=== PATIENT | male | born 1950 | race African-American/Black ===

== ENCOUNTER 2016-11-04 08:01 | Inpatient (IN) | payer MEDICARE, OTHER ==
[2016-11-04] MEDS ORDERED: LORAZEPAM INJ 2 MG/1 ML VIAL IM ONE (08:08)
[2016-11-04] MEDS ORDERED: LORAZEPAM INJ 2 MG/1 ML VIAL ONE ×2 (08:09→10:47)
--- NOTE | 2016-11-04 08:29 | ER Document Report ---
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 It is noted that the patient has been vomiting for past 2 days has not been holding his medications down. denies any other complaints denies any fevers or chills denies any abdominal pain. Patient did have a 2 minute seizure at home, on arrival here patient did have a another focal seizure eyes were to the left, unresponsive TRAVEL OUTSIDE OF THE [place] IN LAST 30 DAYS: No - HPI Onset: Just prior to arrival Onset/Duration: Sudden Quality of pain: No pain Severity: Mild Pain Level: Denies Associated symptoms: Nausea, Vomiting, Other Exacerbated by: Denies Relieved by: Denies Similar symptoms previously: Yes Recently seen / treated by doctor: Yes - Related Data Allergies/Adverse Reactions: No Known Allergies Allergy (Verified 05/14/14 09:35) Past Medical History - Social History Smoking Status: Never Smoker Cigarette use (# per day): No Chew tobacco use (# tins/day): No Smoking Education Provided: No Family History: Reviewed & Not Pertinent - Past Medical History Cardiac Medical History: Reports: Hx Hypercholesterolemia, Hx Hypertension Neurological Medical History: Reports: Hx Seizures Psychiatric Medical History: Denies: Hx Depression Past Surgical History: Reports: Hx Neurologic Surgery - Brain tumor removal - Immunizations Hx Diphtheria, Pertussis, Tetanus Vaccination: Yes Hx Pneumococcal Vaccination: 05/16/14 Review of Systems - Review of Systems Notes: REVIEW OF SYSTEMS: CONSTITUTIONAL : Denies fever, chills, or sweats. Denies recent illness. EENT: Denies eye, ear, throat, or mouth pain or symptoms. Denies nasal or sinus congestion or discharge. Denies throat, tongue, or mouth swelling or difficulty swallowing. CARDIOVASCULAR: Denies chest pain. Denies palpitations or racing or irregular heart beat. Denies ankle edema. RESPIRATORY: Denies cough, cold, or chest congestion. Denies shortness of breath, difficulty breathing, or wheezing. GASTROINTESTINAL: Nausea vomiting GENITOURINARY: Denies difficulty urinating, painful urination, burning, frequency, blood in urine, or discharge. MUSCULOSKELETAL: Denies back or neck pain or stiffness. Denies joint pain or swelling. SKIN: Denies rash, lesions or sores. HEMATOLOGIC : Denies easy bruising or bleeding. LYMPHATIC: Denies swollen, enlarged glands. NEUROLOGICAL: Denies confusion or altered mental status. Denies passing out or loss of consciousness. Denies dizziness or lightheadedness. Denies headache. Denies weakness or paralysis or loss of use of either side. Denies problems with gait or speech. Denies sensory loss, numbness, or tingling. Denies seizures. PSYCHIATRIC: Denies anxiety or stress. Denies depression, suicidal ideation, or homicidal ideation. ALL OTHER SYSTEMS REVIEWED AND NEGATIVE. Dictation was performed using [employer] recognition software PHYSICAL EXAMINATION: GENERAL: Well-appearing, well-nourished and in no acute distress. HEAD: Atraumatic, normocephalic. EYES: Pupils equal round and reactive to light, extraocular movements intact, sclera anicteric, conjunctiva are normal. ENT: Nares patent, oropharynx clear without exudates. Moist mucous membranes. NECK: Normal range of motion, supple without lymphadenopathy LUNGS: Breath sounds clear to auscultation bilaterally and equal. No wheezes rales or rhonchi. HEART: Regular rate and rhythm without murmurs ABDOMEN: Soft, nontender, nondistended abdomen. No guarding, no rebound. No masses appreciated. Musculoskeletal: Normal range of motion, no pitting or edema. No cyanosis. NEUROLOGICAL: Patient seizing, resolved with Ativan. Patient postictal PSYCH: Normal mood, normal affect. SKIN: Warm, Dry, normal turgor, no rashes or lesions noted. Course - Re-evaluation Re-evalutation: 11/04/16 08:48 I believe the patient's seizure disorder has been worsened with his vomiting and inability to keep down his medications at this time. He has labs ordered at this time 11/04/16 10:28 it appears patient is quite hyponatremic, in acute renal fialure. IV fluids ordered, will admit ot his pcp 11/04/16 10:[address] Duncan who will accept to the [facility], defers on 3% at this time - Laboratory Result Diagrams: 11/04/16 09:37 11/04/16 09:37 Laboratory results interpreted by me: 11/04/16 11/04/16 11/04/16 09:37 09:37 09:37 WBC 14.9 H Hgb 12.8 L Seg Neutrophils % 84.0 H Lymphocytes % 9.9 L Absolute Neutrophils 12.5 H Sodium 117.7 L* Potassium 3.1 L Chloride 75 L BUN 38 H Creatinine 2.63 H Est GFR ( Amer) 30 L Est GFR (Non-Af Amer) 24 L Alkaline Phosphatase 146 H Phenytoin 5.5 L Critical Care Note - Critical Care Note Total time excluding time spent on procedures (mins): 38 Comments: 38 minutes of critical care time spent in direct contact evaluating and reevaluating the patient, treating symptoms, reviewing labs and studies and speaking with family and consultants excluding any procedures Discharge - Discharge Clinical Impression: Dehydration with hyponatremia, Renal insufficiency, Seizure Intractable nausea and vomiting Qualifiers: Vomiting type: unspecified Qualified Code(s): R11.2 - Nausea with vomiting, unspecified Admitting Provider: Todd Unit Admitted: [facility] Referrals: BRAULIO DUNCAN MD [Primary Care Provider] - Follow up as needed
[2016-11-04] MEDS ORDERED: ONDANSETRON HCL INJ/PF 4 MG/2 ML SDV IV ONE (08:38)
[2016-11-04] MEDS ORDERED: PHENYTOIN SODIUM EXTENDED 100 MG CAPSULE PO ONE (08:48)
[2016-11-04] MEDS ORDERED: PHENOBARBITAL 32.4 MG TABLET PO ONE (08:48)
[2016-11-04] MEDS ORDERED: NORMAL SALINE 500 ML IV ONE (08:49)
[2016-11-04 09:58] LABS: ABSOLUTE LYMPHOCYTES (AUTO) 1.5 10^3/uL (0.5-4.7); ABSOLUTE MONOCYTES (AUTO) 0.9 10^3/uL (0.1-1.4); ABSOLUTE NEUT (AUTO) 12.5 10^3/uL (1.7-8.2); BASOPHILS % (AUTO) 0.2 % (0-2); HEMATOCRIT 38.6 % (37.9-51.0); HEMOGLOBIN 12.8 g/dL (13.5-17.0); HGB HCT DIFFERENCE -0.2; LYMPHOCYTES % (AUTO) 9.9 % (13-45); MEAN CORPUSCULAR HEMOGLOBIN 27.6 pg (27.0-33.4); MEAN CORPUSCULAR HGB CONC 33.1 g/dL (32.0-36.0); MEAN CORPUSCULAR VOLUME 83 fl (80-97); MONOCYTES % (AUTO) 5.9 % (3-13); RED BLOOD COUNT 4.63 10^6/uL (4.35-5.55); RED CELL DISTRIBUTION WIDTH 13.6 % (11.5-14.0); WHITE BLOOD COUNT 14.9 10^3/uL (4.0-10.5)
[2016-11-04 10:14] LABS: ALANINE AMINOTRANSFERASE 28 U/L (21-72); ALBUMIN 4.3 g/dL (3.5-5.0); ALKALINE PHOSPHATASE 146 U/L (38-126); ASPARTATE AMINO TRANSFERASE 51 U/L (17-59); BILIRUBIN,DIRECT 0.2 mg/dL (0.0-0.4); BILIRUBIN,TOTAL 0.8 mg/dL (0.2-1.3); BLOOD UREA NITROGEN 38 mg/dL (7-20); CALCIUM 8.5 mg/dL (8.4-10.2); CARBON DIOXIDE 22 mmol/L (22-30); CHLORIDE 75 mmol/L (98-107); CREATININE RESULT 2.63 mg/dL (0.52-1.25); GLUCOSE 97 mg/dL (75-110); POTASSIUM 3.1 mmol/L (3.6-5.0)
[2016-11-04] MEDS ORDERED: NORMAL SALINE 1000 ML 1,000 ML IV ONE (10:21)
[2016-11-04 10:24] LABS: SODIUM 117.7 mmol/L (137-145)
[2016-11-04 10:25] LABS: ANION GAP 19 (5-19)
[2016-11-04] MEDS ORDERED: PROMETHAZINE HCL INJ 25 MG/1 ML VIAL IV PRN (17:54)
--- NOTE | 2016-11-04 18:22 | PDOC H&P ---
History of Present Illness Admission Date/PCP: 11/04/16 10:44 BRAULIO MEHDIVICTORIANOBRENNEN Patient complains of: Seizure, vomiting History of Present Illness: SEAN BECERRA is a 66 year old male known to my practice who was brought to the ED by medic due spousal reported episode of seizure activity at home. It was reported as tonic-clonic type that lasted about 2 minutes and recurrent at home before his alerted EMS. He had another episode while been evaluated in the ED. Spouse reported episodes of nausea and vomiting for the past 3 days. She denied any recent alcohol usage or ingestion by the patient. Due to his nausea and vomiting maintenance on his anti seizure medication have been difficult. Spouse reported complain about abdominal pain and persistent hiccups. She denied associated diarrhea, fever, or chills. No reported chest pain, or difficulty with breathing. There rattling cough without significant sputum production. At the time of my evaluation patient has had IV Lorazepam, oral Dilantin and Phenobarbital administration, following command but not full at his preadmission state. Past Medical History Cardiac Medical History: Reports: Hyperlipidema, Hypertension Neurological Medical History: Reports: Seizures Psychiatric Medical History: Denies: Depression Social History Smoking Status: Former Smoker Number of Years Smokin Last Time Smoked: 4 yrs ago Frequency of Alcohol Use: None Hx Recreational Drug Use: No Drugs: None Hx Prescription Drug Abuse: No - Advance Directive Resuscitation Status: Full Code Family History Family History: Reviewed & Not Pertinent Parental Family History Reviewed: Yes Children Family History Reviewed: Yes Sibling(s) Family History Reviewed.: Yes Medication/Allergy Home Medications: Aspirin [Ecotrin 81 mg EC Tablet] 81 mg PO DAILY 11/04/16 Gabapentin [Neurontin 300 mg Capsule] 300 mg PO Q8 11/04/16 Lisinopril [Prinivil 10 mg Tablet] 10 mg PO DAILY 11/04/16 Phenobarbital [Phenobarbital 32.4 Mg Tablet] 32.4 mg PO BID 11/04/16 Phenytoin Sodium Extended [Dilantin 100 mg Capsule.er] 100 mg PO QAM 11/04/16 Phenytoin Sodium Extended [Dilantin 100 mg Capsule.er] 100 mg PO QHS 11/04/16 Phenytoin Sodium Extended [Dilantin 100 mg Capsule.er] 200 mg PO DAILY@1400 01/15 Simvastatin [Zocor 10 mg Tablet] 10 mg PO QHS 11/04/16 Simvastatin [Zocor 20 mg Tablet] 20 mg PO DAILY 11/04/16 Allergies/Adverse Reactions: No Known Allergies Allergy (Verified 05/14/14 09:35) Review of Systems Constitutional: ABSENT: chills, fever(s), headache(s), weight gain, weight loss Eyes: ABSENT: visual disturbances Ears: ABSENT: hearing changes Nose, Mouth, and Throat: ABSENT: as per HPI, headache(s), mouth pain, sore throat, vertigo, other Cardiovascular: ABSENT: chest pain, dyspnea on exertion, edema, orthropnea, palpitations Respiratory: ABSENT: cough, hemoptysis Gastrointestinal: PRESENT: abdominal pain, nausea, vomiting. ABSENT: as per HPI , bloating, coffee ground emesis, constipation, diarrhea, dysphagia, heartburn, hematemesis, hematochezia, melena, other Genitourinary: ABSENT: dysuria, hematuria Musculoskeletal: ABSENT: joint swelling Integumentary: ABSENT: rash, wounds Neurological: PRESENT: confusion - post ictal, convulsions Psychiatric: ABSENT: anxiety, depression, homidical ideation, suicidal ideation Endocrine: ABSENT: cold intolerance, heat intolerance, polydipsia, polyuria Hematologic/Lymphatic: ABSENT: easy bleeding, easy bruising, lymphadenopathy Allergic/Immunologic: PRESENT: seasonal rhinorrhea Physical Exam Vital Signs: Temp Pulse Resp BP Pulse Ox 98.5 F 85 19 170/99 H 98 11/04/16 16:52 11/04/16 16:52 11/04/16 16:52 11/04/16 16:52 11/04/16 17:51 Intake & Output 11/03/16 11/04/16 11/05/16 06:59 06:59 06:59 Weight 77.8 kg General appearance: PRESENT: no acute distress, cooperative Head exam: PRESENT: atraumatic, normocephalic Eye exam: PRESENT: conjunctiva pink, EOMI, PERRLA. ABSENT: scleral icterus Ear exam: PRESENT: normal external ear exam Mouth exam: PRESENT: moist, tongue midline Teeth exam: ABSENT: dental caries, dental tenderness, edentulous, poor dentation , other Throat exam: ABSENT: post pharyngeal erythema, tonsillar erythema, tonsillar exudate, tonsillogmegaly, other Neck exam: PRESENT: full ROM. ABSENT: carotid bruit, JVD, lymphadenopathy, thyromegaly Respiratory exam: PRESENT: clear to auscultation tripp, crackles - scattered bilaterally, decreased breath sounds Cardiovascular exam: PRESENT: RRR. ABSENT: diastolic murmur, rubs, systolic murmur Pulses: PRESENT: normal dorsalis pedis pul, +2 pedal pulses bilateral Vascular exam: PRESENT: normal capillary refill GI/Abdominal exam: PRESENT: normal bowel sounds, soft. ABSENT: distended, guarding, mass, organolmegaly, rebound, tenderness Rectal exam: PRESENT: deferred Extremities exam: PRESENT: full ROM Musculoskeletal exam: PRESENT: deformity - related to joint involvement with arthritis Neurological exam: PRESENT: alert, awake, oriented to person, reflexes normal, CN II-XII grossly intact. ABSENT: altered, oriented to place, oriented to time , oriented to situation, abnormal gait, ataxia, motor sensory deficit, normal gait, aphasic, other Psychiatric exam: PRESENT: appropriate affect, normal mood. ABSENT: homicidal ideation, suicidal ideation Skin exam: PRESENT: dry, intact, warm. ABSENT: cyanosis, rash Results Laboratory Results: See Weekdone for laboratory information. These were reviewed and form significant part of my medial decision making. Assessment & Plan - Diagnosis (1) Dehydration with hyponatremia Is this a current diagnosis for this admission?: YesPlan: See admitting physician orders. (2) Intractable nausea and vomiting Qualifiers: Vomiting type: unspecified Qualified Code(s): R11.2 - Nausea with vomiting, unspecified Is this a current diagnosis for this admission?: YesPlan: See admitting physician orders. (4) Intractable hiccups Is this a current diagnosis for this admission?: YesPlan: See admitting physician orders. (5) HLD (hyperlipidemia) Qualifiers: Hyperlipidemia type: pure hypercholesterolemia Qualified Code(s): E78.00 - Pure hypercholesterolemia, unspecified; E78.0 - Pure hypercholesterolemia Is this a current diagnosis for this admission?: YesPlan: See admitting physician orders. (6) HTN (hypertension) Qualifiers: Hypertension type: essential hypertension Qualified Code(s): I10 - Essential (primary) hypertension Is this a current diagnosis for this admission?: YesPlan: See admitting physician orders. (7) Hypopotassemia Is this a current diagnosis for this admission?: YesPlan: See admitting physician orders. 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
[2016-11-04] MEDS ORDERED: CHLORPROMAZINE HCL INJ 25 MG/1 ML AMPULE IV ONE (19:00)
[2016-11-04] MEDS: PHENOBARBITAL 32.4 MG TABLET PO SCH (19:49)
[2016-11-04] MEDS: NORMAL SALINE 1000 ML 1,000 ML IV PRN (19:50)
[2016-11-04] MEDS: SIMVASTATIN 10 MG TABLET PO SCH (22:40)
[2016-11-04] MEDS: GABAPENTIN 300 MG CAPSULE PO SCH (22:40)
[2016-11-04] MEDS: PHENYTOIN SODIUM EXTENDED 100 MG CAPSULE PO SCH (22:40)
[2016-11-04 23:39] LABS: APPEARANCE,URINE CLEAR; BILIRUBIN,URINE NEGATIVE (NEGATIVE); GLUCOSE, URINE NEGATIVE (NEGATIVE); KETONES,URINE TRACE mg/dL (NEGATIVE); LEUKOCYTE ESTERASE,URINE NEGATIVE (NEGATIVE); NITRITE,URINE NEGATIVE (NEGATIVE); PROTEIN,URINE NEGATIVE (NEGATIVE); URINE SPECIFIC GRAVITY 1.003; UROBILINOGEN,URINE NEGATIVE mg/dL (<2.0)
[2016-11-05 05:13] LABS: ABSOLUTE LYMPHOCYTES (AUTO) 1.6 10^3/uL (0.5-4.7); ABSOLUTE MONOCYTES (AUTO) 0.8 10^3/uL (0.1-1.4); BASOPHILS % (AUTO) 0.1 % (0-2); HEMOGLOBIN 14.2 g/dL (13.5-17.0); HGB HCT DIFFERENCE -1.4; MEAN CORPUSCULAR HEMOGLOBIN 27.3 pg (27.0-33.4); MEAN CORPUSCULAR HGB CONC 32.2 g/dL (32.0-36.0); MEAN CORPUSCULAR VOLUME 85 fl (80-97); MONOCYTES % (AUTO) 10.1 % (3-13); RED BLOOD COUNT 5.18 10^6/uL (4.35-5.55); RED CELL DISTRIBUTION WIDTH 13.8 % (11.5-14.0); SEGMENTED NEUTROPHILS % (AUTO) 67.8 % (42-78); WHITE BLOOD COUNT 7.5 10^3/uL (4.0-10.5)
[2016-11-05] MEDS: GABAPENTIN 300 MG CAPSULE PO SCH ×3 (05:21→21:38)
[2016-11-05] MEDS: NORMAL SALINE 1000 ML 1,000 ML IV PRN ×2 (05:21→15:24)
[2016-11-05] MEDS: LANSOPRAZOLE 30 MG TAB.RAP.DR PO SCH (05:21)
[2016-11-05 05:28] LABS: ALANINE AMINOTRANSFERASE 31 U/L (21-72); ALBUMIN 4.5 g/dL (3.5-5.0); ALKALINE PHOSPHATASE 153 U/L (38-126); ANION GAP 14 (5-19); ASPARTATE AMINO TRANSFERASE 52 U/L (17-59); BILIRUBIN,DIRECT 0.4 mg/dL (0.0-0.4); BILIRUBIN,TOTAL 1.2 mg/dL (0.2-1.3); BLOOD UREA NITROGEN 27 mg/dL (7-20); CALCIUM 9.1 mg/dL (8.4-10.2); CARBON DIOXIDE 29 mmol/L (22-30); CHLORIDE 91 mmol/L (98-107); CREATININE RESULT 1.45 mg/dL (0.52-1.25); GLUCOSE 102 mg/dL (75-110); POTASSIUM 3.1 mmol/L (3.6-5.0); SODIUM 133.8 mmol/L (137-145); TOTAL PROTEIN 8.8 g/dL (6.3-8.2)
[2016-11-05] MEDS: ENOXAPARIN SODIUM INJ 40 MG/0.4 ML DISP.SYRIN SUBCUT SCH (09:16)
[2016-11-05] MEDS: PHENOBARBITAL 32.4 MG TABLET PO SCH ×2 (09:16→19:01)
[2016-11-05] MEDS: LISINOPRIL 10 MG TABLET PO SCH (09:16)
[2016-11-05] MEDS: PHENYTOIN SODIUM EXTENDED 100 MG CAPSULE PO SCH ×3 (09:17→21:38)
[2016-11-05] MEDS: POTASSIUM CHLORIDE 10 MEQ TABLET.SA PO SCH ×2 (11:09→13:05)
--- NOTE | 2016-11-05 14:57 | PDOC PROGRESS REPORT ---
Subjective Progress Note for:: 11/05/16 Subjective:: Patient is more lucid and able to contribute to his medical history at the time of my assessment this afternoon but assumed admission due to his persistent hiccups. Denied any nausea or vomiting. No abdominal pain. His hiccups do persist. No chest pain or difficulty with breathing. Physical Exam Vital Signs: Temp Pulse Resp BP Pulse Ox 99.8 F 83 27 H 151/73 H 98 11/05/16 11:46 11/05/16 14:00 11/05/16 11:46 11/05/16 11:46 11/05/16 11:46 Intake & Output 11/04/16 11/05/16 11/06/16 06:59 06:59 06:59 Intake Total 1288 710 Output Total 800 1000 Balance 488 -290 General appearance: PRESENT: no acute distress, cooperative Head exam: PRESENT: atraumatic, normocephalic Eye exam: PRESENT: conjunctiva pink, EOMI, PERRLA. ABSENT: scleral icterus Mouth exam: PRESENT: moist Respiratory exam: PRESENT: clear to auscultation tripp Cardiovascular exam: PRESENT: RRR. ABSENT: diastolic murmur, rubs, systolic murmur GI/Abdominal exam: PRESENT: normal bowel sounds, soft. ABSENT: distended, guarding, mass, organolmegaly, rebound, tenderness Extremities exam: PRESENT: full ROM Musculoskeletal exam: PRESENT: deformity - related to joint involvement with arthritis Neurological exam: PRESENT: alert, awake, oriented to person, oriented to place , oriented to time, oriented to situation, CN II-XII grossly intact, other - there is persistent hiccups throughout the duration of my visit.. ABSENT: motor sensory deficit Psychiatric exam: PRESENT: appropriate affect, normal mood. ABSENT: homicidal ideation, suicidal ideation Skin exam: PRESENT: dry, intact, warm. ABSENT: cyanosis, rash Results Laboratory Results: 11/05/16 04:51 11/05/16 04:51 11/04/16 11/05/16 11/05/16 23:15 04:51 04:51 WBC 7.5 RBC 5.18 Hgb 14.2 Hct 44.0 MCV 85 MCH 27.3 MCHC 32.2 RDW 13.8 Plt Count 216 Seg Neutrophils % 67.8 Lymphocytes % 22.0 Monocytes % 10.1 Eosinophils % 0.0 Basophils % 0.1 Absolute Neutrophils 5.0 Absolute Lymphocytes 1.6 Absolute Monocytes 0.8 Absolute Eosinophils 0.0 Absolute Basophils 0.0 Sodium 133.8 L Potassium 3.1 L Chloride 91 L Carbon Dioxide 29 Anion Gap 14 BUN 27 H Creatinine 1.45 H Est GFR ( Amer) 59 L Est GFR (Non-Af Amer) 49 L Glucose 102 Calcium 9.1 Magnesium Total Bilirubin 1.2 AST 52 ALT 31 Alkaline Phosphatase 153 H Total Protein 8.8 H Albumin 4.5 Urine Color STRAW Urine Appearance CLEAR Urine pH 6.0 Ur Specific [place] 1.003 Urine Protein NEGATIVE Urine Glucose (UA) NEGATIVE Urine Ketones TRACE H Urine Blood MODERATE H Urine Nitrite NEGATIVE Ur Leukocyte Esterase NEGATIVE Urine WBC (Auto) 1 Urine RBC (Auto) 0 11/05/16 04:51 WBC RBC Hgb Hct MCV MCH MCHC RDW Plt Count Seg Neutrophils % Lymphocytes % Monocytes % Eosinophils % Basophils % Absolute Neutrophils Absolute Lymphocytes Absolute Monocytes Absolute Eosinophils Absolute Basophils Sodium Potassium Chloride Carbon Dioxide Anion Gap BUN Creatinine Est GFR ( Amer) Est GFR (Non-Af Amer) Glucose Calcium Magnesium 2.3 Total Bilirubin AST ALT Alkaline Phosphatase Total Protein Albumin Urine Color Urine Appearance Urine pH Ur Specific [place] Urine Protein Urine Glucose (UA) Urine Ketones Urine Blood Urine Nitrite Ur Leukocyte Esterase Urine WBC (Auto) Urine RBC (Auto) Impressions: Chest X-Ray 11/04/16 00:00 IMPRESSION: NO SIGNIFICANT RADIOGRAPHIC FINDING IN THE CHEST. Assessment & Plan - Diagnosis (1) Dehydration with hyponatremia Is this a current diagnosis for this admission?: YesPlan: Continue IV Normal saline infusion. Repeat his BMP as needed. (2) Intractable nausea and vomiting Qualifiers: Vomiting type: unspecified Qualified Code(s): R11.2 - Nausea with vomiting, unspecified Is this a current diagnosis for this admission?: YesPlan: See attending physician orders. (3) Seizure Is this a current diagnosis for this admission?: YesPlan: See attending physician orders. (4) Intractable hiccups Is this a current diagnosis for this admission?: YesPlan: See attending physician orders. (5) HLD (hyperlipidemia) Qualifiers: Hyperlipidemia type: pure hypercholesterolemia Qualified Code(s): E78.00 - Pure hypercholesterolemia, unspecified; E78.0 - Pure hypercholesterolemia Is this a current diagnosis for this admission?: YesPlan: See attending physician orders. (6) HTN (hypertension) Qualifiers: Hypertension type: essential hypertension Qualified Code(s): I10 - Essential (primary) hypertension Is this a current diagnosis for this admission?: YesPlan: See attending physician orders. (7) Hypopotassemia Is this a current diagnosis for this admission?: YesPlan: See attending physician orders. Patient received oral supplementation of potassium chloride for his persistent hypokalemia. - Time Time Spent with patient: 25-34 minutes Medications reviewed and adjusted accordingly: Yes Anticipated discharge: Home with Homehealth Within: Other - Inpatient Certification Medical Necessity: Need Close Monitoring Due to Risk of Patient Decompensation, Need For IV Fluids, Risk of Complication if Not Cared For in Hospital Post Hospital Care: D/C Stain Applicator Documentation - Plan Summary Plan Summary: See attending physician orders.
[2016-11-05] MEDS ORDERED: CHLORPROMAZINE HCL INJ 25 MG/1 ML AMPULE IV ONE (16:30)
[2016-11-05] MEDS: SIMVASTATIN 10 MG TABLET PO SCH (21:38)
[2016-11-06] MEDS: NORMAL SALINE 1000 ML 1,000 ML IV PRN ×2 (03:09→14:12)
[2016-11-06] MEDS: GABAPENTIN 300 MG CAPSULE PO SCH ×2 (05:51→21:05)
[2016-11-06] MEDS: LANSOPRAZOLE 30 MG TAB.RAP.DR PO SCH (05:51)
[2016-11-06] MEDS: PHENYTOIN SODIUM EXTENDED 100 MG CAPSULE PO SCH ×3 (08:35→21:06)
[2016-11-06] MEDS: ENOXAPARIN SODIUM INJ 40 MG/0.4 ML DISP.SYRIN SUBCUT SCH (08:35)
[2016-11-06] MEDS: PHENOBARBITAL 32.4 MG TABLET PO SCH ×2 (10:09→17:22)
[2016-11-06] MEDS: LISINOPRIL 10 MG TABLET PO SCH (10:09)
[2016-11-06 12:41] LABS: ANION GAP 18 (5-19); BLOOD UREA NITROGEN 20 mg/dL (7-20); CALCIUM 9.1 mg/dL (8.4-10.2); CARBON DIOXIDE 22 mmol/L (22-30); CHLORIDE 100 mmol/L (98-107); CREATININE RESULT 1.01 mg/dL (0.52-1.25); GLUCOSE 72 mg/dL (75-110); POTASSIUM 3.9 mmol/L (3.6-5.0); SODIUM 139.7 mmol/L (137-145)
--- NOTE | 2016-11-06 13:29 | PDOC PROGRESS REPORT ---
Subjective Progress Note for:: 11/06/16 Subjective:: Patient's hiccups spells do continue but less intense. No chest pain or difficulty with breathing. No nausea, vomiting, or abdominal pain. No fever or chills. Less coughing and chest congestion. Physical Exam Vital Signs: Temp Pulse Resp BP Pulse Ox 98.7 F 76 18 177/91 H 97 11/06/16 08:00 11/06/16 08:00 11/06/16 08:00 11/06/16 08:00 11/06/16 08:00 Intake & Output 11/05/16 11/06/16 11/07/16 06:59 06:59 06:59 Intake Total 1288 4016 355 Output Total 800 1700 300 Balance 488 2316 55 Weight 77.6 kg Physical Exam: General appearance: PRESENT: no acute distress, cooperative Head exam: PRESENT: atraumatic, normocephalic Eye exam: PRESENT: conjunctiva pink, EOMI, PERRLA. ABSENT: scleral icterus Mouth exam: PRESENT: moist Respiratory exam: PRESENT: clear to auscultation tripp Cardiovascular exam: PRESENT: RRR. ABSENT: diastolic murmur, rubs, systolic murmur GI/Abdominal exam: PRESENT: normal bowel sounds, soft. ABSENT: distended, guarding, mass, organomegaly, rebound, tenderness Extremities exam: PRESENT: full ROM Musculoskeletal exam: PRESENT: deformity - related to joint involvement with arthritis Neurological exam: PRESENT: alert, awake, oriented to person, oriented to place , oriented to time, oriented to situation, CN II-XII grossly intact, other - there are episodes of hiccups duration of my visit.. ABSENT: motor sensory deficit Psychiatric exam: PRESENT: appropriate affect, normal mood. ABSENT: homicidal ideation, suicidal ideation Skin exam: PRESENT: dry, intact, warm. ABSENT: cyanosis, rash Results Laboratory Results: 11/05/16 04:51 11/06/16 12:07 11/06/16 12:07 Sodium 139.7 Potassium 3.9 Chloride 100 Carbon Dioxide 22 Anion Gap 18 BUN 20 Creatinine 1.01 Est GFR ( Amer) > 60 Est GFR (Non-Af Amer) > 60 Glucose 72 L Calcium 9.1 Impressions: Chest X-Ray 11/04/16 00:00 IMPRESSION: NO SIGNIFICANT RADIOGRAPHIC FINDING IN THE CHEST. Assessment & Plan - Diagnosis (1) Dehydration with hyponatremia Is this a current diagnosis for this admission?: YesPlan: Continue IV Normal saline infusion. See attending physician orders. (2) Intractable nausea and vomiting Qualifiers: Vomiting type: unspecified Qualified Code(s): R11.2 - Nausea with vomiting, unspecified Is this a current diagnosis for this admission?: YesPlan: See attending physician orders. (3) Seizure Is this a current diagnosis for this admission?: YesPlan: See attending physician orders. (4) Intractable hiccups Is this a current diagnosis for this admission?: YesPlan: See attending physician orders. I will increase Gabapentin to 600 mg p.o q8hrs. (5) HLD (hyperlipidemia) Qualifiers: Hyperlipidemia type: pure hypercholesterolemia Qualified Code(s): E78.00 - Pure hypercholesterolemia, unspecified; E78.0 - Pure hypercholesterolemia Is this a current diagnosis for this admission?: YesPlan: See attending physician orders. (6) HTN (hypertension) Qualifiers: Hypertension type: essential hypertension Qualified Code(s): I10 - Essential (primary) hypertension Is this a current diagnosis for this admission?: YesPlan: See attending physician orders. (7) Hypopotassemia Is this a current diagnosis for this admission?: YesPlan: See attending physician orders. Resolved. - Time Time Spent with patient: 25-34 minutes Medications reviewed and adjusted accordingly: Yes Anticipated discharge: Home Within: Other - Inpatient Certification Medical Necessity: Need Close Monitoring Due to Risk of Patient Decompensation, Need For IV Fluids, Need For Continuous Telemetry Monitoring, Risk of Complication if Not Cared For in Hospital Post Hospital Care: D/C Sheet Ironworker Documentation - Plan Summary Plan Summary: See attending physician orders.
[2016-11-06] MEDS ORDERED: GABAPENTIN 300 MG CAPSULE PO ONE (15:00)
[2016-11-06] MEDS: SIMVASTATIN 10 MG TABLET PO SCH (21:05)
[2016-11-07] MEDS: GABAPENTIN 300 MG CAPSULE PO SCH ×3 (06:28→21:14)
[2016-11-07] MEDS: LANSOPRAZOLE 30 MG TAB.RAP.DR PO SCH (06:29)
[2016-11-07] MEDS: PHENYTOIN SODIUM EXTENDED 100 MG CAPSULE PO SCH ×3 (08:43→21:14)
[2016-11-07] MEDS: ENOXAPARIN SODIUM INJ 40 MG/0.4 ML DISP.SYRIN SUBCUT SCH (08:43)
[2016-11-07] MEDS: LISINOPRIL 10 MG TABLET PO SCH (09:31)
[2016-11-07] MEDS: PHENOBARBITAL 32.4 MG TABLET PO SCH ×2 (09:31→17:45)
--- NOTE | 2016-11-07 11:48 | PDOC PROGRESS REPORT ---
Subjective Progress Note for:: 11/07/16 Subjective:: Patient's hiccups spells is improving with adjustment of his Gabapentin dosage. No seizure activity since last clinical evaluation. No chest pain or difficulty with breathing. No nausea, vomiting, or abdominal pain. No fever or chills. Less coughing and chest congestion. Physical Exam Vital Signs: Temp Pulse Resp BP Pulse Ox 98.7 F 71 18 143/73 H 98 11/07/16 07:14 11/07/16 07:14 11/07/16 07:14 11/07/16 07:14 11/07/16 07:14 Intake & Output 11/06/16 11/07/16 11/08/16 06:59 06:59 06:59 Intake Total 4016 4882 Output Total 1700 2350 Balance 2316 2532 Weight 77.6 kg 73.6 kg Physical Exam: General appearance: PRESENT: no acute distress, cooperative Head exam: PRESENT: atraumatic, normocephalic Eye exam: PRESENT: conjunctiva pink, EOMI, PERRLA. ABSENT: scleral icterus Mouth exam: PRESENT: moist Respiratory exam: PRESENT: clear to auscultation tripp Cardiovascular exam: PRESENT: RRR. ABSENT: diastolic murmur, rubs, systolic murmur GI/Abdominal exam: PRESENT: normal bowel sounds, soft. ABSENT: distended, guarding, mass, organomegaly, rebound, tenderness Extremities exam: PRESENT: full ROM Musculoskeletal exam: PRESENT: deformity - related to joint involvement with arthritis Neurological exam: PRESENT: alert, awake, oriented to person, oriented to place , oriented to time, oriented to situation, CN II-XII grossly intact, other - there are episodes of hiccups duration of my visit.. ABSENT: motor sensory deficit Psychiatric exam: PRESENT: appropriate affect, normal mood. ABSENT: homicidal ideation, suicidal ideation Skin exam: PRESENT: dry, intact, warm. ABSENT: cyanosis, rash Results Laboratory Results: 11/05/16 04:51 11/06/16 12:07 11/06/16 12:07 Sodium 139.7 Potassium 3.9 Chloride 100 Carbon Dioxide 22 Anion Gap 18 BUN 20 Creatinine 1.01 Est GFR ( Amer) > 60 Est GFR (Non-Af Amer) > 60 Glucose 72 L Calcium 9.1 Impressions: Chest X-Ray 11/04/16 00:00 IMPRESSION: NO SIGNIFICANT RADIOGRAPHIC FINDING IN THE CHEST. Assessment & Plan - Diagnosis (1) Dehydration with hyponatremia Is this a current diagnosis for this admission?: YesPlan: Resolved hyponatremia and improved renal indices. D/C IV Normal saline infusion. See attending physician orders. (2) Intractable nausea and vomiting Qualifiers: Vomiting type: unspecified Qualified Code(s): R11.2 - Nausea with vomiting, unspecified Is this a current diagnosis for this admission?: YesPlan: Resolved. See attending physician orders. (3) Seizure Is this a current diagnosis for this admission?: YesPlan: Resolved acute seizure activity. See attending physician orders. (4) Intractable hiccups Is this a current diagnosis for this admission?: YesPlan: Resolved with increased Gabapentin dosage adjustment. See attending physician orders. (5) HLD (hyperlipidemia) Qualifiers: Hyperlipidemia type: pure hypercholesterolemia Qualified Code(s): E78.00 - Pure hypercholesterolemia, unspecified; E78.0 - Pure hypercholesterolemia Is this a current diagnosis for this admission?: YesPlan: See attending physician orders. (6) HTN (hypertension) Qualifiers: Hypertension type: essential hypertension Qualified Code(s): I10 - Essential (primary) hypertension Is this a current diagnosis for this admission?: YesPlan: See attending physician orders. (7) Hypopotassemia Is this a current diagnosis for this admission?: YesPlan: Resolved. See attending physician orders. 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
[2016-11-07] MEDS: NORMAL SALINE 1000 ML 1,000 ML IV PRN (11:55)
[2016-11-07] MEDS ORDERED: PROCHLORPERAZINE EDISYLATE INJ 10 MG/2 ML VIAL IV ONE (16:00)
[2016-11-07] MEDS ORDERED: NORMAL SALINE 500 ML with CHLORPROMAZINE HCL 25 MG IV ONE ×2 (16:30)
[2016-11-07] MEDS ORDERED: NORMAL SALINE IV ONE (17:00)
[2016-11-07] MEDS ORDERED: CHLORPROMAZINE HCL IV ONE (17:00)
[2016-11-07] MEDS: SIMVASTATIN 10 MG TABLET PO SCH (21:14)
[2016-11-08] MEDS: GABAPENTIN 300 MG CAPSULE PO SCH ×3 (05:36→21:14)
[2016-11-08] MEDS: LANSOPRAZOLE 30 MG TAB.RAP.DR PO SCH (05:36)
[2016-11-08] MEDS: PHENYTOIN SODIUM EXTENDED 100 MG CAPSULE PO SCH ×3 (08:38→21:15)
[2016-11-08] MEDS: ENOXAPARIN SODIUM INJ 40 MG/0.4 ML DISP.SYRIN SUBCUT SCH (08:38)
[2016-11-08] MEDS: LISINOPRIL 10 MG TABLET PO SCH (10:32)
[2016-11-08] MEDS: PHENOBARBITAL 32.4 MG TABLET PO SCH ×2 (10:32→17:56)
[2016-11-08] MEDS ORDERED: TRIMETHOBENZAMIDE HCL 300 MG CAPSULE PO PRN (11:59)
--- NOTE | 2016-11-08 12:07 | PDOC PROGRESS REPORT ---
Subjective Progress Note for:: 11/08/16 Subjective:: Patient had episode of nausea with vomiting since last clinical evaluation with need for IV Thorazine administration. No seizure activity, chest pain or difficulty with breathing. No nausea, vomiting, or abdominal pain. No fever or chills. Physical Exam Vital Signs: Temp Pulse Resp BP Pulse Ox 98.4 F 68 18 147/73 H 96 11/08/16 07:20 11/08/16 07:20 11/08/16 07:20 11/08/16 07:20 11/08/16 07:20 Intake & Output 11/07/16 11/08/16 11/09/16 06:59 06:59 06:59 Intake Total 4882 4604 Output Total 2350 3550 Balance 2532 1054 Weight 73.6 kg 71.9 kg Physical Exam: General appearance: PRESENT: no acute distress, cooperative Head exam: PRESENT: atraumatic, normocephalic Eye exam: PRESENT: conjunctiva pink, EOMI, PERRLA. ABSENT: scleral icterus Mouth exam: PRESENT: moist Respiratory exam: PRESENT: clear to auscultation tripp Cardiovascular exam: PRESENT: RRR. ABSENT: diastolic murmur, rubs, systolic murmur GI/Abdominal exam: PRESENT: normal bowel sounds, soft. ABSENT: distended, guarding, mass, organomegaly, rebound, tenderness Extremities exam: PRESENT: full ROM Musculoskeletal exam: PRESENT: deformity - related to joint involvement with arthritis Neurological exam: PRESENT: alert, awake, oriented to person, oriented to place , oriented to time, oriented to situation, CN II-XII grossly intact, ABSENT: motor sensory deficit Psychiatric exam: PRESENT: appropriate affect, normal mood. ABSENT: homicidal ideation, suicidal ideation Skin exam: PRESENT: dry, intact, warm. ABSENT: cyanosis, rash Results Laboratory Results: 11/05/16 04:51 11/06/16 12:07 Impressions: Chest X-Ray 11/04/16 00:00 IMPRESSION: NO SIGNIFICANT RADIOGRAPHIC FINDING IN THE CHEST. Assessment & Plan - Diagnosis (1) Dehydration with hyponatremia Is this a current diagnosis for this admission?: YesPlan: D/C IV Normal saline infusion. See attending physician orders. (2) Intractable nausea and vomiting Qualifiers: Vomiting type: unspecified Qualified Code(s): R11.2 - Nausea with vomiting, unspecified Is this a current diagnosis for this admission?: YesPlan: Resolved. See attending physician orders. (3) Seizure Is this a current diagnosis for this admission?: YesPlan: Resolved acute seizure activity. Emphasized compliance with anti seizure medication upon discharge. See attending physician orders. (4) Intractable hiccups Is this a current diagnosis for this admission?: YesPlan: Improved. See attending physician orders. (5) HLD (hyperlipidemia) Qualifiers: Hyperlipidemia type: pure hypercholesterolemia Qualified Code(s): E78.00 - Pure hypercholesterolemia, unspecified; E78.0 - Pure hypercholesterolemia Is this a current diagnosis for this admission?: YesPlan: See attending physician orders. (6) HTN (hypertension) Qualifiers: Hypertension type: essential hypertension Qualified Code(s): I10 - Essential (primary) hypertension Is this a current diagnosis for this admission?: YesPlan: See attending physician orders. (7) Hypopotassemia Is this a current diagnosis for this admission?: YesPlan: Resolved. See attending physician orders. 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
[2016-11-08] MEDS: SIMVASTATIN 10 MG TABLET PO SCH (21:14)
[2016-11-09] MEDS: GABAPENTIN 300 MG CAPSULE PO SCH (05:51)
[2016-11-09] MEDS: LANSOPRAZOLE 30 MG TAB.RAP.DR PO SCH (05:51)
--- NOTE | 2016-11-09 07:33 | PDOC DISCHARGE SUMMARY ---
General - Admit/Disc Date/PCP Admission Date/Primary Care Provider: 11/04/16 17:46 BRAULIO DAKOTA Discharge Date: 11/09/16 - Discharge Diagnosis (1) Dehydration with hyponatremia Is this a current diagnosis for this admission?: Yes (2) Intractable nausea and vomiting Is this a current diagnosis for this admission?: Yes (3) Seizure Is this a current diagnosis for this admission?: Yes (4) Intractable hiccups Is this a current diagnosis for this admission?: Yes (5) HLD (hyperlipidemia) Is this a current diagnosis for this admission?: Yes (6) HTN (hypertension) Is this a current diagnosis for this admission?: Yes (7) Hypopotassemia Is this a current diagnosis for this admission?: Yes - Additional Information Resuscitation Status: Full Code Discharge Diet: Other (Comments) - Low salt diet Discharge Activity: Activity As Tolerated, No Driving Home Medications: Aspirin [Ecotrin 81 mg EC Tablet] 81 mg PO DAILY 11/04/16 Lisinopril [Prinivil 10 mg Tablet] 10 mg PO DAILY 11/04/16 Phenobarbital [Phenobarbital 32.4 mg Tablet] 32.4 mg PO BID 11/04/16 Phenytoin Sodium Extended [Dilantin 100 mg Capsule.er] 100 mg PO QAM 11/04/16 Phenytoin Sodium Extended [Dilantin 100 mg Capsule.er] 100 mg PO QHS 11/04/16 Phenytoin Sodium Extended [Dilantin 100 mg Capsule.er] 200 mg PO DAILY@1400 01/15 Simvastatin [Zocor 10 mg Tablet] 10 mg PO QHS 11/04/16 Simvastatin [Zocor 20 mg Tablet] 20 mg PO DAILY 11/04/16 Gabapentin [Neurontin] 600 mg PO TID #90 tablet 11/09/16 Trimethobenzamide HCl [Tigan 300 mg Capsule] 300 mg PO QIDP PRN #60 capsule 06/17 History of Present Illness History of Present Illness: SEAN BECERRA is a 66 year old male known to my practice who was brought to the ED by medic due spousal reported episode of seizure activity at home. It was reported as tonic-clonic type that lasted about 2 minutes and recurrent at home before his alerted EMS. He had another episode while been evaluated in the ED. Spouse reported episodes of nausea and vomiting for the past 3 days. She denied any recent alcohol usage or ingestion by the patient. Due to his nausea and vomiting maintenance on his anti seizure medication have been difficult. Spouse reported complain about abdominal pain and persistent hiccups. She denied associated diarrhea, fever, or chills. No reported chest pain, or difficulty with breathing. There rattling cough without significant sputum production. At the time of my evaluation patient has had IV Lorazepam, oral Dilantin and Phenobarbital administration, following command but not full at his preadmission state. Hospital Course Hospital Course: Patient presented with recurrent seizure activities following couple of days with persistent hiccups, nausea, and vomiting. His presenting anti seizure medications including phenytoin and phenobarbital were reported subtherapeutic. He was found to be dehydrated with hyponatremia probably due to persistent vomiting. He was managed with IV Lorazepam for active seizure with satisfactory response. Patient had IV Thorazine for his intractable hiccups with good response and resolution of symptoms. He was able to tolerate his oral medications. His Gabapentin was increased to 600 mg p.o tid for his hiccups management and beneficial effect on his seizure. He has remain seizure free since admission and agreeable to discharge home today. He will follow up with me in the office as instructed upon discharge. Physical Exam Vital Signs: Temp Pulse Resp BP Pulse Ox 98.6 F 60 20 124/62 92 11/09/16 04:02 11/09/16 04:02 11/09/16 04:02 11/09/16 04:02 11/09/16 04:02 Intake & Output 11/08/16 11/09/16 11/10/16 06:59 06:59 06:59 Intake Total 4604 2425 Output Total 3550 600 Balance 1054 1825 Weight 71.9 kg 75.8 kg Physical Exam: General appearance: PRESENT: no acute distress, cooperative Head exam: PRESENT: atraumatic, normocephalic Eye exam: PRESENT: conjunctiva pink, EOMI, PERRLA. ABSENT: scleral icterus Mouth exam: PRESENT: moist Respiratory exam: PRESENT: clear to auscultation tripp Cardiovascular exam: PRESENT: RRR. ABSENT: diastolic murmur, rubs, systolic murmur GI/Abdominal exam: PRESENT: normal bowel sounds, soft. ABSENT: distended, guarding, mass, organomegaly, rebound, tenderness Extremities exam: PRESENT: full ROM Musculoskeletal exam: PRESENT: deformity - related to joint involvement with arthritis Neurological exam: PRESENT: alert, awake, oriented to person, oriented to place , oriented to time, oriented to situation, CN II-XII grossly intact, ABSENT: motor sensory deficit Psychiatric exam: PRESENT: appropriate affect, normal mood. ABSENT: homicidal ideation, suicidal ideation Skin exam: PRESENT: dry, intact, warm. ABSENT: cyanosis, rash Results Laboratory Results: 11/05/16 04:51 11/06/16 12:07 Impressions: Chest X-Ray 11/04/16 00:00 IMPRESSION: NO SIGNIFICANT RADIOGRAPHIC FINDING IN THE CHEST. Qualifiers PATEINT BEING DISCHARGED WITH ANY OF THE FOLLOWING DIAGNOSIS?: No Plan Discharge Plan: D/C home today with follow up in the office as instructed upon discharge. Time Spent: Less than 30 Minutes
[2016-11-09 08:43] VITALS: BP 108/66
[2016-11-09] MEDS: PHENYTOIN SODIUM EXTENDED 100 MG CAPSULE PO SCH (09:12)
[2016-11-09] MEDS: PHENOBARBITAL 32.4 MG TABLET PO SCH (09:12)
[2016-11-09] MEDS: LISINOPRIL 10 MG TABLET PO SCH (09:12)
[2016-11-09] MEDS: ENOXAPARIN SODIUM INJ 40 MG/0.4 ML DISP.SYRIN SUBCUT SCH (09:18)
== END 2016-11-09 10:39 | disposition home or self-care (01) | DRG 101 ==
LOC: ER 08:01 → UNDOADMIN 10:44 → EH 10:44 → 3W 16:28
PROVIDERS: ADMIT Internal Medicine Geriatric Medicine; ATTEND Internal Medicine Geriatric Medicine
DX: G40.409 Other generalized epilepsy and epileptic syndromes, not intractable, without status epilepticus (principal); N17.9 Acute kidney failure, unspecified; E87.1 Hypo-osmolality and hyponatremia; R06.6 Hiccough; E86.0 Dehydration; R11.2 Nausea with vomiting, unspecified; E78.00 Pure hypercholesterolemia, unspecified; I10 Essential (primary) hypertension; E87.6 Hypokalemia; F17.210 Nicotine dependence, cigarettes, uncomplicated; Z79.82 Long term (current) use of aspirin; Z79.899 Other long term (current) drug therapy
CPT/HCPCS: 36415; 71020; 80048; 80053; 80184; 80185; 81001; 83735; 85025; 96372; 96374; 99291; J1650; J2060; J2405; J2550; J3230; J3490; J7030; J7040; J7050

== ENCOUNTER → 2017-12-21 | Outpatient (CLI) | payer MEDICARE, OTHER | LOC: OD 12:30 | PROVIDERS: ATTEND Internal Medicine Geriatric Medicine | DX: G40.909 Epilepsy, unspecified, not intractable, without status epilepticus (principal) | CPT/HCPCS: 36415; 80185 ==

== ENCOUNTER 2018-04-23 05:53 | Inpatient (IN) | payer MEDICARE, OTHER ==
[2018-04-23 06:53] LABS: ABSOLUTE LYMPHOCYTES (AUTO) 0.4 10^3/uL (0.5-4.7); ABSOLUTE MONOCYTES (AUTO) 0.2 10^3/uL (0.1-1.4); ABSOLUTE NEUT (AUTO) 5.8 10^3/uL (1.7-8.2); BASOPHILS % (AUTO) 0.1 % (0-2); EOSINOPHILS % (AUTO) 0.2 % (0-6); HEMOGLOBIN 12.2 g/dL (13.5-17.0); LYMPHOCYTES % (AUTO) 5.7 % (13-45); MEAN CORPUSCULAR HEMOGLOBIN 28.6 pg (27.0-33.4); MEAN CORPUSCULAR VOLUME 86 fl (80-97); MONOCYTES % (AUTO) 3.7 % (3-13); PLATELET COUNT 207 10^3/uL (150-450); RED BLOOD COUNT 4.29 10^6/uL (4.35-5.55); RED CELL DISTRIBUTION WIDTH 13.9 % (11.5-14.0); SEGMENTED NEUTROPHILS % (AUTO) 90.3 % (42-78); TOTAL CELLS COUNTED % (AUTO) 100 %; WHITE BLOOD COUNT 6.4 10^3/uL (4.0-10.5)
--- NOTE | 2018-04-23 06:53 | ER Document Report ---
ED Seizure - General Information source: Patient <JAGRUTI KOHLI - Last Filed: 04/23/18 07:03> <KIMOJESSICAWILLIAN - Last Filed: 04/23/18 10:03> - General Chief Complaint: Seizure Stated Complaint: POSSIBLE SEIZURE Time Seen by Provider: 04/23/18 06:28 Notes: 67-year-old male with a history of brain tumor fibrous dysplasia resection in 2008 that presents to the emergency department today with complaints of a seizure. Patient developed seizures after having this tumor removed. Patient' s last seizure was May 25 and at that time his seizure medications were found to be subtherapeutic. Family at bedside states that at 2200 the patient was "spitting up" but was able to communicate and did not seem disoriented however at 0400 this morning when family checked on him he was disoriented as if he had just had a seizure. Family states there they never visualized any shaking. Patient is on phenobarbital and Dilantin for seizures. Family states after the patient has a seizure he is sometimes postictal for an extended period of time and his symptoms today are consistent with his postictal symptoms in the past. (JAGRUTI KOHLI) - Related Data Allergies/Adverse Reactions: No Known Allergies Allergy (Verified 05/24/17 10:17) Past Medical History - General Information source: Patient - Social History Smoking Status: Unknown if Ever Smoked Cigarette use (# per day): No Frequency of alcohol use: None Drug Abuse: None Lives with: Family Family History: Reviewed & Not Pertinent Patient has suicidal ideation: No Patient has homicidal ideation: No - Past Medical History Cardiac Medical History: Reports: Hx Hypercholesterolemia, Hx Hypertension Neurological Medical History: Reports: Hx Seizures Past Surgical History: Reports: Hx Neurologic Surgery - Brain tumor removal, Other - Brain tumor Fibrous Dysplasia resection - Immunizations Hx Diphtheria, Pertussis, Tetanus Vaccination: Yes Hx Pneumococcal Vaccination: 05/16/14 <JAGRUTI KOHLI - Last Filed: 04/23/18 07:03> Review of Systems - Review of Systems -: Yes ROS unobtainable due to patient's medical condition - Postictal Constitutional: No symptoms reported EENT: No symptoms reported Cardiovascular: No symptoms reported Respiratory: No symptoms reported Gastrointestinal: No symptoms reported Genitourinary: No symptoms reported Male Genitourinary: No symptoms reported Musculoskeletal: No symptoms reported Skin: No symptoms reported Hematologic/Lymphatic: No symptoms reported Neurological/Psychological: See HPI, Seizure -: Yes All other systems reviewed and negative <JAGRUTI KOHLI - Last Filed: 04/23/18 07:03> - Vital signs Vitals: Temp 101.9 F H 04/23/18 05:58 Course - Laboratory Result Diagrams: 04/23/18 06:27 04/23/18 06:27 <JAGRUTI KOHLI - Last Filed: 04/23/18 07:03> - Laboratory Result Diagrams: 04/23/18 06:27 04/23/18 06:27 - Diagnostic Test Radiology reviewed: Image reviewed - Lower lobe pneumonia - EKG Interpretation by Nh EKG shows normal: Sinus rhythm, [place], Intervals, QRS Complexes. abnormal: ST-T Waves - Borderline anterior lateral T abnormalities Rate: Normal - 75 Rhythm: NSR [place]/QRS: Left axis deviation When compared to previous EKG there are: Changes noted - Anterolateral T abnormalities are new - Consults Dr. Luciano Time consulted: 10:00 Consulted provider: will see as inpatient <WILLIAN MALIN - Last Filed: 04/23/18 10:03> - Vital Signs Vital signs: Temp Pulse Resp BP Pulse Ox 101.9 F H 21 H 160/72 H 94 04/23/18 05:58 04/23/18 06:16 04/23/18 06:16 04/23/18 06:16 - Laboratory Laboratory results interpreted by me: 04/23/18 04/23/18 04/23/18 06:27 06:27 06:54 RBC 4.29 L Hgb 12.2 L Hct 37.0 L Seg Neutrophils % 90.3 H Lymphocytes % 5.7 L Absolute Lymphocytes 0.4 L Glucose 132 H Direct Bilirubin 0.6 H ALT 11 L Urine Blood Urine Urobilinogen Phenytoin 29.1 H* 04/23/18 08:16 RBC Hgb Hct Seg Neutrophils % Lymphocytes % Absolute Lymphocytes Glucose Direct Bilirubin ALT Urine Blood SMALL H Urine Urobilinogen 4.0 H Phenytoin Critical Care Note - Critical Care Note Total time excluding time spent on procedures (mins): 35 <WILLIAN MALIN - Last Filed: 04/23/18 10:03> Discharge <JAGRUTI KOHLI - Last Filed: 04/23/18 07:03> - Discharge Admitting Provider: Todd - Dr. Luciano covering Unit Admitted: Telemetry <WILLIAN MALIN - Last Filed: 04/23/18 10:03> - Discharge Clinical Impression: Confusion, Seizure Dilantin toxicity Qualifiers: Encounter type: initial encounter Injury intent: accidental or unintentional Qualified Code(s): T42.0X1A - Poisoning by hydantoin derivatives, accidental ( unintentional), initial encounter Altered mental status Qualifiers: Altered mental status type: unspecified Qualified Code(s): R41.82 - Altered mental status, unspecified Fever Qualifiers: Fever type: unspecified Qualified Code(s): R50.9 - Fever, unspecified Right lower lobe pneumonia Qualifiers: Pneumonia type: due to unspecified organism Qualified Code(s): J18.1 - Lobar pneumonia, unspecified organism HTN (hypertension) Qualifiers: Hypertension type: essential hypertension Qualified Code(s): I10 - Essential ( primary) hypertension Condition: Good Disposition: ADMITTED INPATIENT Referrals: BRAULIO DUNCAN MD [Primary Care Provider] - Follow up as needed Scribe Attestation: 04/23/18 08:02 I personally performed the services described in the documentation, reviewed and edited the documentation which was dictated to the scribe in my presence, and it accurately records my words and actions. (WILLIAN MALIN) Scribe Documentation - Scribe Written by Scribe:: Dorie Cast, 04/23/2018 0745 acting as scribe for :: Kimo <JAGRUTI KOHLI - Last Filed: 04/23/18 07:03>
[2018-04-23 07:25] LABS: ALANINE AMINOTRANSFERASE 11 U/L (21-72); ALBUMIN 3.9 g/dL (3.5-5.0); ANION GAP 9 (5-19); ASPARTATE AMINO TRANSFERASE 21 U/L (17-59); BILIRUBIN,DIRECT 0.6 mg/dL (0.0-0.4); BILIRUBIN,TOTAL 0.6 mg/dL (0.2-1.3); BLOOD UREA NITROGEN 15 mg/dL (7-20); CARBON DIOXIDE 27 mmol/L (22-30); CHLORIDE 102 mmol/L (98-107); CREATINE KINASE 106 U/L (55-170); GLUCOSE 132 mg/dL (75-110); POTASSIUM 4.3 mmol/L (3.6-5.0); SODIUM 138.1 mmol/L (137-145); TOTAL PROTEIN 7.8 g/dL (6.3-8.2)
[2018-04-23 07:35] LABS: CREATINE KINASE MB 0.56 ng/mL (<4.55)
[2018-04-23 07:38] LABS: TROPONIN I < 0.012 ng/mL
[2018-04-23 07:44] LABS: ALKALINE PHOSPHATASE 122 U/L (38-126)
[2018-04-23] MEDS ORDERED: NORMAL SALINE 1000 ML 1,000 ML IV ONE (08:02)
[2018-04-23] MEDS ORDERED: ACETAMINOPHEN 325 MG TABLET PO ONE (08:11)
--- NOTE | 2018-04-23 08:21 | RADIOLOGY REPORT (SQ) ---
EXAM DESCRIPTION: CHEST SINGLE VIEW COMPLETED DATE/TIME: 04/23/2018 7:26 am REASON FOR STUDY: Seizures COMPARISON: 05/24/2017. EXAM PARAMETERS: NUMBER OF VIEWS: One view. TECHNIQUE: Single frontal radiographic view of the chest acquired. RADIATION DOSE: NA LIMITATIONS: None. FINDINGS: LUNGS AND PLEURA: Airspace disease in the right lower lobe. No large pleural effusion. N o pneumothorax. MEDIASTINUM AND HILAR STRUCTURES: No masses. Contour normal. HEART AND VASCULAR STRUCTURES: Heart normal in size. Normal vasculature. BONES: No acute findings. HARDWARE: None in the chest. OTHER: No other significant finding. IMPRESSION: RIGHT LOWER LOBE AIRSPACE DISEASE CONCERNING FOR PNEUMONIA. TECHNICAL DOCUMENTATION: JOB ID: [id number] [employer]- All Rights Reserved Reading location - IP/workstation name: [email or web address]
[2018-04-23 08:39] LABS: APPEARANCE,URINE CLEAR; BILIRUBIN,URINE NEGATIVE (NEGATIVE); COLOR,URINE STRAW; GLUCOSE, URINE NEGATIVE (NEGATIVE); KETONES,URINE NEGATIVE (NEGATIVE); LEUKOCYTE ESTERASE,URINE NEGATIVE (NEGATIVE); NITRITE,URINE NEGATIVE (NEGATIVE); PROTEIN,URINE NEGATIVE (NEGATIVE)
[2018-04-23] MEDS ORDERED: LEVOFLOXACIN 750 MG/D5W RTU 750 MG/150 ML RTUPB IV ONE (10:35)
--- NOTE | 2018-04-23 14:04 | RADIOLOGY REPORT (SQ) ---
EXAM DESCRIPTION: CT CHEST WITHOUT COMPLETED DATE/TIME: 04/23/2018 1:46 pm REASON FOR STUDY: pneumonia COMPARISON: CT chest 03/18/2015, 05/16/2014 TECHNIQUE: CT scan performed of the chest without intravenous contrast. Images reviewed with lung, soft tissue and bone windows. Reconstructed coronal and sagittal MPR images reviewed. All images st ored on PACS. All CT scanners at this facility use dose modulation, iterative reconstruction, and/or weight based d osing when appropriate to reduce radiation dose to as low as reasonably achievable (ALARA). [facility]: Dose Right [facility]: CareDose [facility]: Dose Right [facility]: Teradose 4D [facility]: [employer] RADIATION DOSE: CT Rad equipment meets quality standard of care and radiation dose reduction techniq ues were employed. CTDIvol: 8.6 mGy. DLP: 336 mGy-cm. mGy. LIMITATIONS: No technical limitations. FINDINGS: LUNGS AND PLEURA: There is debris or mucus in the right mainstem bronchus on axial images 23-26 Patchy diffuse airspace disease is now present in the right upper lobe, and right lower lobe worrisom e for pneumonia Minimal left patchy airspace disease superior segment lower lobe worrisome for pneumonia. No pleural effusions. No pneumothorax. HILAR AND MEDIASTINAL STRUCTURES: Mild mediastinal adenopathy likely reactive HEART AND VASCULAR STRUCTURES: No aneurysm. No pericardial effusion. Moderate coronary artery calci fications UPPER ABDOMEN: Hiatal hernia. Tiny stones in the gallbladder. THYROID AND OTHER SOFT TISSUES: No masses. No adenopathy. BONES: No significant finding. HARDWARE: None in the chest. OTHER: No other significant findings. IMPRESSION: Patchy bilateral airspace disease worrisome pneumonia. TECHNICAL DOCUMENTATION: JOB ID: [id number] Quality ID # [id number]: Final reports with documentation of one or more dose reduction techniques (e.g., Au tomated exposure control, adjustment of the mA and/or kV according to patient size, use of iterative reconstruction technique) 2010 [employer]- All Rights Reserved Reading location - IP/workstation name: [email or web address]
--- NOTE | 2018-04-23 14:33 | EKG REPORT ---
SEVERITY:- ABNORMAL ECG - SINUS RHYTHM LEFT AXIS DEVIATION CONSIDER POSTERIOR INFARCT BORDERLINE T ABNORMALITIES, ANT-LAT LEADS : Confirmed by: Alysa Garcia MD 23-Apr-2018 14:32:43
--- NOTE | 2018-04-23 16:08 | PDOC H&P ---
History of Present Illness Admission Date/PCP: 04/23/18 11:36 BRAULIO DUNCAN History of Present Illness: SEAN BECERRA is a 67 year old male, he has a history of seizure, on Dilantin, patient was brought to the emergency room by his spouse with EMS for evaluation of difficulty breathing, possible seizure poor response to verbal command. Patient spouse was worried, she thought the patient was having a seizure, he has a history of seizure disorder, in the emergency room he was evaluated, he was found to have elevated Dilantin level, the chest x-ray suggests pneumonia. I requested for CT scan of his lung without contrast, it demonstrated, debris or mucus in the right mainstem bronchus, also found was patchy diffuse airspace disease in the right upper lobe, right lower lobe, left patchy disease in the superior segment lower lobe worrisome for pneumonia, this suggests aspiration pneumonia based on the CT scan findings. I saw him in the emergency room, he is awake and responsive to my questions, he denies any cough but he admitted to shortness of breath the oxygen saturation on 2 L nasal cannula is more than 90% Past Medical History Cardiac Medical History: Reports: Hyperlipidema, Hypertension Neurological Medical History: Reports: Seizures Past Surgical History Past Surgical History: Reports: Other - Brain tumor Fibrous Dysplasia resection Social History Lives with: Family Smoking Status: Former Smoker Frequency of Alcohol Use: None Hx Recreational Drug Use: No Drugs: None Hx Prescription Drug Abuse: No Family History Family History: Reviewed & Not Pertinent Parental Family History Reviewed: Yes Children Family History Reviewed: Yes Sibling(s) Family History Reviewed.: Yes Medication/Allergy Home Medications: Aspirin [Ecotrin 81 mg EC Tablet] 81 mg PO DAILY 04/23/18 Gabapentin [Neurontin] 600 mg PO Q8 04/23/18 Lisinopril [Prinivil] 20 mg PO DAILY 04/23/18 Phenobarbital [Phenobarbital 32.4 mg Tablet] 32.4 mg PO Q12 04/23/18 Phenytoin Sodium Extended [Dilantin 100 mg Capsule.er] 200 mg PO Q12 04/23/18 Simvastatin [Zocor 20 mg Tablet] 20 mg PO QHS 04/23/18 Allergies/Adverse Reactions: No Known Allergies Allergy (Verified 05/24/17 10:17) Review of Systems Constitutional: PRESENT: chills, fever(s) Eyes: ABSENT: visual disturbances Ears: ABSENT: hearing changes Cardiovascular: ABSENT: chest pain, dyspnea on exertion, edema, orthropnea, palpitations Respiratory: PRESENT: dyspnea Gastrointestinal: ABSENT: abdominal pain, constipation, diarrhea, hematemesis, hematochezia, nausea, vomiting Genitourinary: ABSENT: dysuria, hematuria Musculoskeletal: ABSENT: joint swelling Integumentary: ABSENT: rash, wounds Neurological: ABSENT: abnormal gait, abnormal speech, confusion, dizziness, focal weakness, syncope Psychiatric: ABSENT: anxiety, depression, homidical ideation, suicidal ideation Endocrine: ABSENT: cold intolerance, heat intolerance, menstrual abnormalities, polydipsia, polyuria Hematologic/Lymphatic: ABSENT: easy bleeding, easy bruising, lymphadenopathy Physical Exam Vital Signs: Temp Pulse Resp BP Pulse Ox 101.9 F H 14 107/60 100 04/23/18 05:58 04/23/18 13:01 04/23/18 13:00 04/23/18 13:01 Intake & Output 04/22/18 04/23/18 04/24/18 06:59 06:59 06:59 Intake Total 150 Balance 150 General appearance: PRESENT: mild distress Head exam: PRESENT: atraumatic, normocephalic Eye exam: PRESENT: PERRLA Ear exam: PRESENT: normal external ear exam Mouth exam: PRESENT: moist, tongue midline Neck exam: PRESENT: full ROM Respiratory exam: PRESENT: crackles, other - He has crackles in both lung vazquez , worse on the right upper and lower lungs, minimal on the left lower lung Cardiovascular exam: PRESENT: RRR, +S1, +S2 Pulses: PRESENT: normal dorsalis pedis pul, +2 pedal pulses bilateral Vascular exam: PRESENT: normal capillary refill GI/Abdominal exam: PRESENT: normal bowel sounds, soft Rectal exam: PRESENT: deferred Neurological exam: PRESENT: alert, awake, oriented to person, oriented to place , oriented to time, oriented to situation, CN II-XII grossly intact Psychiatric exam: PRESENT: appropriate affect, normal mood Skin exam: PRESENT: dry, intact, warm Results Impressions: Chest CT 04/23/18 00:00 IMPRESSION: Patchy bilateral airspace disease worrisome pneumonia. Chest X-Ray 04/23/18 06:53 IMPRESSION: RIGHT LOWER LOBE AIRSPACE DISEASE CONCERNING FOR PNEUMONIA. Assessment & Plan - Diagnosis (1) Acute hypoxemic respiratory failure Is this a current diagnosis for this admission?: Yes Plan: Continue oxygen through nasal cannula (2) Aspiration pneumonia Qualifiers: Aspiration pneumonia type: unspecified Laterality: bilateral Lung location: unspecified part of lung Qualified Code(s): J69.0 - Pneumonitis due to inhalation of food and vomit Is this a current diagnosis for this admission?: Yes Plan: Start patient on antibiotic to cover anaerobes, gram-negative and gram-positive pathogens, CT scan findings is consistent with aspiration pneumonia, he has debris in the right mainstem bronchus, he has patchy diffuse airspace disease in both right and lower lobe of the right lung and lower lobe of the left lung, he will be started on Zosyn and Levaquin, Levaquin to cover atypical pathogens (3) Dilantin toxicity Qualifiers: Encounter type: initial encounter Injury intent: undetermined intent Qualified Code(s): T42.0X4A - Poisoning by hydantoin derivatives, undetermined, initial encounter Is this a current diagnosis for this admission?: Yes Plan: Dilantin on hold (4) Metabolic encephalopathy Is this a current diagnosis for this admission?: Yes Plan: Most likely due to combination of Dilantin toxicity and pneumonia (5) Epilepsy Qualifiers: Epilepsy type: unspecified Intractability: not intractable Status epilepticus: without status epilepticus Qualified Code(s): G40.909 - Epilepsy , unspecified, not intractable, without status epilepticus Is this a current diagnosis for this admission?: Yes
[2018-04-23] MEDS: IPRATROPIUM/ALBUTEROL 0.5-2.5 MG/3 ML AMPUL NEB SCH ×2 (16:18→19:40)
[2018-04-23 16:20] LABS: ARTERIAL BLOOD BASE EXCESS 0.5 mmol/L; ARTERIAL BLOOD FIO2 2L; ARTERIAL BLOOD H2CO3 1.04 mmol/L (1.05-1.35); ARTERIAL BLOOD O2 SATURATION 94.9 % (94-98); ARTERIAL BLOOD PCO2 34.7 mmHg (35-45); ARTERIAL BLOOD PH 7.46 (7.35-7.45); ARTERIAL BLOOD PO2 69.4 mmHg (80-100)
[2018-04-23] MEDS ORDERED: PIPERACILLIN/TAZOBACTAM 3.375 GM VIAL IV PRN (17:05)
[2018-04-23 17:22] LABS: CREATINE KINASE MB 0.62 ng/mL (<4.55)
[2018-04-23 17:26] LABS: TROPONIN I 0.066 ng/mL
[2018-04-23] MEDS: NORMAL SALINE 1000 ML 1,000 ML IV PRN (18:24)
[2018-04-23] MEDS: PIPERACILLIN SODIUM/TAZOBACTAM 3.375 GM in NORMAL SALINE 100 ML IV SCH (18:24)
[2018-04-23] MEDS: PHENOBARBITAL 32.4 MG TABLET PO SCH (21:34)
[2018-04-23] MEDS: GABAPENTIN 300 MG CAPSULE PO SCH (21:34)
[2018-04-23] MEDS: SIMVASTATIN 10 MG TABLET PO SCH (21:35)
[2018-04-23] MEDS ORDERED: CEFEPIME 2 GM/D5W RTU 50 ML IV SCH (22:00)
[2018-04-23] MEDS ORDERED: PIPERACILLIN/TAZOBACTAM 3.375 GM VIAL IV ONE (22:57)
[2018-04-23] MEDS ORDERED: ACETAMINOPHEN 325 MG TABLET PO PRN (23:13)
[2018-04-24] MEDS: IPRATROPIUM/ALBUTEROL 0.5-2.5 MG/3 ML AMPUL NEB SCH ×7 (00:24→23:55)
[2018-04-24] MEDS: PIPERACILLIN SODIUM/TAZOBACTAM 3.375 GM in NORMAL SALINE 100 ML IV SCH ×4 (05:30→18:36)
[2018-04-24] MEDS: NORMAL SALINE 1000 ML 1,000 ML IV PRN ×2 (05:47→21:31)
[2018-04-24] MEDS: GABAPENTIN 300 MG CAPSULE PO SCH ×3 (06:13→21:31)
[2018-04-24 06:38] LABS: ABSOLUTE LYMPHOCYTES (AUTO) 1.2 10^3/uL (0.5-4.7); ABSOLUTE MONOCYTES (AUTO) 0.6 10^3/uL (0.1-1.4); ABSOLUTE NEUT (AUTO) 10.1 10^3/uL (1.7-8.2); BASOPHILS % (AUTO) 0.2 % (0-2); EOSINOPHILS % (AUTO) 0.1 % (0-6); HEMATOCRIT 37.2 % (37.9-51.0); LYMPHOCYTES % (AUTO) 10.1 % (13-45); MEAN CORPUSCULAR HEMOGLOBIN 28.3 pg (27.0-33.4); MEAN CORPUSCULAR HGB CONC 32.2 g/dL (32.0-36.0); MEAN CORPUSCULAR VOLUME 88 fl (80-97); MONOCYTES % (AUTO) 5.3 % (3-13); PLATELET COUNT 204 10^3/uL (150-450); RED BLOOD COUNT 4.23 10^6/uL (4.35-5.55); RED CELL DISTRIBUTION WIDTH 14.3 % (11.5-14.0); SEGMENTED NEUTROPHILS % (AUTO) 84.3 % (42-78); TOTAL CELLS COUNTED % (AUTO) 100 %
[2018-04-24 06:55] LABS: ALANINE AMINOTRANSFERASE 7 U/L (21-72); ALBUMIN 3.8 g/dL (3.5-5.0); ALKALINE PHOSPHATASE 118 U/L (38-126); ANION GAP 12 (5-19); ASPARTATE AMINO TRANSFERASE 16 U/L (17-59); BILIRUBIN,DIRECT 0.4 mg/dL (0.0-0.4); BILIRUBIN,TOTAL 0.8 mg/dL (0.2-1.3); BLOOD UREA NITROGEN 12 mg/dL (7-20); CARBON DIOXIDE 25 mmol/L (22-30); CHLORIDE 103 mmol/L (98-107); GLUCOSE 119 mg/dL (75-110); POTASSIUM 4.3 mmol/L (3.6-5.0); SODIUM 140.1 mmol/L (137-145); TOTAL PROTEIN 7.5 g/dL (6.3-8.2)
[2018-04-24] MEDS: ASPIRIN 81 MG TABLET, ENT COATED PO SCH (09:46)
[2018-04-24] MEDS: LISINOPRIL 10 MG TABLET PO SCH (09:46)
[2018-04-24] MEDS: PHENOBARBITAL 32.4 MG TABLET PO SCH ×2 (09:46→21:31)
[2018-04-24] MEDS: LEVOFLOXACIN 750 MG/D5W RTU 750 MG/150 ML RTUPB IV SCH (09:46)
[2018-04-24] MEDS: ENOXAPARIN SODIUM INJ 40 MG/0.4 ML DISP.SYRIN SUBCUT SCH (09:46)
--- NOTE | 2018-04-24 13:33 | PDOC PROGRESS REPORT ---
Subjective Progress Note for:: 04/24/18 Subjective:: Coughing with minimal sputum production. Breathing is getting better. No chest pain. No abdominal pain, nausea, or vomiting. No fever or chills. No seizure activity since admission. Reason For Visit: SEVERE BILATERAL PNEUMONIA,H/O SEIZURE,DILANTIN Physical Exam Vital Signs: Temp Pulse Resp BP Pulse Ox 98.1 F 66 16 128/59 H 96 04/24/18 03:11 04/24/18 11:28 04/24/18 11:28 04/24/18 03:11 04/24/18 11:28 Intake & Output 04/23/18 04/24/18 04/25/18 06:59 06:59 06:59 Intake Total 1350 Balance 1350 Weight 86.2 kg General appearance: PRESENT: no acute distress - Remain on supplememntal oxygen at 2L/min, well-developed, well-nourished Head exam: PRESENT: atraumatic, normocephalic Eye exam: PRESENT: conjunctiva pink, EOMI, PERRLA. ABSENT: scleral icterus Ear exam: PRESENT: normal external ear exam Mouth exam: PRESENT: moist, tongue midline Respiratory exam: PRESENT: crackles - right lung field improved with manual percussion manuver., decreased breath sounds Cardiovascular exam: PRESENT: RRR. ABSENT: diastolic murmur, rubs, systolic murmur Vascular exam: PRESENT: normal capillary refill. ABSENT: pallor GI/Abdominal exam: PRESENT: normal bowel sounds, soft. ABSENT: distended, guarding, mass, organolmegaly, rebound, tenderness Extremities exam: ABSENT: pedal edema Musculoskeletal exam: PRESENT: normal inspection Neurological exam: PRESENT: alert, awake, oriented to person, oriented to place , oriented to time, oriented to situation, CN II-XII grossly intact. ABSENT: motor sensory deficit Skin exam: PRESENT: dry, intact, warm. ABSENT: cyanosis, rash Results Laboratory Results: 04/24/18 06:00 04/24/18 06:00 04/23/18 04/24/18 04/24/18 16:04 06:00 06:00 WBC 12.0 H RBC 4.23 L Hgb 12.0 L Hct 37.2 L MCV 88 MCH 28.3 MCHC 32.2 RDW 14.3 H Plt Count 204 Seg Neutrophils % 84.3 H Lymphocytes % 10.1 L Monocytes % 5.3 Eosinophils % 0.1 Basophils % 0.2 Absolute Neutrophils 10.1 H Absolute Lymphocytes 1.2 Absolute Monocytes 0.6 Absolute Eosinophils 0.0 Absolute Basophils 0.0 Carbonic Acid 1.04 L HCO3/H2CO3 Ratio 23:1 ABG pH 7.46 H ABG pCO2 34.7 L ABG pO2 69.4 L ABG HCO3 24.0 ABG O2 Saturation 94.9 ABG Base Excess 0.5 FiO2 2L Sodium 140.1 Potassium 4.3 Chloride 103 Carbon Dioxide 25 Anion Gap 12 BUN 12 Creatinine 1.12 Est GFR ( Amer) > 60 Est GFR (Non-Af Amer) > 60 Glucose 119 H Calcium 9.0 Total Bilirubin 0.8 AST 16 L ALT 7 L Alkaline Phosphatase 118 Total Protein 7.5 Albumin 3.8 04/23/18 04/23/18 16:20 16:20 Creatine Kinase 93 CK-MB (CK-2) 0.62 Troponin I 0.066 NT-Pro-B Natriuret Pep 1040 H Impressions: Chest CT 04/23/18 00:00 IMPRESSION: Patchy bilateral airspace disease worrisome pneumonia. Chest X-Ray 04/23/18 06:53 IMPRESSION: RIGHT LOWER LOBE AIRSPACE DISEASE CONCERNING FOR PNEUMONIA. Assessment & Plan - Diagnosis (1) Altered mental status Qualifiers: Altered mental status type: unspecified Qualified Code(s): R41.82 - Altered mental status, unspecified Is this a current diagnosis for this admission?: Yes Plan: See attending physician orders. Improved mental status presently. (2) Acute hypoxemic respiratory failure Is this a current diagnosis for this admission?: Yes Plan: Improved on current supplemental oxygen. (3) Aspiration pneumonia Qualifiers: Aspiration pneumonia type: unspecified Laterality: bilateral Lung location: unspecified part of lung Qualified Code(s): J69.0 - Pneumonitis due to inhalation of food and vomit Is this a current diagnosis for this admission?: Yes Plan: Continue current antibiotic therapy. Follow up on CBC indices. Instructed on use of bedside Flutter and incentive spirometer for pulmonary rehabilitation and toileting. (4) Dilantin toxicity Qualifiers: Encounter type: initial encounter Injury intent: undetermined intent Qualified Code(s): T42.0X4A - Poisoning by hydantoin derivatives, undetermined, initial encounter Is this a current diagnosis for this admission?: Yes Plan: See attending physician orders. (5) Epilepsy Qualifiers: Epilepsy type: unspecified Intractability: not intractable Status epilepticus: without status epilepticus Qualified Code(s): G40.909 - Epilepsy , unspecified, not intractable, without status epilepticus Is this a current diagnosis for this admission?: Yes Plan: Continue current medication management. - Time Time Spent with patient: 25-34 minutes Medications reviewed and adjusted accordingly: Yes Anticipated discharge: Home Within: Other - Inpatient Certification Based on my medical assessment, after consideration of the patient's comorbidities, presenting symptoms, or acuity I expect that the services needed warrant INPATIENT care.: Yes I certify that my determination is in accordance with my understanding of Medicare's requirements for reasonable and necessary INPATIENT services [42 CFR 412.3e].: Yes Medical Necessity: Need Close Monitoring Due to Risk of Patient Decompensation, Need For IV Fluids, Need For Continuous Telemetry Monitoring, Need for IV Antibiotics, Risk of Complication if Not Cared For in Hospital Post Hospital Care: D/C Blow Down Operator Documentation - Plan Summary Plan Summary: See attending physician orders. Follow up on culture results.
[2018-04-24] MEDS: SIMVASTATIN 10 MG TABLET PO SCH (21:31)
[2018-04-25] MEDS: PIPERACILLIN SODIUM/TAZOBACTAM 3.375 GM in NORMAL SALINE 100 ML IV SCH ×4 (00:49→18:07)
[2018-04-25] MEDS: IPRATROPIUM/ALBUTEROL 0.5-2.5 MG/3 ML AMPUL NEB SCH ×5 (03:25→20:37)
[2018-04-25] MEDS: GABAPENTIN 300 MG CAPSULE PO SCH ×3 (05:09→21:38)
[2018-04-25] MEDS: NORMAL SALINE 1000 ML 1,000 ML IV PRN ×2 (06:18→18:08)
[2018-04-25 06:37] LABS: ABSOLUTE EOSINOPHILS # (AUTO) 0.1 10^3/uL (0.0-0.6); ABSOLUTE LYMPHOCYTES (AUTO) 1.3 10^3/uL (0.5-4.7); ABSOLUTE MONOCYTES (AUTO) 0.5 10^3/uL (0.1-1.4); ABSOLUTE NEUT (AUTO) 4.7 10^3/uL (1.7-8.2); BASOPHILS % (AUTO) 0.4 % (0-2); EOSINOPHILS % (AUTO) 1.2 % (0-6); HEMATOCRIT 32.9 % (37.9-51.0); HEMOGLOBIN 10.7 g/dL (13.5-17.0); LYMPHOCYTES % (AUTO) 19.8 % (13-45); MEAN CORPUSCULAR HEMOGLOBIN 28.3 pg (27.0-33.4); MEAN CORPUSCULAR HGB CONC 32.6 g/dL (32.0-36.0); MEAN CORPUSCULAR VOLUME 87 fl (80-97); MONOCYTES % (AUTO) 8.2 % (3-13); PLATELET COUNT 196 10^3/uL (150-450); RED BLOOD COUNT 3.79 10^6/uL (4.35-5.55); RED CELL DISTRIBUTION WIDTH 14.1 % (11.5-14.0); SEGMENTED NEUTROPHILS % (AUTO) 70.4 % (42-78); TOTAL CELLS COUNTED % (AUTO) 100 %; WHITE BLOOD COUNT 6.7 10^3/uL (4.0-10.5)
[2018-04-25 06:56] LABS: ALANINE AMINOTRANSFERASE 16 U/L (21-72); ALBUMIN 3.2 g/dL (3.5-5.0); ALKALINE PHOSPHATASE 97 U/L (38-126); ANION GAP 8 (5-19); ASPARTATE AMINO TRANSFERASE 15 U/L (17-59); BILIRUBIN,DIRECT 0.6 mg/dL (0.0-0.4); BILIRUBIN,TOTAL 0.6 mg/dL (0.2-1.3); BLOOD UREA NITROGEN 14 mg/dL (7-20); CALCIUM 8.5 mg/dL (8.4-10.2); CARBON DIOXIDE 24 mmol/L (22-30); CHLORIDE 108 mmol/L (98-107); GLUCOSE 107 mg/dL (75-110); POTASSIUM 4.3 mmol/L (3.6-5.0); SODIUM 140.2 mmol/L (137-145); TOTAL PROTEIN 6.6 g/dL (6.3-8.2)
[2018-04-25] MEDS: PHENYTOIN SODIUM EXTENDED 100 MG CAPSULE PO SCH ×3 (10:34→21:39)
[2018-04-25] MEDS: LEVOFLOXACIN 750 MG/D5W RTU 750 MG/150 ML RTUPB IV SCH (10:35)
[2018-04-25] MEDS: LISINOPRIL 10 MG TABLET PO SCH (10:35)
[2018-04-25] MEDS: ENOXAPARIN SODIUM INJ 40 MG/0.4 ML DISP.SYRIN SUBCUT SCH (10:35)
[2018-04-25] MEDS: PHENOBARBITAL 32.4 MG TABLET PO SCH ×2 (10:35→21:38)
[2018-04-25] MEDS: ASPIRIN 81 MG TABLET, ENT COATED PO SCH (10:35)
--- NOTE | 2018-04-25 19:23 | PDOC PROGRESS REPORT ---
Subjective Progress Note for:: 04/25/18 Subjective:: Patient reported improvement in his breathing and using bedside incentive spirometer and flutter devices. No chest pain. No abdominal pain, diarrhea, nausea, or vomiting. No fever or chills. Reason For Visit: SEVERE BILATERAL PNEUMONIA,H/O SEIZURE,DILANTIN Physical Exam Vital Signs: Temp Pulse Resp BP Pulse Ox 98.0 F 60 14 133/63 H 100 04/25/18 15:44 04/25/18 15:59 04/25/18 15:59 04/25/18 15:44 04/25/18 15:59 Intake & Output 04/24/18 04/25/18 04/26/18 06:59 06:59 06:59 Intake Total 1350 3737 1864 Output Total 1325 375 Balance 1350 2412 1489 Weight 86.2 kg 83.2 kg Physical Exam: General appearance: PRESENT: no acute distress Head exam: PRESENT: atraumatic, normocephalic Eye exam: PRESENT: conjunctiva pink, EOMI, PERRLA. ABSENT: scleral icterus Ear exam: PRESENT: normal external ear exam Mouth exam: PRESENT: moist, tongue midline Respiratory exam: PRESENT: crackles - right lung field improved with manual percussion manuver., decreased breath sounds Cardiovascular exam: PRESENT: RRR. ABSENT: diastolic murmur, rubs, systolic murmur Vascular exam: ABSENT: pallor GI/Abdominal exam: PRESENT: normal bowel sounds, soft. ABSENT: distended, guarding, mass, organomegaly, rebound, tenderness Extremities exam: ABSENT: pedal edema Musculoskeletal exam: PRESENT: normal inspection Neurological exam: PRESENT: alert, awake, oriented to person, oriented to place , oriented to time, oriented to situation, CN II-XII grossly intact. ABSENT: motor sensory deficit Skin exam: PRESENT: dry, intact, warm. ABSENT: cyanosis, rash Results Laboratory Results: 04/25/18 06:00 04/25/18 06:00 04/25/18 04/25/18 06:00 06:00 WBC 6.7 RBC 3.79 L Hgb 10.7 L Hct 32.9 L MCV 87 MCH 28.3 MCHC 32.6 RDW 14.1 H Plt Count 196 Seg Neutrophils % 70.4 Lymphocytes % 19.8 Monocytes % 8.2 Eosinophils % 1.2 Basophils % 0.4 Absolute Neutrophils 4.7 Absolute Lymphocytes 1.3 Absolute Monocytes 0.5 Absolute Eosinophils 0.1 Absolute Basophils 0.0 Sodium 140.2 Potassium 4.3 Chloride 108 H Carbon Dioxide 24 Anion Gap 8 BUN 14 Creatinine 1.00 Est GFR ( Amer) > 60 Est GFR (Non-Af Amer) > 60 Glucose 107 Calcium 8.5 Total Bilirubin 0.6 AST 15 L ALT 16 L Alkaline Phosphatase 97 Total Protein 6.6 Albumin 3.2 L 04/23/18 04/23/18 16:20 16:20 Creatine Kinase 93 CK-MB (CK-2) 0.62 Troponin I 0.066 NT-Pro-B Natriuret Pep 1040 H Impressions: Chest CT 04/23/18 00:00 IMPRESSION: Patchy bilateral airspace disease worrisome pneumonia. Chest X-Ray 04/23/18 06:53 IMPRESSION: RIGHT LOWER LOBE AIRSPACE DISEASE CONCERNING FOR PNEUMONIA. Assessment & Plan - Diagnosis (1) Altered mental status Qualifiers: Altered mental status type: unspecified Qualified Code(s): R41.82 - Altered mental status, unspecified Is this a current diagnosis for this admission?: Yes Plan: Improved. (2) Acute hypoxemic respiratory failure Is this a current diagnosis for this admission?: Yes (3) Aspiration pneumonia Qualifiers: Aspiration pneumonia type: unspecified Laterality: bilateral Lung location: unspecified part of lung Qualified Code(s): J69.0 - Pneumonitis due to inhalation of food and vomit Is this a current diagnosis for this admission?: Yes Plan: Continue IV antibiotic coverage. Decrease IV fluid rate to 75 mL/hr. Encouraged use of bedside devices. (4) Dilantin toxicity Qualifiers: Encounter type: initial encounter Injury intent: undetermined intent Qualified Code(s): T42.0X4A - Poisoning by hydantoin derivatives, undetermined, initial encounter Is this a current diagnosis for this admission?: Yes Plan: Resume therapy with lower daily total dosge to 300 mg at 100 mg q8 hours. (5) Epilepsy Qualifiers: Epilepsy type: unspecified Intractability: not intractable Status epilepticus: without status epilepticus Qualified Code(s): G40.909 - Epilepsy , unspecified, not intractable, without status epilepticus Is this a current diagnosis for this admission?: Yes Plan: See attending physician orders. - Time Time Spent with patient: 25-34 minutes Medications reviewed and adjusted accordingly: Yes Anticipated discharge: Home Within: Other - Inpatient Certification Based on my medical assessment, after consideration of the patient's comorbidities, presenting symptoms, or acuity I expect that the services needed warrant INPATIENT care.: Yes I certify that my determination is in accordance with my understanding of Medicare's requirements for reasonable and necessary INPATIENT services [42 CFR 412.3e].: Yes Medical Necessity: Need Close Monitoring Due to Risk of Patient Decompensation, Need For IV Fluids, Need For Continuous Telemetry Monitoring, Need for IV Antibiotics Post Hospital Care: D/C Bacteriologist Pharmaceutical Documentation - Plan Summary Plan Summary: See attending physician orders.
[2018-04-25] MEDS: SIMVASTATIN 10 MG TABLET PO SCH (21:38)
[2018-04-26] MEDS: IPRATROPIUM/ALBUTEROL 0.5-2.5 MG/3 ML AMPUL NEB SCH ×6 (00:15→20:10)
[2018-04-26] MEDS: PIPERACILLIN SODIUM/TAZOBACTAM 3.375 GM in NORMAL SALINE 100 ML IV SCH ×4 (01:06→17:37)
[2018-04-26] MEDS: GABAPENTIN 300 MG CAPSULE PO SCH ×3 (05:29→21:37)
[2018-04-26] MEDS: PHENYTOIN SODIUM EXTENDED 100 MG CAPSULE PO SCH ×3 (05:29→21:37)
[2018-04-26 06:14] LABS: ABSOLUTE EOSINOPHILS # (AUTO) 0.2 10^3/uL (0.0-0.6); ABSOLUTE LYMPHOCYTES (AUTO) 1.2 10^3/uL (0.5-4.7); ABSOLUTE MONOCYTES (AUTO) 0.5 10^3/uL (0.1-1.4); ABSOLUTE NEUT (AUTO) 3.4 10^3/uL (1.7-8.2); BASOPHILS % (AUTO) 0.4 % (0-2); HEMATOCRIT 33.7 % (37.9-51.0); HEMOGLOBIN 11.1 g/dL (13.5-17.0); LYMPHOCYTES % (AUTO) 23.3 % (13-45); MEAN CORPUSCULAR HEMOGLOBIN 28.3 pg (27.0-33.4); MEAN CORPUSCULAR HGB CONC 32.8 g/dL (32.0-36.0); MEAN CORPUSCULAR VOLUME 86 fl (80-97); MONOCYTES % (AUTO) 8.5 % (3-13); PLATELET COUNT 222 10^3/uL (150-450); RED CELL DISTRIBUTION WIDTH 14.3 % (11.5-14.0); SEGMENTED NEUTROPHILS % (AUTO) 63.8 % (42-78); TOTAL CELLS COUNTED % (AUTO) 100 %; WHITE BLOOD COUNT 5.3 10^3/uL (4.0-10.5)
[2018-04-26 06:40] LABS: ALANINE AMINOTRANSFERASE 21 U/L (21-72); ALBUMIN 3.1 g/dL (3.5-5.0); ALKALINE PHOSPHATASE 89 U/L (38-126); ANION GAP 8 (5-19); ASPARTATE AMINO TRANSFERASE 25 U/L (17-59); BILIRUBIN,DIRECT 0.5 mg/dL (0.0-0.4); BILIRUBIN,TOTAL 0.5 mg/dL (0.2-1.3); BLOOD UREA NITROGEN 12 mg/dL (7-20); CARBON DIOXIDE 24 mmol/L (22-30); CHLORIDE 107 mmol/L (98-107); GLUCOSE 106 mg/dL (75-110); POTASSIUM 4.1 mmol/L (3.6-5.0); SODIUM 139.2 mmol/L (137-145); TOTAL PROTEIN 6.5 g/dL (6.3-8.2)
[2018-04-26] MEDS: LISINOPRIL 10 MG TABLET PO SCH (09:22)
[2018-04-26] MEDS: ASPIRIN 81 MG TABLET, ENT COATED PO SCH (09:22)
[2018-04-26] MEDS: LEVOFLOXACIN 750 MG/D5W RTU 750 MG/150 ML RTUPB IV SCH (09:23)
[2018-04-26] MEDS: PHENOBARBITAL 32.4 MG TABLET PO SCH ×2 (09:23→21:37)
[2018-04-26] MEDS: ENOXAPARIN SODIUM INJ 40 MG/0.4 ML DISP.SYRIN SUBCUT SCH (09:23)
[2018-04-26] MEDS: NORMAL SALINE 1000 ML 1,000 ML IV PRN (09:25)
--- NOTE | 2018-04-26 19:51 | PDOC PROGRESS REPORT ---
Subjective Progress Note for:: 04/26/18 Subjective:: No chest pain or difficulty with breathing. No abdominal pain, diarrhea, nausea , or vomiting. No fever or chills. Reason For Visit: SEVERE BILATERAL PNEUMONIA,H/O SEIZURE,DILANTIN Physical Exam Vital Signs: Temp Pulse Resp BP Pulse Ox 98.4 F 66 16 134/70 H 97 04/26/18 14:53 04/26/18 16:06 04/26/18 16:06 04/26/18 14:53 04/26/18 16:06 Intake & Output 04/25/18 04/26/18 04/27/18 06:59 06:59 06:59 Intake Total 3737 2064 1272 Output Total 0190 553 4132 Balance 2412 1439 72 Weight 83.2 kg 91.1 kg Physical Exam: General appearance: PRESENT: no acute distress Head exam: PRESENT: atraumatic, normocephalic Eye exam: PRESENT: conjunctiva pink, EOMI, PERRLA. ABSENT: scleral icterus Ear exam: PRESENT: normal external ear exam Mouth exam: PRESENT: moist, tongue midline Respiratory exam: PRESENT: clear to auscultation, improved lower lung zone breath sounds Cardiovascular exam: PRESENT: RRR. ABSENT: diastolic murmur, rubs, systolic murmur Vascular exam: ABSENT: pallor GI/Abdominal exam: PRESENT: normal bowel sounds, soft. ABSENT: distended, guarding, mass, organomegaly, rebound, tenderness Extremities exam: ABSENT: pedal edema Musculoskeletal exam: PRESENT: normal inspection Neurological exam: PRESENT: alert, awake, oriented to person, oriented to place , oriented to time, oriented to situation, CN II-XII grossly intact. ABSENT: motor sensory deficit Skin exam: PRESENT: dry, intact, warm. ABSENT: cyanosis, rash Results Laboratory Results: 04/26/18 05:41 04/26/18 05:41 04/26/18 04/26/18 05:41 05:41 WBC 5.3 RBC 3.90 L Hgb 11.1 L Hct 33.7 L MCV 86 MCH 28.3 MCHC 32.8 RDW 14.3 H Plt Count 222 Seg Neutrophils % 63.8 Lymphocytes % 23.3 Monocytes % 8.5 Eosinophils % 4.0 Basophils % 0.4 Absolute Neutrophils 3.4 Absolute Lymphocytes 1.2 Absolute Monocytes 0.5 Absolute Eosinophils 0.2 Absolute Basophils 0.0 Sodium 139.2 Potassium 4.1 Chloride 107 Carbon Dioxide 24 Anion Gap 8 BUN 12 Creatinine 0.97 Est GFR ( Amer) > 60 Est GFR (Non-Af Amer) > 60 Glucose 106 Calcium 9.0 Total Bilirubin 0.5 AST 25 ALT 21 Alkaline Phosphatase 89 Total Protein 6.5 Albumin 3.1 L 04/25/18 18:15 Sputum Gram Stain - Final 04/25/18 18:15 Sputum Sputum Culture - Final Yeast, Not Maggie Albicans Normal Earline Absent 04/23/18 04/23/18 16:20 16:20 Creatine Kinase 93 CK-MB (CK-2) 0.62 Troponin I 0.066 NT-Pro-B Natriuret Pep 1040 H Impressions: Chest CT 04/23/18 00:00 IMPRESSION: Patchy bilateral airspace disease worrisome pneumonia. Chest X-Ray 04/23/18 06:53 IMPRESSION: RIGHT LOWER LOBE AIRSPACE DISEASE CONCERNING FOR PNEUMONIA. Assessment & Plan - Diagnosis (1) Aspiration pneumonia Qualifiers: Aspiration pneumonia type: unspecified Laterality: bilateral Lung location: unspecified part of lung Qualified Code(s): J69.0 - Pneumonitis due to inhalation of food and vomit Is this a current diagnosis for this admission?: Yes Plan: Continue IV antibiotic coverage. Encouraged intermittent use of bedside devices. (2) Altered mental status Qualifiers: Altered mental status type: unspecified Qualified Code(s): R41.82 - Altered mental status, unspecified Is this a current diagnosis for this admission?: Yes Plan: Resolved. (3) Acute hypoxemic respiratory failure Is this a current diagnosis for this admission?: Yes Plan: Resolved. (4) Dilantin toxicity Qualifiers: Encounter type: initial encounter Injury intent: undetermined intent Qualified Code(s): T42.0X4A - Poisoning by hydantoin derivatives, undetermined, initial encounter Is this a current diagnosis for this admission?: Yes Plan: Resolved. (5) Epilepsy Qualifiers: Epilepsy type: unspecified Intractability: not intractable Status epilepticus: without status epilepticus Qualified Code(s): G40.909 - Epilepsy , unspecified, not intractable, without status epilepticus Is this a current diagnosis for this admission?: Yes Plan: Maintain on Dilantin dosing at 100mg p.o tid and Phenobarbital therapy for seizure management. - Time Time Spent with patient: 25-34 minutes Medications reviewed and adjusted accordingly: Yes Anticipated discharge: Home Within: Other - Inpatient Certification Based on my medical assessment, after consideration of the patient's comorbidities, presenting symptoms, or acuity I expect that the services needed warrant INPATIENT care.: Yes I certify that my determination is in accordance with my understanding of Medicare's requirements for reasonable and necessary INPATIENT services [42 CFR 412.3e].: Yes Medical Necessity: Need Close Monitoring Due to Risk of Patient Decompensation, Need For IV Fluids, Need For Continuous Telemetry Monitoring, Need for IV Antibiotics, Risk of Complication if Not Cared For in Hospital Post Hospital Care: D/C Assistant Professor Of Education Documentation - Plan Summary Plan Summary: See attending physician orders.
[2018-04-26] MEDS: SIMVASTATIN 10 MG TABLET PO SCH (21:37)
[2018-04-27] MEDS: IPRATROPIUM/ALBUTEROL 0.5-2.5 MG/3 ML AMPUL NEB SCH ×4 (00:13→14:11)
[2018-04-27] MEDS: PIPERACILLIN SODIUM/TAZOBACTAM 3.375 GM in NORMAL SALINE 100 ML IV SCH ×4 (00:21→18:21)
[2018-04-27] MEDS: NORMAL SALINE 1000 ML 1,000 ML IV PRN ×2 (04:03→18:36)
[2018-04-27] MEDS: PHENYTOIN SODIUM EXTENDED 100 MG CAPSULE PO SCH ×3 (05:15→22:06)
[2018-04-27] MEDS: GABAPENTIN 300 MG CAPSULE PO SCH ×3 (05:15→22:05)
--- NOTE | 2018-04-27 08:57 | RADIOLOGY REPORT (SQ) ---
EXAM DESCRIPTION: CHEST 2 VIEWS COMPLETED DATE/TIME: 04/27/2018 8:33 am REASON FOR STUDY: Pneumonia COMPARISON: None. EXAM PARAMETERS: NUMBER OF VIEWS: two views TECHNIQUE: Digital Frontal and Lateral radiographic views of the chest acquired. RADIATION DOSE: NA LIMITATIONS: none FINDINGS: LUNGS AND PLEURA: Patchy fairly extensive airspace disease in the right perihilar region suggest pneumonic infiltrate. Small right pleural effusion. The left lung is stable in appearance. No pneumothorax. MEDIASTINUM AND HILAR STRUCTURES: No masses or contour abnormalities. HEART AND VASCULAR STRUCTURES: Heart normal size. No evidence for failure. BONES: No acute findings. HARDWARE: None in the chest. OTHER: No other significant finding. IMPRESSION: 1. Since the previous examination dated 11/04/2016, new fairly extensive right perihilar airspace disease suggest pneumonia. Small right pleural effusion. TECHNICAL DOCUMENTATION: JOB ID: [id number] [employer]- All Rights Reserved Reading location - IP/workstation name: [email or web address]
[2018-04-27] MEDS: PHENOBARBITAL 32.4 MG TABLET PO SCH ×2 (10:19→22:06)
[2018-04-27] MEDS: LISINOPRIL 10 MG TABLET PO SCH (10:19)
[2018-04-27] MEDS: LEVOFLOXACIN 750 MG/D5W RTU 750 MG/150 ML RTUPB IV SCH (10:20)
[2018-04-27] MEDS: ASPIRIN 81 MG TABLET, ENT COATED PO SCH (10:20)
[2018-04-27] MEDS: ENOXAPARIN SODIUM INJ 40 MG/0.4 ML DISP.SYRIN SUBCUT SCH (10:31)
[2018-04-27] MEDS ORDERED: IPRATROPIUM/ALBUTEROL 0.5-2.5 MG/3 ML AMPUL NEB PRN (12:21)
[2018-04-27] MEDS: IPRATROPIUM/ALBUTEROL 120 PUFF/4 GM MDI IH SCH (18:18)
--- NOTE | 2018-04-27 19:05 | PDOC PROGRESS REPORT ---
Subjective Progress Note for:: 04/27/18 Subjective:: No chest pain or difficulty with breathing. No seizure activity. No abdominal pain, diarrhea, nausea, or vomiting. No fever or chills. Reason For Visit: SEVERE BILATERAL PNEUMONIA,H/O SEIZURE,DILANTIN Physical Exam Vital Signs: Temp Pulse Resp BP Pulse Ox 98.5 F 63 16 133/73 H 97 04/27/18 15:06 04/27/18 15:06 04/27/18 15:06 04/27/18 15:06 04/27/18 15:06 Intake & Output 04/26/18 04/27/18 04/28/18 06:59 06:59 06:59 Intake Total 2064 2572 2585 Output Total 625 2225 1750 Balance 1439 347 835 Weight 91.1 kg 92.5 kg Physical Exam: General appearance: PRESENT: no acute distress Head exam: PRESENT: atraumatic, normocephalic Eye exam: PRESENT: conjunctiva pink, EOMI, PERRLA. ABSENT: scleral icterus Ear exam: PRESENT: normal external ear exam Mouth exam: PRESENT: moist, tongue midline Respiratory exam: PRESENT: clear to auscultation, improved lower lung zone breath sounds Cardiovascular exam: PRESENT: RRR. ABSENT: diastolic murmur, rubs, systolic murmur Vascular exam: ABSENT: pallor GI/Abdominal exam: PRESENT: normal bowel sounds, soft. ABSENT: distended, guarding, mass, organomegaly, rebound, tenderness Extremities exam: ABSENT: pedal edema Musculoskeletal exam: PRESENT: normal inspection Neurological exam: PRESENT: alert, awake, oriented to person, oriented to place , oriented to time, oriented to situation, CN II-XII grossly intact. ABSENT: motor sensory deficit Skin exam: PRESENT: dry, intact, warm. ABSENT: cyanosis, rash Results Laboratory Results: 04/26/18 05:41 04/26/18 05:41 04/25/18 18:15 Sputum Gram Stain - Final 04/25/18 18:15 Sputum Sputum Culture - Final Yeast, Not Maggie Albicans Normal Earline Absent 04/23/18 04/23/18 16:20 16:20 Creatine Kinase 93 CK-MB (CK-2) 0.62 Troponin I 0.066 NT-Pro-B Natriuret Pep 1040 H Impressions: Chest CT 04/23/18 00:00 IMPRESSION: Patchy bilateral airspace disease worrisome pneumonia. Chest X-Ray 04/27/18 08:00 IMPRESSION: 1. Since the previous examination dated 11/04/2016, new fairly extensive right perihilar airspace disease suggest pneumonia. Small right pleural effusion. Assessment & Plan - Diagnosis (1) Aspiration pneumonia Qualifiers: Aspiration pneumonia type: unspecified Laterality: bilateral Lung location: unspecified part of lung Qualified Code(s): J69.0 - Pneumonitis due to inhalation of food and vomit Is this a current diagnosis for this admission?: Yes (2) Altered mental status Qualifiers: Altered mental status type: unspecified Qualified Code(s): R41.82 - Altered mental status, unspecified Is this a current diagnosis for this admission?: Yes (3) Acute hypoxemic respiratory failure Is this a current diagnosis for this admission?: Yes (4) Dilantin toxicity Qualifiers: Encounter type: initial encounter Injury intent: undetermined intent Qualified Code(s): T42.0X4A - Poisoning by hydantoin derivatives, undetermined, initial encounter Is this a current diagnosis for this admission?: Yes (5) Epilepsy Qualifiers: Epilepsy type: unspecified Intractability: not intractable Status epilepticus: without status epilepticus Qualified Code(s): G40.909 - Epilepsy , unspecified, not intractable, without status epilepticus Is this a current diagnosis for this admission?: Yes - Time Time Spent with patient: 25-34 minutes Medications reviewed and adjusted accordingly: Yes Anticipated discharge: Home Within: Other - Inpatient Certification Based on my medical assessment, after consideration of the patient's comorbidities, presenting symptoms, or acuity I expect that the services needed warrant INPATIENT care.: Yes I certify that my determination is in accordance with my understanding of Medicare's requirements for reasonable and necessary INPATIENT services [42 CFR 412.3e].: Yes Medical Necessity: Need Close Monitoring Due to Risk of Patient Decompensation, Need For IV Fluids, Need For Continuous Telemetry Monitoring, Need for IV Antibiotics, Risk of Complication if Not Cared For in Hospital Post Hospital Care: D/C 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
[2018-04-27 19:50] LABS: ABSOLUTE EOSINOPHILS # (AUTO) 0.2 10^3/uL (0.0-0.6); ABSOLUTE LYMPHOCYTES (AUTO) 1.2 10^3/uL (0.5-4.7); ABSOLUTE MONOCYTES (AUTO) 0.5 10^3/uL (0.1-1.4); ABSOLUTE NEUT (AUTO) 2.6 10^3/uL (1.7-8.2); BASOPHILS % (AUTO) 0.9 % (0-2); EOSINOPHILS % (AUTO) 4.8 % (0-6); HEMATOCRIT 33.3 % (37.9-51.0); HEMOGLOBIN 10.8 g/dL (13.5-17.0); MEAN CORPUSCULAR HEMOGLOBIN 28.2 pg (27.0-33.4); MEAN CORPUSCULAR HGB CONC 32.4 g/dL (32.0-36.0); MEAN CORPUSCULAR VOLUME 87 fl (80-97); MONOCYTES % (AUTO) 10.8 % (3-13); PLATELET COUNT 254 10^3/uL (150-450); RED BLOOD COUNT 3.83 10^6/uL (4.35-5.55); RED CELL DISTRIBUTION WIDTH 13.9 % (11.5-14.0); SEGMENTED NEUTROPHILS % (AUTO) 56.5 % (42-78); TOTAL CELLS COUNTED % (AUTO) 100 %; WHITE BLOOD COUNT 4.6 10^3/uL (4.0-10.5)
[2018-04-27] MEDS: SIMVASTATIN 10 MG TABLET PO SCH (22:05)
[2018-04-28] MEDS: PIPERACILLIN SODIUM/TAZOBACTAM 3.375 GM in NORMAL SALINE 100 ML IV SCH ×3 (00:55→12:29)
[2018-04-28] MEDS: IPRATROPIUM/ALBUTEROL 120 PUFF/4 GM MDI IH SCH ×2 (06:02→12:42)
[2018-04-28] MEDS: PHENYTOIN SODIUM EXTENDED 100 MG CAPSULE PO SCH ×2 (06:06→14:24)
[2018-04-28] MEDS: GABAPENTIN 300 MG CAPSULE PO SCH ×2 (06:06→14:24)
[2018-04-28] MEDS: ASPIRIN 81 MG TABLET, ENT COATED PO SCH (09:47)
[2018-04-28] MEDS: LISINOPRIL 10 MG TABLET PO SCH (09:47)
[2018-04-28] MEDS: LEVOFLOXACIN 750 MG/D5W RTU 750 MG/150 ML RTUPB IV SCH (09:51)
[2018-04-28] MEDS: ENOXAPARIN SODIUM INJ 40 MG/0.4 ML DISP.SYRIN SUBCUT SCH (09:53)
[2018-04-28] MEDS: NORMAL SALINE 1000 ML 1,000 ML IV PRN (09:54)
[2018-04-28] MEDS: PHENOBARBITAL 32.4 MG TABLET PO SCH (09:58)
[2018-04-28 13:23] VITALS: BP 153/87
--- NOTE | 2018-04-28 16:16 | PDOC DISCHARGE SUMMARY ---
General - Admit/Disc Date/PCP Admission Date/Primary Care Provider: 04/23/18 11:36 BRAULIO DAKOTA Discharge Date: 04/28/18 - Discharge Diagnosis (1) Aspiration pneumonia Is this a current diagnosis for this admission?: Yes (2) Altered mental status Is this a current diagnosis for this admission?: Yes (3) Acute hypoxemic respiratory failure Is this a current diagnosis for this admission?: Yes (4) Dilantin toxicity Is this a current diagnosis for this admission?: Yes (5) Epilepsy Is this a current diagnosis for this admission?: Yes - Additional Information Discharge Diet: Cardiac Discharge Activity: Activity As Tolerated - No driving. Prescriptions: Levofloxacin 500 mg PO DAILY #7 tablet Phenytoin Sodium Extended [Dilantin 100 mg Capsule.er] 100 mg PO Q8 #90 capsule Home Medications: Aspirin [Ecotrin 81 mg EC Tablet] 81 mg PO DAILY 04/23/18 Gabapentin [Neurontin] 600 mg PO Q8 04/23/18 Lisinopril [Prinivil] 20 mg PO DAILY 04/23/18 Phenobarbital [Phenobarbital 32.4 mg Tablet] 32.4 mg PO Q12 04/23/18 Simvastatin [Zocor 20 mg Tablet] 20 mg PO QHS 04/23/18 Levofloxacin 500 mg PO DAILY #7 tablet 04/28/18 Phenytoin Sodium Extended [Dilantin 100 mg Capsule.er] 100 mg PO Q8 #90 capsule 04/28/18 History of Present Illness Patient complains of: Difficulty with breathing, Posible Seizure History of Present Illness: SEAN BECERRA is a 67 year old male, he has a history of seizure, on Dilantin, patient was brought to the emergency room by his spouse with EMS for evaluation of difficulty breathing, possible seizure poor response to verbal command. Patient spouse was worried, she thought the patient was having a seizure, he has a history of seizure disorder, in the emergency room he was evaluated, he was found to have elevated Dilantin level, the chest x-ray suggests pneumonia. I requested for CT scan of his lung without contrast, it demonstrated, debris or mucus in the right main stem bronchus, also found was patchy diffuse airspace disease in the right upper lobe, right lower lobe, left patchy disease in the superior segment lower lobe worrisome for pneumonia, this suggests aspiration pneumonia based on the CT scan findings. I saw him in the emergency room, he is awake and responsive to my questions, he denies any cough but he admitted to shortness of breath the oxygen saturation on 2 L nasal cannula is more than 90%. Hospital Course Hospital Course: He was management with IV Levofloxacin and Zosyn as well as supplemental oxygen. His Dilantin dosing was adjusted to 100 mg p.o q8 hours for total daily dosage of 300 mg down from 400 mg due to toxicity upon arrival in the ED. He had bedside Flutter and Incentive spirometry for pulmonary toileting effort due to aspiration. His subsequent chest X ray revealed right perihilar consolidation. His blood culture was no growth x 5 days. He had 5 days of IV antibiotic therapy. He remain afebrile with resolved leukocytosis and tolerating oral food intake. He will be discharged home today on continue oral antibiotic Levofloxacin 500 mg p.o daily x 5 days. He will follow up in the office as instructed upon discharge. Physical Exam Vital Signs: Temp Pulse Resp BP Pulse Ox 98.0 F 65 16 153/87 H 95 04/28/18 10:54 04/28/18 16:00 04/28/18 16:00 04/28/18 10:54 04/28/18 16:00 Intake & Output 04/27/18 04/28/18 04/29/18 06:59 06:59 06:59 Intake Total 2572 2885 1935 Output Total 2225 4325 975 Balance 347 -1440 960 Weight 92.5 kg 91.6 kg Physical Exam: General appearance: PRESENT: no acute distress Head exam: PRESENT: atraumatic, normocephalic Eye exam: PRESENT: conjunctiva pink, EOMI, PERRLA. ABSENT: scleral icterus Ear exam: PRESENT: normal external ear exam Mouth exam: PRESENT: moist, tongue midline Respiratory exam: PRESENT: clear to auscultation, improved lower lung zone breath sounds Cardiovascular exam: PRESENT: RRR. ABSENT: diastolic murmur, rubs, systolic murmur Vascular exam: ABSENT: pallor GI/Abdominal exam: PRESENT: normal bowel sounds, soft. ABSENT: distended, guarding, mass, organomegaly, rebound, tenderness Extremities exam: ABSENT: pedal edema Musculoskeletal exam: PRESENT: normal inspection Neurological exam: PRESENT: alert, awake, oriented to person, oriented to place , oriented to time, oriented to situation, CN II-XII grossly intact. ABSENT: motor sensory deficit Skin exam: PRESENT: dry, intact, warm. ABSENT: cyanosis, rash Results Laboratory Results: 04/27/18 19:41 04/26/18 05:41 04/27/18 19:41 WBC 4.6 RBC 3.83 L Hgb 10.8 L Hct 33.3 L MCV 87 MCH 28.2 MCHC 32.4 RDW 13.9 Plt Count 254 Seg Neutrophils % 56.5 Lymphocytes % 27.0 Monocytes % 10.8 Eosinophils % 4.8 Basophils % 0.9 Absolute Neutrophils 2.6 Absolute Lymphocytes 1.2 Absolute Monocytes 0.5 Absolute Eosinophils 0.2 Absolute Basophils 0.0 04/23/18 04/23/18 16:20 16:20 Creatine Kinase 93 CK-MB (CK-2) 0.62 Troponin I 0.066 NT-Pro-B Natriuret Pep 1040 H Impressions: Chest CT 04/23/18 00:00 IMPRESSION: Patchy bilateral airspace disease worrisome pneumonia. Chest X-Ray 04/27/18 08:00 IMPRESSION: 1. Since the previous examination dated 11/04/2016, new fairly extensive right perihilar airspace disease suggest pneumonia. Small right pleural effusion. Qualifiers - * PATIENT BEING DISCHARGED WITH ANY OF THE FOLLOWING DIAGNOSIS: No Plan Discharge Plan: Discharge home today. Follow up in the office as instructed upon discharge.
== END 2018-04-28 18:19 | disposition home or self-care (01) | DRG 177 ==
LOC: ER 05:53 → UNDOADMIN 11:36 → EH 11:36 → 3S 18:54
PROVIDERS: ADMIT Internal Medicine Geriatric Medicine; ATTEND Internal Medicine Geriatric Medicine
PROC: 3E0F73Z Introduction of Anti-inflammatory into Respiratory Tract, Via Natural or Artificial Opening (ICD-10-PCS; principal; 2018-04-23)
DX: J69.0 Pneumonitis due to inhalation of food and vomit (principal); J96.01 Acute respiratory failure with hypoxia; T42.0X5A Adverse effect of hydantoin derivatives, initial encounter; G40.909 Epilepsy, unspecified, not intractable, without status epilepticus; I10 Essential (primary) hypertension; E78.00 Pure hypercholesterolemia, unspecified; Z79.82 Long term (current) use of aspirin
CPT/HCPCS: 36415; 71045; 71046; 71250; 80053; 80184; 80185; 81001; 82550; 82553; 82803; 83036; 83605; 83880; 84484; 85025; 87040; 87070; 87086; 87205; 93005; 93010; 94640; 94667; 94799; 96360; 96361; 99291; J1650; J1956; J2543; J3490; J7620

== ENCOUNTER → 2018-08-11 | Outpatient (CLI) | payer MEDICARE, OTHER ==
--- NOTE | 2018-08-11 17:15 | RADIOLOGY REPORT (SQ) ---
EXAM DESCRIPTION: U/S SCROTUM W/O DOPPLER COMPLETED DATE/TIME: 08/11/2018 5:00 pm REASON FOR STUDY: N50.89 OTHER SPECIFIED DISORDERS OF THE MALE GENITAL ORGANS N50.89 OTHER SPECIFIE D DISORDERS OF THE MALE GENITAL ORGANS COMPARISON: None. TECHNIQUE: Static and realtime bonilla scale imaging of the scrotum and testes. Selected color Doppler and spectral images recorded to document blood flow. LIMITATIONS: None. FINDINGS: RIGHT: TESTICLE: Normal size, 3.6 x 1.9 x 2.1 cm. Normal echotexture. Normal blood flow. No mass. EPIDIDYMIS: 10 mm. Normal. HYDROCELE OR VARICOCELE: No. HERNIA OR EXTRA-TESTICULAR MASS: No. OTHER: No other significant finding. LEFT: TESTICLE: Normal size, 3.7 x 2.3 x 2.5 cm. . Normal echotexture. Normal blood flow. No mass. EPIDIDYMIS: Prominent, measures 17 mm. HYDROCELE OR VARICOCELE: Large septated hydrocele 9.3 x 6.7 x 5.9 cm. HERNIA OR EXTRA-TESTICULAR MASS: No. OTHER: No other significant finding. IMPRESSION: Large left hydrocele. Prominent epididymis, correlate for epididymitis. TECHNICAL DOCUMENTATION: JOB ID: [id number] [email or web address]- All Rights Reserved Reading location - IP/workstation name: [email or web address]
== END ==
LOC: RAD 17:46
PROVIDERS: ATTEND Internal Medicine Geriatric Medicine
DX: N43.3 Hydrocele, unspecified (principal); N45.1 Epididymitis
CPT/HCPCS: 76870

== ENCOUNTER 2018-09-19 22:06 | Emergency (ER) | payer MEDICARE, OTHER ==
--- NOTE | 2018-09-19 23:30 | ER Document Report ---
Addendum entered and electronically signed by RITESH ASHFORD PA-C 09/20/18 12:18: Course - Re-evaluation Re-evalutation: 09/20/18 12:17 Troponin resulted and has peaked, current level is 0.079. Also, Dilantin level was 9.8, just below normal range. Patient has not taken his Dilantin this morning in his usual doses 100 mg p.o. capsules 2 times per day. I am giving him Dilantin 100 mg p.o. 1 time prior to discharge. Patient does have a follow- up appointment at the end of the week. I suggested that they may need to reassess his medication regimen for his epilepsy. Patient is alert and oriented and understands the plan. Patient is stable for discharge. - Vital Signs Vital signs: Temp Pulse Resp BP Pulse Ox 98.1 F 56 L 15 158/79 H 100 09/20/18 06:00 09/20/18 02:00 09/20/18 12:01 09/20/18 12:01 09/20/18 12:01 - Laboratory Result Diagrams: 09/20/18 03:00 09/20/18 03:00 Laboratory results interpreted by me: 09/20/18 09/20/18 09/20/18 00:54 03:00 03:00 RBC 4.34 L Hgb 12.1 L Hct 37.0 L Potassium 5.3 H ALT 8 L Alkaline Phosphatase 134 H Urine Protein 30 H Urine Blood SMALL H Urine Urobilinogen 2.0 H Phenytoin 09/20/18 11:00 RBC Hgb Hct Potassium ALT Alkaline Phosphatase Urine Protein Urine Blood Urine Urobilinogen Phenytoin 9.8 L Addendum entered and electronically signed by RITESH ASHFORD PA-C 09/20/18 09:37: Course - Re-evaluation Re-evalutation: 09/20/18 09:36 Received patient from SUNI Gonsales, at sign out at 7 AM. When injuries mys elf to the patient. The repeat troponin did not peak and is slightly elevated at 0.104. I did discuss with patient and his that we wanted the troponin to peak prior to discharge. They are amenable to getting a repeat troponin at 10 AM. Also, was wondering why he had a seizure of this duration which is the longest she was ever seen. She is unclear if his serum Dilantin levels were adequate so I added a Dilantin. Patient is seen by Dr. Luciano and does have an appointment on Tuesday. Waiting for troponin. - Vital Signs Vital signs: Temp Pulse Resp BP Pulse Ox 98.1 F 56 L 15 130/75 H 100 09/20/18 06:00 09/20/18 02:00 09/20/18 07:01 09/20/18 07:01 09/20/18 07:01 - Laboratory Result Diagrams: 09/20/18 03:00 09/20/18 03:00 Laboratory results interpreted by me: 09/20/18 09/20/18 09/20/18 00:54 03:00 03:00 RBC 4.34 L Hgb 12.1 L Hct 37.0 L Potassium 5.3 H ALT 8 L Alkaline Phosphatase 134 H Urine Protein 30 H Urine Blood SMALL H Urine Urobilinogen 2.0 H Original Note: ED Seizure - General Stated Complaint: POSSIBLE SEIZURE Time Seen by Provider: 09/19/18 23:29 Primary Care Provider: BRAULIO DUNCAN MD [Primary Care Provider] - Follow up as needed Information source: Relative Cannot obtain history due to: Altered mental status Notes: HISTORY OF PRESENT ILLNESS: Patient is a 68-year-old male with a past medical history of seizure disorder secondary to surgical resection of intracerebral tumor "years ago" currently maintained on phenytoin who presents with recurrent seizure activity. Patient is unable to give information, therefore his at bedside is the primary source of history. Location: Global, generalized Onset: Sudden Provocation: None Quality: "Full body shaking" Radiation: None Severity: Moderate Timing: "Lasted for about 3-4 minutes" History of seizures: Yes, currently takes phenytoin Recent head injury: None Associated symptoms: Denies fevers or chills, no head injuries, no vision changes, no recent illnesses or sick contacts REVIEW OF SYSTEMS: CONSTITUTIONAL : Denies fever or chills, no sweats. Denies recent illness. EENT: Denies eye, ear, throat, or mouth pain or symptoms. Denies nasal or sinus congestion. CARDIOVASCULAR: Denies chest pain. RESPIRATORY: Denies cough, cold, or chest congestion. Denies shortness of breath, difficulty breathing, or wheezing. GASTROINTESTINAL: Denies abdominal pain. Denies nausea, vomiting, or diarrhea. Denies constipation. GENITOURINARY: Denies difficulty urinating, painful urination, burning, frequency, or blood in urine. MUSCULOSKELETAL: Denies body aches. Denies neck or back pain or joint pain or swelling. SKIN: Denies rash or skin lesions. HEMATOLOGIC : Denies easy bruising or bleeding. LYMPHATIC: Denies swollen, enlarged glands. NEUROLOGICAL: Positive for seizures. Denies altered mental status or loss of consciousness. Denies weakness or paralysis or loss of use of either side. Denies problems with gait or speech. Denies sensory or motor loss. PSYCHIATRIC: Denies anxiety or stress or depression. All other systems reviewed and negative. PHYSICAL EXAMINATION: GENERAL: Somnolent but arousable to sternal rub, no acute distress, protecting his airway. HEAD: Atraumatic, normocephalic. No scalp deformity, depression, or crepitance. EYES: Pupils are 1mm and equal/round/reactive to light, extraocular movements intact, sclera anicteric, conjunctiva are normal. ENT: Nares patent bilaterally, oropharynx clear without exudates or palatal petechia. Moist mucous membranes. No tonsil hypertrophy. NECK: Normal range of motion, supple without lymphadenopathy. LUNGS: Breath sounds present, equal, and clear to auscultation bilaterally. No wheezes, rales, or rhonchi. HEART: Regular rate and rhythm without murmurs, rubs, or gallops. 2+ peripheral pulses. Normal capillary refill. ABDOMEN: Soft, nontender, nondistended. Normoactive bowel sounds. No guarding, no rebound. No masses appreciated. BACK: Normal contour, no midline tenderness. Rectal exam deferred. EXTREMITIES: Normal range of motion, no pitting or edema. No cyanosis. NEUROLOGICAL: No focal neurological deficits. Cranial nerves III-XII grossly intact. Moves all extremities spontaneously. PSYCH: Normal mood, normal affect. No suicidal thoughts/ideations. No homicidal thoughts/ideations. No hallucinations. SKIN: Warm, dry, normal turgor, no rashes or lesions noted. ASSESSMENT AND PLAN: This patient is a 68-year-old male who presents with recurrent seizure activity. 1. Will obtain labs, urine, head CT, and reassess the patient. 2. Will continue to observe into the patient is alert and oriented to his baseline. TRAVEL OUTSIDE OF THE .S. IN LAST 30 DAYS: No - Related Data Allergies/Adverse Reactions: No Known Allergies Allergy (Verified 05/24/17 10:17) Past Medical History - General Information source: Relative Cannot obtain history due to: Altered mental status - Social History Smoking Status: Former Smoker Chew tobacco use (# tins/day): No Frequency of alcohol use: None Drug Abuse: None Lives with: Family Family History: Reviewed & Not Pertinent Patient has suicidal ideation: No Patient has homicidal ideation: No - Past Medical History Cardiac Medical History: Reports: Hx Hypercholesterolemia, Hx Hypertension Pulmonary Medical History: Reports: None EENT Medical History: Reports: None Neurological Medical History: Reports: Hx Seizures Endocrine Medical History: Reports: None Renal/ Medical History: Reports: None. Denies: Hx Peritoneal Dialysis Malignancy Medical History: Reports None GI Medical History: Reports: None Musculoskeletal Medical History: Reports None Skin Medical History: Reports None Psychiatric Medical History: Reports: None Denies: Hx Depression Traumatic Medical History: Reports: None Infectious Medical History: Reports: None Past Surgical History: Reports: Hx Neurologic Surgery - Brain tumor removal, Other - Brain tumor Fibrous Dysplasia resection - Immunizations Immunizations up to date: Yes Hx Diphtheria, Pertussis, Tetanus Vaccination: Yes Hx Pneumococcal Vaccination: 05/16/14 Physical Exam - Vital signs Vitals: Resp 18 09/19/18 22:09 Course - Re-evaluation Re-evalutation: 09/20/18 04:[address] is negative. Labs, including urinalysis with toxicology screen, or normal. Patient is improving but still slightly altered according to his . Of note, patient did have a mildly elevated troponin but below the acute [place] cutoff. Plan will be to continue to observe the patient and to have a repeat 4- hour troponin. - Vital Signs Vital signs: Temp Pulse Resp BP Pulse Ox 97.8 F 16 135/83 H 100 09/19/18 22:10 09/20/18 03:01 09/20/18 03:01 09/20/18 03:01 - Laboratory Result Diagrams: 09/20/18 03:00 09/20/18 03:00 Laboratory results interpreted by me: 09/20/18 09/20/18 09/20/18 00:54 03:00 03:00 RBC 4.34 L Hgb 12.1 L Hct 37.0 L Potassium 5.3 H ALT 8 L Alkaline Phosphatase 134 H Urine Protein 30 H Urine Blood SMALL H Urine Urobilinogen 2.0 H - Diagnostic Test Radiology reviewed: Image reviewed, Reports reviewed - EKG Interpretation by Me EKG shows normal: Sinus rhythm Rate: Normal Rhythm: NSR. No: SVT, Arrthymia, A.Fib, A.Flutter, with a 2:1 Block, V.Tach, Torsades, V. Fib, MAT, PVC's, APC's, Other [place]/QRS: No: Right axis deviation, Left axis deviation, RBBB, LBBB, IVCD, LAHB/LAFB, LPHB/LPFB, Bifasicular block Voltage: No: Increased voltage, Consistant with LVH, Decreased voltage, Throughout, Limb leads P Waves: No: ARBEN, LAE, Absent, AV Dissociation, Other Heart block present: No: 1st Degree, Mobitz 1, Mobitz 2, CHB (3rd degree block) When compared to previous EKG there are: Previous EKG unavailable - Transfer of Care Care transferred to following provider: Johnny Burgess Notes: 09/20/18 04:32 Signout given to SUNI Gonsales. The plan has been discussed. Plan is to repeat troponin at 7 AM and discharge the patient home if trending down and the patient is back to his baseline mental status. Discharge - Discharge Clinical Impression: Seizure disorder Condition: Good Disposition: HOME, SELF-CARE Instructions: Seizure, Known Epileptic ([facility]) Additional Instructions: You have been evaluated in the Emergency Department for having seizure activity. A CT scan of your head was normal, and you are now back to her baseline and safe to go home. Please follow-up with your primary physician as instructed in 1 week to be rechecked. Return to the Emergency Department if you experience confusion/disorientation, high fevers, difficulty walking, vision changes, or any other concerning symptoms. Referrals: BRAULIO DUNCAN MD [Primary Care Provider] - Follow up as needed Print Language: Georgian
[2018-09-20 01:55] LABS: AMORPHOUS SEDIMENT,URINE TRACE /HPF; APPEARANCE,URINE SLIGHTLY-CLOUDY; BILIRUBIN,URINE NEGATIVE (NEGATIVE); COLOR,URINE YELLOW; GLUCOSE, URINE NEGATIVE (NEGATIVE); KETONES,URINE NEGATIVE (NEGATIVE); LEUKOCYTE ESTERASE,URINE NEGATIVE (NEGATIVE); NITRITE,URINE NEGATIVE (NEGATIVE); PROTEIN,URINE 30 mg/dL (NEGATIVE); URINE SPECIFIC GRAVITY 1.014
[2018-09-20 02:28] LABS: URINE AMPHETAMINES SCREEN NEGATIVE; URINE BARBITURATES SCREEN UNCONFIRMED POSITIVE; URINE BENZODIAZEPINES SCREEN UNCONFIRMED POSITIVE; URINE COCAINE SCREEN NEGATIVE; URINE MARIJUANA (THC) SCREEN NEGATIVE; URINE METHADONE SCREEN NEGATIVE; URINE PHENCYCLIDINE SCREEN NEGATIVE
--- NOTE | 2018-09-20 02:29 | RADIOLOGY REPORT (SQ) ---
EXAM DESCRIPTION: CT HEAD WITHOUT IV CONTRAST COMPLETED DATE/TME: 09/20/2018 00:48 CLINICAL HISTORY: Seizure COMPARISON: 05/24/2017 TECHNIQUE: Axial CT of the head obtained from the skull apex to the skull base without contrast. FINDINGS: No acute intracranial hemorrhage identified. No mass, mass effect, shift of the midline, abnormal extra-axial fluid collection or CT evidence of acute ischemic change identified. The ventricular system and sulcal spaces have normal size and morphology. Scattered areas of hypodensity throughout the supratentorial white matter are nonspecific and may be related to chronic small vessel ischemic change. The visualized paranasal sinuses and the mastoids are clear. Remote left frontal craniotomy with orbital roof reconstruction and fat packing along the greater wing of the sphenoid is stable. No acute calvarial fractures identified. Visualized orbits and globes are unremarkable. Atherosclerotic calcification of the intracranial internal carotid arteries. DLP: 2181.90 mGy-cm IMPRESSION: 1. No acute intracranial abnormality by CT criteria. Stable postoperative change. This exam was performed according to our departmental dose-optimization program, which includes automated exposure control, adjustment of the mA and/or kV according to patient size and/or use of iterative reconstruction technique.
[2018-09-20 03:10] LABS: ABSOLUTE BASOPHILS # (AUTO) 0.1 10^3/uL (0.0-0.2); ABSOLUTE EOSINOPHILS # (AUTO) 0.1 10^3/uL (0.0-0.6); ABSOLUTE LYMPHOCYTES (AUTO) 1.6 10^3/uL (0.5-4.7); ABSOLUTE MONOCYTES (AUTO) 0.6 10^3/uL (0.1-1.4); ABSOLUTE NEUT (AUTO) 2.7 10^3/uL (1.7-8.2); BASOPHILS % (AUTO) 1.1 % (0-2); EOSINOPHILS % (AUTO) 1.9 % (0-6); HEMOGLOBIN 12.1 g/dL (13.5-17.0); LYMPHOCYTES % (AUTO) 31.4 % (13-45); MEAN CORPUSCULAR HEMOGLOBIN 27.8 pg (27.0-33.4); MEAN CORPUSCULAR HGB CONC 32.6 g/dL (32.0-36.0); MEAN CORPUSCULAR VOLUME 85 fl (80-97); MONOCYTES % (AUTO) 11.2 % (3-13); PLATELET COUNT 166 10^3/uL (150-450); RED BLOOD COUNT 4.34 10^6/uL (4.35-5.55); RED CELL DISTRIBUTION WIDTH 13.9 % (11.5-14.0); SEGMENTED NEUTROPHILS % (AUTO) 54.4 % (42-78); TOTAL CELLS COUNTED % (AUTO) 100 %
[2018-09-20 03:22] LABS: ALANINE AMINOTRANSFERASE 8 U/L (21-72); ALBUMIN 4.2 g/dL (3.5-5.0); ALKALINE PHOSPHATASE 134 U/L (38-126); ANION GAP 11 (5-19); ASPARTATE AMINO TRANSFERASE 21 U/L (17-59); BILIRUBIN,DIRECT 0.4 mg/dL (0.0-0.4); BILIRUBIN,TOTAL 0.5 mg/dL (0.2-1.3); BLOOD UREA NITROGEN 17 mg/dL (7-20); CALCIUM 9.1 mg/dL (8.4-10.2); CARBON DIOXIDE 26 mmol/L (22-30); CHLORIDE 105 mmol/L (98-107); CREATINE KINASE 72 U/L (55-170); GLUCOSE 102 mg/dL (75-110); POTASSIUM 5.3 mmol/L (3.6-5.0); SODIUM 141.5 mmol/L (137-145); TOTAL PROTEIN 7.7 g/dL (6.3-8.2)
[2018-09-20 03:24] LABS: ALCOHOL < 10 mg/dL (NONE DETECTED)
--- NOTE | 2018-09-20 07:57 | EKG REPORT ---
SEVERITY:- OTHERWISE NORMAL ECG - SINUS RHYTHM LEFT AXIS DEVIATION : Confirmed by: Jeromy Manzo MD 20-Sep-2018 07:55:27
[2018-09-20 12:04] VITALS: BP 158/79
[2018-09-20] MEDS ORDERED: PHENYTOIN SODIUM EXTENDED 100 MG CAPSULE PO ONE (12:16)
== END 2018-09-20 12:34 | disposition home or self-care (01) ==
LOC: ER 22:06
DX: G40.909 Epilepsy, unspecified, not intractable, without status epilepticus (principal); E78.00 Pure hypercholesterolemia, unspecified; I10 Essential (primary) hypertension
CPT/HCPCS: 93005; 99284; 36415; 80307 ×2; 82550; 80185; 85025; 80053; 81001; 84484; 83605; 70450; 93010; A9270

== ENCOUNTER 2019-08-23 03:24 | Emergency (ER) | payer MEDICARE ==
[2019-08-23] MEDS ORDERED: PHENYTOIN SODIUM INJ/PF 250 MG/5 ML SDV IV ONE (03:43)
[2019-08-23 03:57] LABS: ABSOLUTE BASOPHILS # (AUTO) 0.1 10^3/uL (0.0-0.2); ABSOLUTE EOSINOPHILS # (AUTO) 0.1 10^3/uL (0.0-0.6); ABSOLUTE LYMPHOCYTES (AUTO) 1.1 10^3/uL (0.5-4.7); ABSOLUTE MONOCYTES (AUTO) 0.3 10^3/uL (0.1-1.4); ABSOLUTE NEUT (AUTO) 4.5 10^3/uL (1.7-8.2); EOSINOPHILS % (AUTO) 2.1 % (0-6); HEMATOCRIT 35.9 % (37.9-51.0); HEMOGLOBIN 11.6 g/dL (13.5-17.0); MEAN CORPUSCULAR HGB CONC 32.4 g/dL (32.0-36.0); MEAN CORPUSCULAR VOLUME 86 fl (80-97); MONOCYTES % (AUTO) 5.3 % (3-13); PLATELET COUNT 367 10^3/uL (150-450); RED BLOOD COUNT 4.16 10^6/uL (4.35-5.55); RED CELL DISTRIBUTION WIDTH 14.3 % (11.5-14.0); SEGMENTED NEUTROPHILS % (AUTO) 73.6 % (42-78); TOTAL CELLS COUNTED % (AUTO) 100 %; WHITE BLOOD COUNT 6.1 10^3/uL (4.0-10.5)
--- NOTE | 2019-08-23 05:01 | ER Document Report ---
ED General - General Chief Complaint: Probable Seizure Stated Complaint: POSSIBLE SEIZURE Time Seen by Provider: 08/23/19 03:43 Primary Care Provider: BRAULIO DUNCAN MD [Primary Care Provider] - Follow up as needed TRAVEL OUTSIDE OF THE [place] IN LAST 30 DAYS: No - HPI Notes: 69-year-old male presenting after having multiple seizures at home. This man has a longstanding seizure disorder supposed to be taking Keppra. He was scheduled for colonoscopy this week and apparently misunderstood the instructions he was given in was under the impression that he was not allowed to take his Keppra. He has had none of the medicine in the last 3 days. 3 [id number] seizures tonight. Now postictal. No fever, vomiting or diarrhea. - Related Data Allergies/Adverse Reactions: No Known Allergies Allergy (Verified 09/20/18 11:33) Past Medical History - General Information source: Patient, Relative - Social History Smoking Status: Unknown if Ever Smoked Family History: Reviewed & Not Pertinent Patient has suicidal ideation: No Patient has homicidal ideation: No - Past Medical History Cardiac Medical History: Reports: Hx Hypercholesterolemia, Hx Hypertension Neurological Medical History: Reports: Hx Seizures Renal/ Medical History: Denies: Hx Peritoneal Dialysis Psychiatric Medical History: Denies: Hx Depression Past Surgical History: Reports: Hx Neurologic Surgery - Brain tumor removal, Other - Brain tumor Fibrous Dysplasia resection - Immunizations Immunizations up to date: Yes Hx Diphtheria, Pertussis, Tetanus Vaccination: Yes Hx Pneumococcal Vaccination: 05/16/14 Review of Systems - Review of Systems -: Yes ROS unobtainable due to patient's medical condition Physical Exam - Vital signs Vitals: Resp 28 H 08/23/19 03:27 - Notes Notes: GENERAL: Elderly male who is post ictal oriented only to his name at this point. SKIN: Good turgor no rashes. HEAD: Normocephalic atraumatic. EYES: PERRLA. EOMI. Conjunctivae and sclerae clear. EARS: CANALS AND TMS CLEAR. NOSE: CLEAR. MOUTH: Moist mucosa. Good dentition. No stridor or edema. No drooling. NECK: Supple. No masses or thyromegaly. No adenopathy. Carotids 2+ without bruits. No JVD. BACK: Symmetrical without tenderness. CHEST: Respirations unlabored. Breath sounds clear and symmetrical. HEART: Regular rhythm. No murmur gallop or rub. ABDOMEN: Soft nontender without masses, organomegaly or rebound. Bowel sounds normally active. No bruits. GENITALIA: Deferred. EXTREMITIES: No edema. No calf tenderness. Cap refill less than 1.5 seconds. Dorsalis pedis and posterior tibial pulses 3+ and symmetrical. NEUROLOGICAL: GCS 14. Postictal. Fluent speech. Cranial nerves II through XII intact. Sensorimotor and cerebellar normal. 2+ ankle clonus. Course - Re-evaluation Re-evalutation: 08/23/19 05:00 Patient is received IV Ativan. We will check some routine labs and I have given him Keppra 1 g IV. 08/23/19 06:26 Reevaluation patient at this time shows patient to be alert and oriented x3 and he is able to ambulate in the room. His labs here are unremarkable. He appears stable for discharge been instructed to restart his Keppra as previously prescribed and to avoid missing doses. - Vital Signs Vital signs: Temp Pulse Resp BP Pulse Ox 98.9 F 15 125/82 96 08/23/19 03:30 08/23/19 05:01 08/23/19 05:01 08/23/19 05:01 - Laboratory Result Diagrams: 08/23/19 03:37 08/23/19 05:25 Laboratory results interpreted by me: 08/23/19 08/23/19 03:37 05:25 RBC 4.16 L Hgb 11.6 L Hct 35.9 L RDW 14.3 H Potassium 5.1 H Direct Bilirubin 0.5 H Discharge - Discharge Clinical Impression: Seizure, Noncompliance Condition: Stable Disposition: HOME, SELF-CARE Additional Instructions: Restart your Keppra as previously prescribed and avoid missing doses. Return here as needed for new or worsening symptoms: Recurrence of seizures Pain that is worsening or unimproved Uncontrolled vomiting High fever or shaking chills Overall worsening Referrals: BRAULIO DUNCAN MD [Primary Care Provider] - Follow up as needed
[2019-08-23 05:53] LABS: ALBUMIN 3.8 g/dL (3.5-5.0); ALKALINE PHOSPHATASE 102 U/L (38-126); ANION GAP 12 (5-19); ASPARTATE AMINO TRANSFERASE 33 U/L (17-59); BILIRUBIN,DIRECT 0.5 mg/dL (0.0-0.4); BILIRUBIN,TOTAL 0.6 mg/dL (0.2-1.3); BLOOD UREA NITROGEN 13 mg/dL (7-20); CALCIUM 9.2 mg/dL (8.4-10.2); CARBON DIOXIDE 24 mmol/L (22-30); CHLORIDE 102 mmol/L (98-107); GLUCOSE 99 mg/dL (75-110); POTASSIUM 5.1 mmol/L (3.6-5.0); TOTAL PROTEIN 7.9 g/dL (6.3-8.2)
[2019-08-23 05:57] LABS: ALCOHOL < 10 mg/dL (NONE DETECTED)
[2019-08-23 06:41] VITALS: BP 130/86
== END 2019-08-23 07:05 | disposition home or self-care (01) ==
LOC: ER 03:24
DX: G40.909 Epilepsy, unspecified, not intractable, without status epilepticus (principal); T42.6X6A Underdosing of other antiepileptic and sedative-hypnotic drugs, initial encounter; Z91.138 Patient's unintentional underdosing of medication regimen for other reason; Z91.14 Patient's other noncompliance with medication regimen; I10 Essential (primary) hypertension
CPT/HCPCS: 99284; 96365; 36415; 80307; 85025; 80053; J1165

== ENCOUNTER 2020-04-11 12:36 | Emergency (ER) | payer MEDICARE, OTHER ==
[2020-04-11] MEDS ORDERED: ALBUTEROL SULFATE 0.083% NEB 2.5 MG/3 ML AMPUL NEB ONE ×2 (13:05→13:10)
[2020-04-11] MEDS ORDERED: METHYLPREDNISOLONE INJ 125 MG/2 ML SDV IV ONE (13:05)
[2020-04-11] MEDS: MAGNESIUM SULFATE/D5W 1 GM/100 ML RTUPB IV SCH ×4 (13:18→16:59)
--- NOTE | 2020-04-11 13:22 | RADIOLOGY REPORT (SQ) ---
EXAM DESCRIPTION: CHEST SINGLE VIEW IMAGES COMPLETED DATE/TIME: 04/11/2020 1:10 pm REASON FOR STUDY: sob COMPARISON: 04/27/2018 EXAM PARAMETERS: NUMBER OF VIEWS: One view. TECHNIQUE: Single frontal radiographic view of the chest acquired. RADIATION DOSE: NA LIMITATIONS: None. FINDINGS: LUNGS AND PLEURA: No opacities, masses or pneumothorax. No pleural effusion. MEDIASTINUM AND HILAR STRUCTURES: No masses. Contour normal. HEART AND VASCULAR STRUCTURES: Heart normal in size. Normal vasculature. BONES: No acute findings. HARDWARE: None in the chest. OTHER: No other significant finding. IMPRESSION: NO ACUTE RADIOGRAPHIC FINDING IN THE CHEST. TECHNICAL DOCUMENTATION: JOB ID: [id number] 2010 [employer]- All Rights Reserved Reading location - IP/workstation name: [email or web address]
[2020-04-11 13:56] LABS: ABSOLUTE EOSINOPHILS # (AUTO) 0.5 10^3/uL (0.0-0.6); ABSOLUTE LYMPHOCYTES (AUTO) 1.1 10^3/uL (0.5-4.7); ABSOLUTE MONOCYTES (AUTO) 0.5 10^3/uL (0.1-1.4); BASOPHILS % (AUTO) 0.3 % (0-2); EOSINOPHILS % (AUTO) 5.4 % (0-6); HEMOGLOBIN 13.3 g/dL (13.5-17.0); LYMPHOCYTES % (AUTO) 11.6 % (13-45); MEAN CORPUSCULAR HEMOGLOBIN 28.8 pg (27.0-33.4); MEAN CORPUSCULAR HGB CONC 32.4 g/dL (32.0-36.0); MEAN CORPUSCULAR VOLUME 89 fl (80-97); PLATELET COUNT 263 10^3/uL (150-450); RED BLOOD COUNT 4.62 10^6/uL (4.35-5.55); RED CELL DISTRIBUTION WIDTH 14.5 % (11.5-14.0); SEGMENTED NEUTROPHILS % (AUTO) 76.7 % (42-78); TOTAL CELLS COUNTED % (AUTO) 100 %; WHITE BLOOD COUNT 9.1 10^3/uL (4.0-10.5)
[2020-04-11 14:25] LABS: ALBUMIN 4.8 g/dL (3.5-5.0); ALKALINE PHOSPHATASE 175 U/L (38-126); ANION GAP 8 (5-19); ASPARTATE AMINO TRANSFERASE 27 U/L (17-59); BILIRUBIN,DIRECT 0.4 mg/dL (0.0-0.4); BILIRUBIN,TOTAL 0.4 mg/dL (0.2-1.3); BLOOD UREA NITROGEN 13 mg/dL (7-20); CALCIUM 9.7 mg/dL (8.4-10.2); CARBON DIOXIDE 32 mmol/L (22-30); CHLORIDE 103 mmol/L (98-107); CREATINE KINASE 76 U/L (55-170); GLUCOSE 108 mg/dL (75-110); POTASSIUM 5.2 mmol/L (3.6-5.0); TOTAL PROTEIN 9.3 g/dL (6.3-8.2)
--- NOTE | 2020-04-11 14:32 | ER Document Report ---
Entered by DOMINGO RUIZ SCRIBE 04/11/20 1310 Acting as scribe for:GUS FERRER MD ED Respiratory Problem - General Chief Complaint: Breathing Difficulty Stated Complaint: SHORTNESS OF BREATH Primary Care Provider: BRAULIO DUNCAN MD [Primary Care Provider] - Follow up as needed Mode of Arrival: Wheelchair Information source: Patient Notes: This 69 year old male patient with a history of COPD and asthma presents to the ED today with complaints of shortness of breath for the past x2 days, worse this afternoon. Patient reports associated nonproductive cough and wheezing. He states that he has been using his inhaler without relief. Denies chest pain. TRAVEL OUTSIDE OF THE [place] IN LAST 30 DAYS: No - Related Data Allergies/Adverse Reactions: No Known Allergies Allergy (Verified 09/20/18 11:33) Past Medical History - General Information source: Patient, [facility] Records - Social History Smoking Status: Unknown if Ever Smoked Smoking Education Provided: No Frequency of alcohol use: None Drug Abuse: None Family History: Reviewed & Not Pertinent Patient has suicidal ideation: No Patient has homicidal ideation: No - Past Medical History Cardiac Medical History: Reports: Hx Hypercholesterolemia, Hx Hypertension Pulmonary Medical History: Reports: Hx Asthma, Hx COPD Neurological Medical History: Reports: Hx Seizures Past Surgical History: Reports: Hx Neurologic Surgery - Brain tumor removal, Hx Orthopedic Surgery - Fibrous Dysplasia resection - Immunizations Immunizations up to date: Yes Hx Diphtheria, Pertussis, Tetanus Vaccination: Yes Hx Pneumococcal Vaccination: 05/16/14 Review of Systems - Review of Systems Constitutional: No symptoms reported EENT: No symptoms reported Cardiovascular: See HPI. denies: Chest pain Respiratory: See HPI, Cough, Short of breath, Wheezing Gastrointestinal: No symptoms reported Genitourinary: No symptoms reported Male Genitourinary: No symptoms reported Musculoskeletal: No symptoms reported Skin: No symptoms reported Hematologic/Lymphatic: No symptoms reported Neurological/Psychological: No symptoms reported -: Yes All other systems reviewed and negative Physical Exam - Vital signs Vitals: Temp Pulse Resp BP Pulse Ox 97.7 F 85 32 H 141/82 H 97 04/11/20 12:44 04/11/20 12:44 04/11/20 12:44 04/11/20 12:44 04/11/20 12:44 - General General appearance: Alert In distress: None - HEENT Head: Normocephalic, Atraumatic Eyes: Normal Extraocular movements intact: Yes Pupils: PERRL - Respiratory Respiratory status: No respiratory distress Chest status: Nontender Breath sounds: Wheezing Chest palpation: Normal - Cardiovascular Rhythm: Regular Heart sounds: Normal auscultation, S1 appreciated, S2 appreciated Murmur: No Friction rub: No Gallop: None auscultated - Abdominal Inspection: Normal Distension: No distension Bowel sounds: Normal Tenderness: Nontender - Abdomen soft Organomegaly: No organomegaly - Back Back: Normal, Nontender - Extremities General upper extremity: Normal inspection General lower extremity: Normal inspection. No: Edema - Neurological Neuro grossly intact: Yes Orientation: AAOx4 Raquel Coma Scale Eye Opening: Spontaneous Raquel Coma Scale Verbal: Oriented Raquel Coma Scale Motor: Obeys Commands Wharton Coma Scale Total: 15 - Psychological Associated symptoms: Normal affect, Normal mood - Skin Skin Temperature: Warm Skin Moisture: Dry Skin Color: Normal Course - Re-evaluation Re-evalutation: 04/11/20 17:42 Patient resting comfortably at this time not showing any signs of distress no audible wheezing at bedside. Patient denies any chest pain or shortness of breath at this time. 04/11/20 18:[address] Tubbs T on-call leasing coordinator reported the patient's history and the EKG with no acute changes with no chest pain whatsoever and a mild troponin leak in the indeterminate regions. Dr. Tubbs recommended that he does not believe that this is related to an acute coronary syndrome. Plan is to discharge patient home and have follow-up with Dr. Tubbs leasing coordinator on Tuesday. - Vital Signs Vital signs: Temp Pulse Resp BP Pulse Ox 97.7 F 85 22 H 126/83 H 97 04/11/20 12:44 04/11/20 12:44 04/11/20 13:53 04/11/20 13:53 04/11/20 13:00 04/11/20 17:42 Vital signs stable 97% on room air at this time respirations are 12 currently. - Laboratory Result Diagrams: 04/11/20 13:21 04/11/20 13:21 Laboratory results interpreted by me: 04/11/20 04/11/20 13:21 13:21 Hgb 13.3 L RDW 14.5 H Lymph % (Auto) 11.6 L Potassium 5.2 H Carbon Dioxide 32 H Alkaline Phosphatase 175 H Total Protein 9.3 H Laboratories are mildly unremarkable potassium of 5.2 total protein 9.3 alk phos 175 and CO2 32. Hemoglobin is 13. Patient has troponin x2 that shows mild elevation; first troponin shows value 0.113; second troponin is 0.167. Patient has no complaints of chest pain shortness of breath nausea vomiting or any chest pressure. 04/11/20 17:44 - Diagnostic Test Radiology reviewed: Image reviewed, Reports reviewed Radiology results interpreted by me: 04/11/20 17:45 Chest x-ray shows no acute process. - EKG Interpretation by Me Additional EKG results interpreted by me: 04/11/20 17:46 Twelve-lead EKG shows a normal sinus rhythm rate of 58 sinus bradycardia. Left axis deviation no acute ST-T wave changes. 04/11/20 18:07 Second twelve-lead EKG shows a normal sinus rhythm rate of 69 with a left axis deviation again no acute ST-T wave changes. Discharge - Discharge Clinical Impression: COPD exacerbation Condition: Stable Disposition: HOME, SELF-CARE Additional Instructions: Chronic Obstructive Lung Disease You have chronic obstructive lung disease (COPD). The symptoms come from emphysema (damage to small airways, with trapping of air in large sacks in the lung) and chronic bronchitis (repeated infection and damage to larger airways). The cause is almost always cigarette smoking, although dust exposure, asthma, and infections contribute. You should avoid fumes, dust, and smoke (especially tobacco smoke). Your condition will flare from time to time. There is no cure, but the symptoms can be treated. Bronchodilators (asthma medicine) are often helpful. Antibiotics help when infection is present. When shortness of breath is severe, we may prescribe cortisone medication. If medicine doesn't help enough, we can arrange for you to have an oxygen tank at home. Notify your doctor at once if sputum becomes thick, foul, or bloody, if you develop a fever or chest pain, or if your shortness of breath worsens. Prescriptions: Prednisone [Deltasone 20 mg Tablet] 20 mg PO BID #10 tablet Referrals: BRAULIO DUNCAN MD [Primary Care Provider] - Follow up as needed CALVIN TUBBS MD [ACTIVE STAFF] - 04/14/20 10:00 am I personally performed the services described in the documentation, reviewed and edited the documentation which was dictated to the scribe in my presence, and it accurately records my words and actions.
[2020-04-11] MEDS ORDERED: IPRATROPIUM/ALBUTEROL 0.5-2.5 MG/3 ML AMPUL NEB ONE (14:51)
[2020-04-11 14:56] LABS: CREATINE KINASE MB 1.73 ng/mL (<4.55)
[2020-04-11 14:59] LABS: TROPONIN I 0.113 ng/mL
--- NOTE | 2020-04-11 16:55 | EKG REPORT ---
SEVERITY:- ABNORMAL ECG - SINUS RHYTHM LEFT AXIS DEVIATION CONSIDER POSTERIOR INFARCT : Confirmed by: Matt Medina MD 11-Apr-2020 16:54:55
[2020-04-11 18:32] VITALS: BP 142/128
--- NOTE | 2020-04-14 02:51 | EKG REPORT ---
SEVERITY:- OTHERWISE NORMAL ECG - SINUS RHYTHM LEFT AXIS DEVIATION : Confirmed by: Matt Medina MD 14-Apr-2020 02:50:22
== END 2020-04-11 18:10 | disposition home or self-care (01) ==
LOC: ER 12:36
DX: J44.1 Chronic obstructive pulmonary disease with (acute) exacerbation (principal); R06.02 Shortness of breath; R05 Cough; I10 Essential (primary) hypertension; Z79.899 Other long term (current) drug therapy; Z20.828 Contact with and (suspected) exposure to other viral communicable diseases
CPT/HCPCS: 93005; 94640; 99285; 96375; 96365; 96366; 36415; 82553; 82550; 85025; 80053; 84484; 71045; 93010; U0003; J2930; J3475; C9803; 87635; J7613

== ENCOUNTER 2020-04-26 07:31 | Inpatient (IN) | payer MEDICARE, OTHER ==
[2020-04-26] MEDS ORDERED: IPRATROPIUM/ALBUTEROL 0.5-2.5 MG/3 ML AMPUL NEB ONE (07:57)
[2020-04-26] MEDS ORDERED: METHYLPREDNISOLONE INJ 125 MG/2 ML SDV IV ONE (07:57)
--- NOTE | 2020-04-26 08:05 | ER Document Report ---
ED General - General Stated Complaint: DIFFICULTY BREATHING Time Seen by Provider: 04/26/20 07:38 Primary Care Provider: CLAVIN TUBBS MD [ACTIVE STAFF] - Follow up as needed TRAVEL OUTSIDE OF THE [place] IN LAST 30 DAYS: No - HPI Notes: Chief complaint: Shortness of breath History of present illness: Mr. Monterroso is a 69-year-old male former smoker with a longstanding history of COPD now presenting with a 3-day history of increasing cough and dyspnea. Producing scant amounts of white sputum. No hemoptysis. No chest pain. No fever or chills. No vomiting. Patient denies any known exposure to COVID. He says he is not been previously tested for COVID. He denies travel outside the area. He was treated here fairly recently for an acute bronchitis and received burst therapy with prednisone at that time and was treated with metered-dose inhalers but is no longer using these. He does not use oxygen at home and does not have a home nebulizer at this time. Primary care provider is Dr. Brooks. - Related Data Allergies/Adverse Reactions: No Known Allergies Allergy (Verified 04/26/20 08:22) Past Medical History - General Information source: Patient, ON LICENSE OF [facility] Records - Social History Smoking Status: Former Smoker Frequency of alcohol use: None Drug Abuse: None Family History: Reviewed & Not Pertinent - Past Medical History Cardiac Medical History: Reports: Hx Hypercholesterolemia, Hx Hypertension Pulmonary Medical History: Reports: Hx Asthma, Hx COPD Neurological Medical History: Reports: Hx Seizures Endocrine Medical History: Denies: Hx Diabetes Mellitus Type 1, Hx Diabetes Mellitus Type 2 Renal/ Medical History: Denies: Hx Peritoneal Dialysis Psychiatric Medical History: Reports: Hx Schizophrenia Denies: Hx Depression Past Surgical History: Reports: Hx Neurologic Surgery - Brain tumor removal, Hx Orthopedic Surgery - Fibrous Dysplasia resection, Other - Brain tumor Fibrous Dysplasia resection - Immunizations Immunizations up to date: Yes Hx Diphtheria, Pertussis, Tetanus Vaccination: Yes Hx Pneumococcal Vaccination: 05/16/14 Review of Systems - Review of Systems Notes: Constitutional: Negative for fever. HENT: Negative for sore throat. Eyes: Negative for visual changes. Cardiovascular: Negative for chest pain. Respiratory: As per HPI. Gastrointestinal: Negative for abdominal pain, vomiting or diarrhea. Genitourinary: Negative for dysuria. Musculoskeletal: Negative for back pain. Skin: Negative for rash. Neurological: Negative for headaches, weakness or numbness. 10 point ROS negative except as marked above and in HPI. Physical Exam - Vital signs Vitals: Pulse Ox 100 04/26/20 07:38 - Notes Notes: GENERAL: Slender male approximately stated age very in moderate respiratory distress. SKIN: Mildly diaphoretic. Good turgor no rashes. HEAD: Normocephalic atraumatic. EYES: PERRLA. EOMI. Conjunctivae and sclerae clear. EARS: CANALS AND TMS CLEAR. NOSE: CLEAR. MOUTH: Moist mucosa. Good dentition. No stridor or edema. No drooling. NECK: Supple. No masses or thyromegaly. No adenopathy. Carotids 2+ without bruits. No JVD. BACK: Symmetrical without tenderness. CHEST: Respirations are moderately labored. Patient is tachypneic. Mild use of accessory muscles. Diffuse rhonchi and end expiratory wheezes bilaterally. Deep rattling cough. Patient was noted to have an O2 saturation on room air of 88% at triage. He is currently on a nonrebreather and now has a 100% O2 sat by pulse ox. HEART: Regular rhythm. No murmur gallop or rub. ABDOMEN: Soft nontender without masses, organomegaly or rebound. Bowel sounds normally active. No bruits. GENITALIA: Deferred. EXTREMITIES: No edema. No calf tenderness. Cap refill less than 1.5 seconds. Dorsalis pedis and posterior tibial pulses 3+ and symmetrical. NEUROLOGICAL: GCS 15. Alert and oriented x3. Normal gait. Fluent speech. Cranial nerves II through XII intact. Sensorimotor and cerebellar normal. N ormal tone. PSYCHIATRIC: Slightly anxious affect. Course - Re-evaluation Re-evalutation: 04/26/20 13:20 Patient initially required 100% oxygen when he arrived. He was weaned off this down to 2 L. He was given IV magnesium, IV Solu-Medrol and multiple DuoNeb treatments. His chest x-ray shows no infiltrates. He did not have a fever and did not have elevation of white count. COVID-19 nasal swab is pending. Patient has some persistent wheezes on examination although his respiratory distress has resolved. I have discussed findings with Dr. Luciano on-call for Dr. Brooks and he will admit patient to the medical floor. - Vital Signs Vital signs: Temp Pulse Resp BP Pulse Ox 97.9 F 18 124/79 100 04/26/20 09:36 04/26/20 13:01 04/26/20 13:01 04/26/20 13:01 - Laboratory Result Diagrams: 04/26/20 07:49 04/26/20 07:49 Laboratory results interpreted by me: 04/26/20 04/26/20 04/26/20 07:49 07:49 07:49 RDW 14.5 H Eos % (Auto) 13.2 H Absolute Eos (auto) 0.8 H Carbonic Acid ABG pH ABG pCO2 ABG pO2 ABG HCO3 ABG Total CO2 ABG O2 Saturation Glucose 125 H Direct Bilirubin 0.5 H Alkaline Phosphatase 188 H NT-Pro-B Natriuret Pep 166 H Total Protein 9.6 H Urine Protein Urine Blood Urine Ascorbic Acid 04/26/20 04/26/20 08:17 09:33 RDW Eos % (Auto) Absolute Eos (auto) Carbonic Acid 1.84 H ABG pH 7.31 L ABG pCO2 61.2 H ABG pO2 174.8 H ABG HCO3 30.2 H ABG Total CO2 32.1 H ABG O2 Saturation 99.0 H Glucose Direct Bilirubin Alkaline Phosphatase NT-Pro-B Natriuret Pep Total Protein Urine Protein 100 H Urine Blood MODERATE H Urine Ascorbic Acid 40 H - Diagnostic Test Radiology reviewed: Reports reviewed - Per radiologist: Portable chest x-ray normal. - EKG Interpretation by Me Additional EKG results interpreted by me: 04/26/20 08:05 Twelve-lead EKG reviewed by me contemporaneously: 0757 hrs. Indication for study: Dyspnea Rhythm: Normal sinus Rate: 72 Intervals: Normal QRS axis: -[address]/T wave changes: None Comparison with prior tracing: Unchanged since prior tracing 04/11/2020 Interpretation: Normal sinus rhythm with left axis deviation Discharge - Discharge Clinical Impression: COPD exacerbation Condition: Good Disposition: ADMITTED INPATIENT Admitting Provider: [facility] Admitted: Medical Floor Referrals: CALVIN TUBBS MD [ACTIVE STAFF] - Follow up as needed
[2020-04-26] MEDS: MAGNESIUM SULFATE/D5W 1 GM/100 ML RTUPB IV SCH ×2 (08:07→08:53)
[2020-04-26 08:14] LABS: ABSOLUTE EOSINOPHILS # (AUTO) 0.8 10^3/uL (0.0-0.6); ABSOLUTE LYMPHOCYTES (AUTO) 1.4 10^3/uL (0.5-4.7); ABSOLUTE MONOCYTES (AUTO) 0.5 10^3/uL (0.1-1.4); BASOPHILS % (AUTO) 0.6 % (0-2); EOSINOPHILS % (AUTO) 13.2 % (0-6); HEMATOCRIT 41.4 % (37.9-51.0); HEMOGLOBIN 13.6 g/dL (13.5-17.0); LYMPHOCYTES % (AUTO) 24.8 % (13-45); MEAN CORPUSCULAR HEMOGLOBIN 29.6 pg (27.0-33.4); MEAN CORPUSCULAR HGB CONC 32.9 g/dL (32.0-36.0); MEAN CORPUSCULAR VOLUME 90 fl (80-97); MONOCYTES % (AUTO) 9.2 % (3-13); PLATELET COUNT 240 10^3/uL (150-450); RED CELL DISTRIBUTION WIDTH 14.5 % (11.5-14.0); SEGMENTED NEUTROPHILS % (AUTO) 52.2 % (42-78); TOTAL CELLS COUNTED % (AUTO) 100 %; WHITE BLOOD COUNT 5.7 10^3/uL (4.0-10.5)
--- NOTE | 2020-04-26 08:15 | RADIOLOGY REPORT (SQ) ---
EXAM DESCRIPTION: CHEST SINGLE VIEW IMAGES COMPLETED DATE/TIME: 04/26/2020 8:07 am REASON FOR STUDY: sob COMPARISON: 04/11/2020. EXAM PARAMETERS: NUMBER OF VIEWS: One view. TECHNIQUE: Single frontal radiographic view of the chest acquired. RADIATION DOSE: NA LIMITATIONS: None. FINDINGS: LUNGS AND PLEURA: No opacities, masses or pneumothorax. No pleural effusion. MEDIASTINUM AND HILAR STRUCTURES: No masses. Contour normal. HEART AND VASCULAR STRUCTURES: Heart normal in size. Normal vasculature. BONES: No acute findings. HARDWARE: None in the chest. OTHER: No other significant finding. IMPRESSION: NO ACUTE RADIOGRAPHIC FINDING IN THE CHEST. TECHNICAL DOCUMENTATION: JOB ID: [id number] 2010 [employer]- All Rights Reserved Reading location - IP/workstation name: [email or web address]
[2020-04-26 08:30] LABS: ALKALINE PHOSPHATASE 188 U/L (38-126); ANION GAP 13 (5-19); ASPARTATE AMINO TRANSFERASE 26 U/L (17-59); BILIRUBIN,DIRECT 0.5 mg/dL (0.0-0.4); BILIRUBIN,TOTAL 0.6 mg/dL (0.2-1.3); BLOOD UREA NITROGEN 12 mg/dL (7-20); CALCIUM 10.1 mg/dL (8.4-10.2); CARBON DIOXIDE 29 mmol/L (22-30); CHLORIDE 102 mmol/L (98-107); GLUCOSE 125 mg/dL (75-110); POTASSIUM 4.8 mmol/L (3.6-5.0); TOTAL PROTEIN 9.6 g/dL (6.3-8.2)
[2020-04-26 08:32] LABS: ARTERIAL BLOOD BASE EXCESS 2.4 mmol/L; ARTERIAL BLOOD H2CO3 1.84 mmol/L (1.05-1.35); ARTERIAL BLOOD HCO3 30.2 mmol/L (20-24); ARTERIAL BLOOD PCO2 61.2 mmHg (35-45); ARTERIAL BLOOD PH 7.31 (7.35-7.45); ARTERIAL BLOOD PO2 174.8 mmHg (80-100); ARTERIAL BLOOD TOTAL CO2 32.1 mmol/L (23-27)
[2020-04-26 08:33] LABS: ARTERIAL BLOOD FIO2 9L
[2020-04-26 08:42] LABS: NT PRO BNP 166 pg/mL (<125)
[2020-04-26 08:44] LABS: TROPONIN I < 0.012 ng/mL
[2020-04-26 10:06] LABS: APPEARANCE,URINE CLEAR; BILIRUBIN,URINE NEGATIVE (NEGATIVE); COLOR,URINE YELLOW; GLUCOSE, URINE NEGATIVE (NEGATIVE); KETONES,URINE NEGATIVE (NEGATIVE); LEUKOCYTE ESTERASE,URINE NEGATIVE (NEGATIVE); NITRITE,URINE NEGATIVE (NEGATIVE); PROTEIN,URINE 100 mg/dL (NEGATIVE); URINE SPECIFIC GRAVITY 1.013; UROBILINOGEN,URINE NEGATIVE mg/dL (<2.0)
[2020-04-26] MEDS ORDERED: B12 PO SCH (17:15)
[2020-04-26] MEDS ORDERED: ACETYLCYSTEINE PO SCH (17:15)
[2020-04-26] MEDS ORDERED: [UNRECOGNIZED DRUG - OTHER] PO SCH (17:15)
[2020-04-26] MEDS ORDERED: (PENDING PHARMACY ID) (Ubidecarenone/Vit E Acet [Co Q-10 100 Mg Softgel] 1 EACH) PO SCH (17:15)
[2020-04-26] MEDS ORDERED: LEVOMEFOLATE PO SCH (17:15)
[2020-04-26] MEDS ORDERED: B6 PO SCH (17:15)
[2020-04-26] MEDS ORDERED: VITAMIN C PO SCH (17:15)
[2020-04-26] MEDS ORDERED: B2 PO SCH (17:15)
[2020-04-26] MEDS ORDERED: B3 PO SCH (17:15)
[2020-04-26] MEDS ORDERED: VIT B1 MN PO SCH (17:15)
[2020-04-26] MEDS ORDERED: B5 PO SCH (17:15)
[2020-04-26] MEDS ORDERED: METHYLCOBALAMIN PO SCH (17:15)
[2020-04-26 17:43] LABS: FREE T4 (FREE THYROXINE) 1.39 ng/dL (0.78-2.19)
[2020-04-26 17:56] LABS: THYROID STIMULATING HORMONE 0.48 uIU/mL (0.47-4.68)
[2020-04-26] MEDS ORDERED: (PENDING PHARMACY ID) (Umeclidinium Brm/Vilanterol Tr [Anoro Ellipta 62.5-25 Mcg Inh] 1 EA IH SCH (18:00)
[2020-04-26] MEDS: LISINOPRIL 10 MG TABLET PO SCH (18:18)
[2020-04-26] MEDS: ASPIRIN 81 MG TABLET, ENT COATED PO SCH (18:18)
[2020-04-26] MEDS: METHYLPREDNISOLONE INJ 125 MG/2 ML SDV IV SCH (18:19)
[2020-04-26] MEDS: ENOXAPARIN SODIUM INJ 40 MG/0.4 ML DISP.SYRIN SUBCUT SCH (18:20)
[2020-04-26 18:49] LABS: INTERNATIONAL RATION (INR) 1.21; PROTHROMBIN TIME 15.5 SEC (11.4-15.4)
[2020-04-26 18:50] LABS: PARTIAL THROMBOPLASTIN TIME 48.3 SEC (23.5-35.8)
[2020-04-26 19:15] LABS: CREATINE KINASE MB 1.58 ng/mL (<4.55)
--- NOTE | 2020-04-26 19:17 | PDOC H&P ---
History of Present Illness Admission Date/PCP: 04/26/20 14:42 BRAULIO DUNCAN History of Present Illness: SEAN BECERRA is a 69 year old male, He has a history of COPD he came to emergency room for evaluation of cough and shortness of breath. The cough is productive of sputum scant amount, no hemoptysis, no chest pain no fever or chills no vomiting, he denied any exposure to SARS-CoV-2. In the emergency room he was evaluated he was found to have labored breathing with the use of accessory muscles of breathing there was expiratory wheeze on auscultation of the lung field.The arterial blood gas on FiO2 of 9 L PO2 174.8, pH 7.31, PCO2 61.2, bicarbonate 30.2 consistent with acute hypercapnic acidosis, will need to reduce the FiO2 of this patient he has COPD he needs hypoxic drive to maintain his breathing Past Medical History Cardiac Medical History: Reports: Hyperlipidema, Hypertension Pulmonary Medical History: Reports: Asthma, Chronic Obstructive Pulmonary Disease (COPD) Neurological Medical History: Reports: Seizures Past Surgical History Past Surgical History: Reports: Orthopedic Surgery - Fibrous Dysplasia resection, Other - Brain tumor Fibrous Dysplasia resection Social History Smoking Status: Former Smoker Frequency of Alcohol Use: None Hx Recreational Drug Use: No Drugs: None Hx Prescription Drug Abuse: No Family History Family History: Reviewed & Not Pertinent Parental Family History Reviewed: Yes Children Family History Reviewed: Yes Sibling(s) Family History Reviewed.: Yes Medication/Allergy Home Medications: Aspirin [Ecotrin 81 mg EC Tablet] 81 mg PO DAILY 04/23/18 Gabapentin [Neurontin] 600 mg PO Q8 04/23/18 Lisinopril [Prinivil] 20 mg PO DAILY 04/23/18 Phenobarbital [Phenobarbital 32.4 mg Tablet] 32.4 mg PO Q12 04/23/18 Simvastatin [Zocor 20 mg Tablet] 20 mg PO QHS 04/23/18 Acetylcyst/[id number]/Levomefol [Metafolbic Plus Caplet] 1 cap PO DAILY 04/26/20 Albuterol Sulfate [Proair Hfa Inhalation Aerosol 8.5 gm Mdi] 1 puff IH Q4 PRN 04/26/20 Phenytoin Sodium Extended [Dilantin 100 mg Capsule.er] 100 mg PO Q12 04/26/20 Ubidecarenone/Vit E Acet [Co Q-10 100 mg Softgel] 1 each PO DAILY 04/26/20 Umeclidinium Brm/Vilanterol Tr [Anoro Ellipta 62.5-25 Mcg INH] 1 each IH BID 04/26/20 Vit B1 Mn/B2/B3/B5/B6/B12/C/FA [B Complex with Vitamin C Tab] 1 each PO DAILY 04/26/20 Allergies/Adverse Reactions: No Known Allergies Allergy (Verified 04/26/20 08:22) Review of Systems Constitutional: ABSENT: chills, fever(s), headache(s), weight gain, weight loss Eyes: ABSENT: visual disturbances Ears: ABSENT: hearing changes Cardiovascular: ABSENT: chest pain, dyspnea on exertion, edema, orthropnea, palpitations Respiratory: PRESENT: cough, dyspnea, sputum. ABSENT: hemoptysis Gastrointestinal: ABSENT: abdominal pain, constipation, diarrhea, hematemesis, hematochezia, nausea, vomiting Genitourinary: ABSENT: dysuria, hematuria Musculoskeletal: ABSENT: joint swelling Integumentary: ABSENT: rash, wounds Neurological: ABSENT: abnormal gait, abnormal speech, confusion, dizziness, focal weakness, syncope Psychiatric: ABSENT: anxiety, depression, homidical ideation, suicidal ideation Endocrine: ABSENT: cold intolerance, heat intolerance, menstrual abnormalities, polydipsia, polyuria Hematologic/Lymphatic: ABSENT: easy bleeding, easy bruising, lymphadenopathy Physical Exam Vital Signs: Temp Pulse Resp BP Pulse Ox 97.9 F 57 L 22 H 146/71 H 99 04/26/20 17:22 04/26/20 17:22 04/26/20 17:22 04/26/20 17:22 04/26/20 17:22 Intake & Output 04/25/20 04/26/20 04/27/20 06:59 06:59 06:59 Intake Total 437 Balance 437 Weight 87.9 kg General appearance: PRESENT: severe distress Head exam: PRESENT: atraumatic, normocephalic Eye exam: PRESENT: PERRLA Mouth exam: PRESENT: moist, tongue midline Neck exam: PRESENT: full ROM Respiratory exam: PRESENT: accessory muscle use, wheezes, other - Barrel-shaped chest wall Cardiovascular exam: PRESENT: RRR, +S1, +S2 GI/Abdominal exam: PRESENT: normal bowel sounds, soft Rectal exam: PRESENT: deferred Neurological exam: PRESENT: alert, CN II-XII grossly intact Psychiatric exam: PRESENT: appropriate affect, normal mood Skin exam: PRESENT: dry, intact, warm Results Laboratory Results: 04/26/20 07:49 04/26/20 07:49 04/26/20 04/26/20 04/26/20 07:49 07:49 07:49 WBC 5.7 RBC 4.60 Hgb 13.6 Hct 41.4 MCV 90 MCH 29.6 MCHC 32.9 RDW 14.5 H Plt Count 240 Seg Neutrophils % 52.2 Carbonic Acid HCO3/H2CO3 Ratio ABG pH ABG pCO2 ABG pO2 ABG HCO3 ABG O2 Saturation ABG Base Excess FiO2 Sodium 143.5 Potassium 4.8 Chloride 102 Carbon Dioxide 29 Anion Gap 13 BUN 12 Creatinine 1.00 Est GFR ( Amer) > 60 Glucose 125 H Calcium 10.1 Phosphorus 4.0 Magnesium 2.3 Total Bilirubin 0.6 AST 26 Alkaline Phosphatase 188 H Ammonia Total Protein 9.6 H Albumin 5.0 Amylase 104 Lipase 117.6 TSH Free T4 Urine Color Urine Appearance Urine pH Ur Specific [place] Urine Protein Urine Glucose (UA) Urine Ketones Urine Blood Urine Nitrite Ur Leukocyte Esterase Urine WBC (Auto) Urine RBC (Auto) 04/26/20 04/26/20 04/26/20 07:49 08:17 09:33 WBC RBC Hgb Hct MCV MCH MCHC RDW Plt Count Seg Neutrophils % Carbonic Acid 1.84 H HCO3/H2CO3 Ratio 16:1 ABG pH 7.31 L ABG pCO2 61.2 H ABG pO2 174.8 H ABG HCO3 30.2 H ABG O2 Saturation 99.0 H ABG Base Excess 2.4 FiO2 9L Sodium Potassium Chloride Carbon Dioxide Anion Gap BUN Creatinine Est GFR ( Amer) Glucose Calcium Phosphorus Magnesium Total Bilirubin AST Alkaline Phosphatase Ammonia Total Protein Albumin Amylase Lipase TSH 0.48 Free T4 1.39 Urine Color YELLOW Urine Appearance CLEAR Urine pH 5.0 Ur Specific [place] 1.013 Urine Protein 100 H Urine Glucose (UA) NEGATIVE Urine Ketones NEGATIVE Urine Blood MODERATE H Urine Nitrite NEGATIVE Ur Leukocyte Esterase NEGATIVE Urine WBC (Auto) 1 Urine RBC (Auto) 9 04/26/20 18:25 WBC RBC Hgb Hct MCV MCH MCHC RDW Plt Count Seg Neutrophils % Carbonic Acid HCO3/H2CO3 Ratio ABG pH ABG pCO2 ABG pO2 ABG HCO3 ABG O2 Saturation ABG Base Excess FiO2 Sodium Potassium Chloride Carbon Dioxide Anion Gap BUN Creatinine Est GFR ( Amer) Glucose Calcium Phosphorus Magnesium Total Bilirubin AST Alkaline Phosphatase Ammonia < 8.7 L Total Protein Albumin Amylase Lipase TSH Free T4 Urine Color Urine Appearance Urine pH Ur Specific [place] Urine Protein Urine Glucose (UA) Urine Ketones Urine Blood Urine Nitrite Ur Leukocyte Esterase Urine WBC (Auto) Urine RBC (Auto) 04/26/20 04/26/20 07:49 18:25 Troponin I < 0.012 NT-Pro-B Natriuret Pep 166 H 223 H Impressions: Chest X-Ray 04/26/20 07:36 IMPRESSION: NO ACUTE RADIOGRAPHIC FINDING IN THE CHEST. Assessment & Plan - Diagnosis (1) Acute hypercapnic respiratory failure Is this a current diagnosis for this admission?: Yes Plan: Patient in respiratory distress with the use of accessory muscle breathing presently requiring supplemental oxygen via nasal cannula, no need for noninvasive positive pressure ventilation, NIPPV. The FiO2 need to be reduced to no more than [address] is needed in this patient with severe COPD. (2) COPD exacerbation Is this a current diagnosis for this admission?: Yes Plan: Start Solu-Medrol intravenously, bronchodilators, IV antibiotic - Time Time Spent: Greater than 70 Minutes Medications reviewed and adjusted accordingly: Yes Anticipated Discharge Disposition: Home, Self Care Anticipated Discharge Timeframe: Within 7 days
[2020-04-26 19:19] LABS: TROPONIN I < 0.012 ng/mL
[2020-04-26] MEDS: LEVOFLOXACIN 750 MG/D5W RTU 750 MG/150 ML RTUPB IV SCH (19:58)
--- NOTE | 2020-04-26 19:58 | RADIOLOGY REPORT (SQ) ---
EXAM DESCRIPTION: CT CHEST WITH IMAGES COMPLETED DATE/TIME: 04/26/2020 7:25 pm REASON FOR STUDY: copd COMPARISON: 04/23/2018 TECHNIQUE: CT scan of the chest performed using helical scanning technique with dynamic intravenous contrast injection. Images reviewed with lung, soft tissue and bone windows. Reconstructed coronal and sagittal MPR and MIP images reviewed. All images stored on PACS. All CT scanners at this facility use dose modulation, iterative reconstruction, and/or weight based d osing when appropriate to reduce radiation dose to as low as reasonably achievable (ALARA). [facility]: Dose Right [facility]: CareDose [facility]: Dose Right [facility]: Teradose 4D [facility]: Connect HQ CONTRAST TYPE AND DOSE: contrast/concentration: Isovue 350.00 mmol/ml; Total Contrast Delivered: 80. 0 ml; Total Saline Delivered: 55.0 ml RENAL FUNCTION: GFR > 60. RADIATION DOSE: CT Rad equipment meets quality standard of care and radiation dose reduction techniq ues were employed. CTDIvol: 11.1 mGy. DLP: 441 mGy-cm. . LIMITATIONS: None. FINDINGS: LUNGS AND PLEURA: Small right pleural effusion and basilar subsegmental atelectasis -scarr ing, chronic. No pneumothorax. No consolidation. No pulmonary masses. HILAR AND MEDIASTINAL STRUCTURES: Similar paratracheal-subcarinal nodes. HEART AND VASCULAR STRUCTURES: No aneurysm or dissection. No central pulmonary emboli. No pericardi al effusion. Heavy atherosclerotic coronary calcifications. HARDWARE: None in the chest. UPPER ABDOMEN: No significant findings. Limited exam. THYROID AND OTHER SOFT TISSUES: No masses. No adenopathy. BONES: No acute finding. OTHER: No other significant finding. IMPRESSION: No acute findings. Small right pleural effusion and basilar subsegmental atelectasis -sc arring, chronic. TECHNICAL DOCUMENTATION: JOB ID: [id number] [place]-72 Quality ID # [id number]: Final reports with documentation of one or more dose reduction techniques (e.g., Au tomated exposure control, adjustment of the mA and/or kV according to patient size, use of iterative reconstruction technique) 2010 [employer]- All Rights Reserved Reading location - IP/workstation name: [email or web address]
[2020-04-26 20:34] LABS: URINE AMPHETAMINES SCREEN NEGATIVE; URINE BARBITURATES SCREEN UNCONFIRMED POSITIVE; URINE BENZODIAZEPINES SCREEN NEGATIVE; URINE COCAINE SCREEN NEGATIVE; URINE MARIJUANA (THC) SCREEN NEGATIVE; URINE METHADONE SCREEN NEGATIVE; URINE PHENCYCLIDINE SCREEN NEGATIVE
[2020-04-26] MEDS: PHENOBARBITAL 32.4 MG TABLET PO SCH (21:12)
[2020-04-26] MEDS: SIMVASTATIN 10 MG TABLET PO SCH (21:12)
[2020-04-26] MEDS: PHENYTOIN SODIUM EXTENDED 100 MG CAPSULE PO SCH (21:12)
[2020-04-26] MEDS: GABAPENTIN 300 MG CAPSULE PO SCH (21:12)
--- NOTE | 2020-04-26 21:49 | EKG REPORT ---
SEVERITY:- OTHERWISE NORMAL ECG - SINUS RHYTHM LEFT AXIS DEVIATION : Confirmed by: Alysa Garcia MD 26-Apr-2020 21:49:09
[2020-04-27 01:43] LABS: CREATINE KINASE MB 1.53 ng/mL (<4.55)
[2020-04-27 01:53] LABS: TROPONIN I < 0.012 ng/mL
[2020-04-27] MEDS: METHYLPREDNISOLONE INJ 125 MG/2 ML SDV IV SCH ×3 (02:53→17:45)
[2020-04-27] MEDS: GABAPENTIN 300 MG CAPSULE PO SCH ×3 (06:23→21:14)
[2020-04-27 07:11] LABS: ABSOLUTE LYMPHOCYTES (AUTO) 0.7 10^3/uL (0.5-4.7); ABSOLUTE MONOCYTES (AUTO) 0.2 10^3/uL (0.1-1.4); ABSOLUTE NEUT (AUTO) 3.5 10^3/uL (1.7-8.2); BASOPHILS % (AUTO) 0.2 % (0-2); EOSINOPHILS % (AUTO) 0.6 % (0-6); HEMATOCRIT 38.8 % (37.9-51.0); HEMOGLOBIN 12.7 g/dL (13.5-17.0); LYMPHOCYTES % (AUTO) 15.7 % (13-45); MEAN CORPUSCULAR HEMOGLOBIN 29.1 pg (27.0-33.4); MEAN CORPUSCULAR HGB CONC 32.8 g/dL (32.0-36.0); MEAN CORPUSCULAR VOLUME 89 fl (80-97); MONOCYTES % (AUTO) 4.7 % (3-13); PLATELET COUNT 232 10^3/uL (150-450); RED BLOOD COUNT 4.38 10^6/uL (4.35-5.55); SEGMENTED NEUTROPHILS % (AUTO) 78.8 % (42-78); TOTAL CELLS COUNTED % (AUTO) 100 %; WHITE BLOOD COUNT 4.5 10^3/uL (4.0-10.5)
[2020-04-27 07:32] LABS: CHOLESTEROL 215.75 mg/dL (0-200); TRIGLYCERIDES 72 mg/dL (<150)
[2020-04-27 07:33] LABS: ALBUMIN 4.3 g/dL (3.5-5.0); ALKALINE PHOSPHATASE 168 U/L (38-126); ANION GAP 12 (5-19); ASPARTATE AMINO TRANSFERASE 22 U/L (17-59); BILIRUBIN,DIRECT 0.5 mg/dL (0.0-0.4); BILIRUBIN,TOTAL 0.5 mg/dL (0.2-1.3); BLOOD UREA NITROGEN 21 mg/dL (7-20); CALCIUM 9.5 mg/dL (8.4-10.2); CARBON DIOXIDE 23 mmol/L (22-30); CHLORIDE 102 mmol/L (98-107); CREATINE KINASE 82 U/L (55-170); GLUCOSE 99 mg/dL (75-110); POTASSIUM 5.6 mmol/L (3.6-5.0); TOTAL PROTEIN 8.5 g/dL (6.3-8.2)
[2020-04-27 07:43] LABS: CREATINE KINASE MB 1.39 ng/mL (<4.55); DIRECT LDL 87 mg/dL (<100)
[2020-04-27 07:45] LABS: TROPONIN I < 0.012 ng/mL
[2020-04-27] MEDS: PHENOBARBITAL 32.4 MG TABLET PO SCH ×2 (10:54→21:14)
[2020-04-27] MEDS: ASPIRIN 81 MG TABLET, ENT COATED PO SCH (10:55)
[2020-04-27] MEDS: ENOXAPARIN SODIUM INJ 40 MG/0.4 ML DISP.SYRIN SUBCUT SCH (10:55)
[2020-04-27] MEDS: PHENYTOIN SODIUM EXTENDED 100 MG CAPSULE PO SCH ×2 (10:55→21:14)
[2020-04-27] MEDS: LISINOPRIL 10 MG TABLET PO SCH (10:55)
--- NOTE | 2020-04-27 11:51 | PDOC PROGRESS REPORT ---
Subjective Progress Note for:: 04/27/20 Subjective:: Patient seen by the bedside, somewhat better today compared to yesterday, still wheezing on auscultation of the chest Reason For Visit: COPD EXACERVATION,PUI FOR COVID Physical Exam Vital Signs: Temp Pulse Resp BP Pulse Ox 97.7 F 57 L 20 125/70 100 04/27/20 08:12 04/27/20 08:12 04/27/20 08:12 04/27/20 08:12 04/27/20 08:12 Intake & Output 04/26/20 04/27/20 04/28/20 06:59 06:59 06:59 Intake Total 587 Balance 587 Weight 87.9 kg General appearance: PRESENT: no acute distress Eye exam: PRESENT: PERRLA Respiratory exam: PRESENT: wheezes Cardiovascular exam: PRESENT: +S1, +S2 GI/Abdominal exam: PRESENT: soft Neurological exam: PRESENT: alert, CN II-XII grossly intact Results Laboratory Results: 04/27/20 06:51 04/27/20 06:51 04/26/20 04/26/20 04/26/20 07:49 07:49 18:25 WBC RBC Hgb Hct MCV MCH MCHC RDW Plt Count Seg Neutrophils % Sodium Potassium Chloride Carbon Dioxide Anion Gap BUN Creatinine Est GFR ( Amer) Glucose Calcium Phosphorus 4.0 Magnesium 2.3 Total Bilirubin AST Alkaline Phosphatase Ammonia < 8.7 L Total Protein Albumin Triglycerides Cholesterol LDL Cholesterol Direct VLDL Cholesterol HDL Cholesterol Amylase 104 Lipase 117.6 TSH 0.48 Free T4 1.39 04/27/20 04/27/20 04/27/20 06:51 06:51 06:51 WBC 4.5 RBC 4.38 Hgb 12.7 L Hct 38.8 MCV 89 MCH 29.1 MCHC 32.8 RDW 14.0 Plt Count 232 Seg Neutrophils % 78.8 H Sodium 136.6 L Potassium 5.6 H Chloride 102 Carbon Dioxide 23 Anion Gap 12 BUN 21 H Creatinine 1.22 Est GFR ( Amer) > 60 Glucose 99 Calcium 9.5 Phosphorus Magnesium Total Bilirubin 0.5 AST 22 Alkaline Phosphatase 168 H Ammonia Total Protein 8.5 H Albumin 4.3 Triglycerides 72 Cholesterol 215.75 H LDL Cholesterol Direct 87 VLDL Cholesterol 14.0 HDL Cholesterol 115 Amylase Lipase TSH Free T4 04/26/20 04/26/20 04/26/20 07:49 18:25 18:25 Creatine Kinase 71 CK-MB (CK-2) Troponin I < 0.012 NT-Pro-B Natriuret Pep 166 H 223 H 04/26/20 04/27/20 04/27/20 18:25 00:45 00:45 Creatine Kinase 81 CK-MB (CK-2) 1.58 1.53 Troponin I < 0.012 < 0.012 NT-Pro-B Natriuret Pep 04/27/20 04/27/20 06:51 06:51 Creatine Kinase 82 CK-MB (CK-2) 1.39 Troponin I < 0.012 NT-Pro-B Natriuret Pep Impressions: Chest CT 04/26/20 00:00 IMPRESSION: No acute findings. Small right pleural effusion and basilar subsegmental atelectasis -scarring, chronic. Chest X-Ray 04/26/20 07:36 IMPRESSION: NO ACUTE RADIOGRAPHIC FINDING IN THE CHEST. Assessment & Plan - Diagnosis (1) Acute hypercapnic respiratory failure Is this a current diagnosis for this admission?: Yes Plan: Continue supplemental oxygen via nasal cannula at 2 L/min (2) COPD exacerbation Is this a current diagnosis for this admission?: Yes Plan: Continue Solu-Medrol, bronchodilators, antibiotic Levaquin - Time Time Spent with patient: 35 or more minutes Level of Care: IMCU Anticipated discharge: Home Anticipated DC Timeframe: within 72 hours
[2020-04-27] MEDS: LEVOFLOXACIN 750 MG/D5W RTU 750 MG/150 ML RTUPB IV SCH (17:45)
[2020-04-27 19:59] LABS: ANION GAP 11 (5-19); BLOOD UREA NITROGEN 33 mg/dL (7-20); CALCIUM 9.8 mg/dL (8.4-10.2); CARBON DIOXIDE 26 mmol/L (22-30); CHLORIDE 99 mmol/L (98-107); GLUCOSE 140 mg/dL (75-110)
[2020-04-27] MEDS ORDERED: INSULIN REG, HUMAN 100 UNIT/ML 3 ML VIAL (PYX) IV ONE (20:30)
[2020-04-27] MEDS ORDERED: CALCIUM GLUCONATE 1000 MG/10 ML INJ IV ONE (20:30)
[2020-04-27] MEDS ORDERED: DEXTROSE 50%-WATER 25 GM/50 ML DISP.SYRIN IV ONE (20:30)
[2020-04-27] MEDS: NORMAL SALINE 1000 ML 1,000 ML IV PRN (20:46)
[2020-04-27] MEDS: SODIUM POLYSTYRENE SULFONATE 15 GM/60 ML PO SCH (20:47)
[2020-04-27] MEDS: SIMVASTATIN 10 MG TABLET PO SCH (21:14)
[2020-04-28] MEDS: METHYLPREDNISOLONE INJ 125 MG/2 ML SDV IV SCH ×3 (01:28→17:21)
[2020-04-28] MEDS: SODIUM POLYSTYRENE SULFONATE 15 GM/60 ML PO SCH (01:28)
[2020-04-28] MEDS: GABAPENTIN 300 MG CAPSULE PO SCH ×3 (05:39→22:25)
[2020-04-28] MEDS: VITAMIN B COMPLEX TABLET PO SCH (10:31)
[2020-04-28] MEDS: ASPIRIN 81 MG TABLET, ENT COATED PO SCH (10:31)
[2020-04-28] MEDS: PHENOBARBITAL 32.4 MG TABLET PO SCH ×2 (10:31→22:25)
[2020-04-28] MEDS: PHENYTOIN SODIUM EXTENDED 100 MG CAPSULE PO SCH ×2 (10:32→22:25)
[2020-04-28] MEDS: ENOXAPARIN SODIUM INJ 40 MG/0.4 ML DISP.SYRIN SUBCUT SCH (10:32)
[2020-04-28] MEDS: LISINOPRIL 10 MG TABLET PO SCH (10:32)
[2020-04-28 14:55] LABS: ABSOLUTE LYMPHOCYTES (AUTO) 1.8 10^3/uL (0.5-4.7); ABSOLUTE MONOCYTES (AUTO) 0.6 10^3/uL (0.1-1.4); ABSOLUTE NEUT (AUTO) 3.5 10^3/uL (1.7-8.2); BASOPHILS % (AUTO) 0.1 % (0-2); EOSINOPHILS % (AUTO) 0.2 % (0-6); HEMATOCRIT 39.6 % (37.9-51.0); HEMOGLOBIN 13.2 g/dL (13.5-17.0); LYMPHOCYTES % (AUTO) 29.7 % (13-45); MEAN CORPUSCULAR HEMOGLOBIN 29.4 pg (27.0-33.4); MEAN CORPUSCULAR HGB CONC 33.3 g/dL (32.0-36.0); MEAN CORPUSCULAR VOLUME 88 fl (80-97); MONOCYTES % (AUTO) 10.3 % (3-13); PLATELET COUNT 236 10^3/uL (150-450); RED BLOOD COUNT 4.49 10^6/uL (4.35-5.55); RED CELL DISTRIBUTION WIDTH 14.1 % (11.5-14.0); SEGMENTED NEUTROPHILS % (AUTO) 59.7 % (42-78); TOTAL CELLS COUNTED % (AUTO) 100 %; WHITE BLOOD COUNT 5.9 10^3/uL (4.0-10.5)
[2020-04-28 15:22] LABS: ANION GAP 8 (5-19); BLOOD UREA NITROGEN 27 mg/dL (7-20); CALCIUM 9.5 mg/dL (8.4-10.2); CARBON DIOXIDE 31 mmol/L (22-30); CHLORIDE 99 mmol/L (98-107); GLUCOSE 107 mg/dL (75-110)
[2020-04-28 15:41] LABS: POTASSIUM 4.8 mmol/L (3.6-5.0)
[2020-04-28] MEDS: LEVOFLOXACIN 750 MG/D5W RTU 750 MG/150 ML RTUPB IV SCH (17:20)
[2020-04-28] MEDS: NORMAL SALINE 1000 ML 1,000 ML IV PRN (17:20)
[2020-04-28] MEDS: SIMVASTATIN 10 MG TABLET PO SCH (22:24)
[2020-04-29] MEDS: METHYLPREDNISOLONE INJ 125 MG/2 ML SDV IV SCH ×3 (03:09→17:32)
[2020-04-29] MEDS: GABAPENTIN 300 MG CAPSULE PO SCH ×3 (05:21→21:08)
[2020-04-29 06:41] LABS: ABSOLUTE BASOPHILS # (AUTO) 0.1 10^3/uL (0.0-0.2); ABSOLUTE EOSINOPHILS # (AUTO) 0.1 10^3/uL (0.0-0.6); ABSOLUTE LYMPHOCYTES (AUTO) 2.3 10^3/uL (0.5-4.7); ABSOLUTE MONOCYTES (AUTO) 0.4 10^3/uL (0.1-1.4); ABSOLUTE NEUT (AUTO) 2.7 10^3/uL (1.7-8.2); BASOPHILS % (AUTO) 1.2 % (0-2); EOSINOPHILS % (AUTO) 1.6 % (0-6); HEMATOCRIT 44.9 % (37.9-51.0); HEMOGLOBIN 14.6 g/dL (13.5-17.0); LYMPHOCYTES % (AUTO) 41.6 % (13-45); MEAN CORPUSCULAR HEMOGLOBIN 28.8 pg (27.0-33.4); MEAN CORPUSCULAR HGB CONC 32.5 g/dL (32.0-36.0); MEAN CORPUSCULAR VOLUME 89 fl (80-97); MONOCYTES % (AUTO) 7.4 % (3-13); PLATELET COUNT 250 10^3/uL (150-450); RED BLOOD COUNT 5.07 10^6/uL (4.35-5.55); RED CELL DISTRIBUTION WIDTH 14.3 % (11.5-14.0); SEGMENTED NEUTROPHILS % (AUTO) 48.2 % (42-78); TOTAL CELLS COUNTED % (AUTO) 100 %; WHITE BLOOD COUNT 5.5 10^3/uL (4.0-10.5)
[2020-04-29 06:53] LABS: ALBUMIN 4.5 g/dL (3.5-5.0); ALKALINE PHOSPHATASE 141 U/L (38-126); ANION GAP 13 (5-19); ASPARTATE AMINO TRANSFERASE 27 U/L (17-59); BILIRUBIN,DIRECT 0.4 mg/dL (0.0-0.4); BILIRUBIN,TOTAL 0.5 mg/dL (0.2-1.3); BLOOD UREA NITROGEN 29 mg/dL (7-20); CALCIUM 9.7 mg/dL (8.4-10.2); CARBON DIOXIDE 27 mmol/L (22-30); CHLORIDE 101 mmol/L (98-107); GLUCOSE 104 mg/dL (75-110); PHOSPHORUS 4.3 mg/dL (2.5-4.5); POTASSIUM 4.5 mmol/L (3.6-5.0); TOTAL PROTEIN 8.7 g/dL (6.3-8.2)
--- NOTE | 2020-04-29 08:44 | PDOC PROGRESS REPORT ---
Subjective Progress Note for:: 04/28/20 Subjective:: Breathing is getting better but still wheezing. No chest pain or palpitation. No fever or chills. No nausea, vomiting, or abdominal pain. Remain in isolation as PUI for COVID-19 infection. Reason For Visit: COPD EXACERVATION,PUI FOR COVID Physical Exam Vital Signs: Temp Pulse Resp BP Pulse Ox 97.9 F 64 23 H 143/66 H 98 04/28/20 12:00 04/28/20 14:00 04/28/20 12:00 04/28/20 12:00 04/28/20 12:00 Intake & Output 04/27/20 04/28/20 04/29/20 06:59 06:59 06:59 Intake Total 323 350 5215 Balance 901 028 4023 Weight 87.9 kg 92.4 kg General appearance: PRESENT: mild distress - with audibke expiratory wheezing Head exam: PRESENT: atraumatic, normocephalic Eye exam: PRESENT: conjunctiva pink. ABSENT: scleral icterus Respiratory exam: PRESENT: prolonged expiratory phas, rhonchi Cardiovascular exam: PRESENT: RRR, +S1, +S2. ABSENT: diastolic murmur, rubs, systolic murmur Vascular exam: ABSENT: pallor GI/Abdominal exam: PRESENT: normal bowel sounds, soft. ABSENT: distended, guarding, mass, organolmegaly, rebound, tenderness Extremities exam: ABSENT: pedal edema Neurological exam: PRESENT: alert, awake, oriented to person, oriented to place, oriented to time, oriented to situation, CN II-XII grossly intact. ABSENT: motor sensory deficit Psychiatric exam: PRESENT: appropriate affect, normal mood. ABSENT: homicidal ideation, suicidal ideation Skin exam: PRESENT: dry, warm Results Laboratory Results: 04/28/20 14:40 04/28/20 14:40 04/27/20 04/28/20 04/28/20 19:15 08:35 14:40 WBC 5.9 RBC 4.49 Hgb 13.2 L Hct 39.6 MCV 88 MCH 29.4 MCHC 33.3 RDW 14.1 H Plt Count 236 Seg Neutrophils % 59.7 Sodium 136.1 L Cancelled Potassium 6.0 H* Cancelled Chloride 99 Cancelled Carbon Dioxide 26 Cancelled Anion Gap 11 Cancelled BUN 33 H Cancelled Creatinine 1.82 H Cancelled Est GFR ( Amer) 45 L Cancelled Est GFR (Non-Af Amer) Cancelled Glucose 140 H Cancelled Calcium 9.8 Cancelled 04/28/20 14:40 WBC RBC Hgb Hct MCV MCH MCHC RDW Plt Count Seg Neutrophils % Sodium 137.5 Potassium 4.8 D Chloride 99 Carbon Dioxide 31 H Anion Gap 8 BUN 27 H Creatinine 1.43 H Est GFR ( Amer) 59 L Est GFR (Non-Af Amer) Glucose 107 Calcium 9.5 04/26/20 04/26/20 04/26/20 07:49 18:25 18:25 Creatine Kinase 71 CK-MB (CK-2) Troponin I < 0.012 NT-Pro-B Natriuret Pep 166 H 223 H 04/26/20 04/27/20 04/27/20 18:25 00:45 00:45 Creatine Kinase 81 CK-MB (CK-2) 1.58 1.53 Troponin I < 0.012 < 0.012 NT-Pro-B Natriuret Pep 04/27/20 04/27/20 06:51 06:51 Creatine Kinase 82 CK-MB (CK-2) 1.39 Troponin I < 0.012 NT-Pro-B Natriuret Pep Impressions: Chest CT 04/26/20 00:00 IMPRESSION: No acute findings. Small right pleural effusion and basilar subsegmental atelectasis -scarring, chronic. Chest X-Ray 04/26/20 07:36 IMPRESSION: NO ACUTE RADIOGRAPHIC FINDING IN THE CHEST. Assessment & Plan - Diagnosis (1) Acute hypercapnic respiratory failure Is this a current diagnosis for this admission?: Yes Plan: Continue current medication management and supplemental oxygen. Follow up on COVID-19 testing result. (2) COPD exacerbation Is this a current diagnosis for this admission?: Yes Plan: Maintain on IV Solu Medrol therapy and bronchodilators therapy. (3) HTN (hypertension) Qualifiers: Hypertension type: essential hypertension Qualified Code(s): I10 - Essential (primary) hypertension Is this a current diagnosis for this admission?: Yes Plan: Maintain on current medication and dietary restriction management. (4) HLD (hyperlipidemia) Qualifiers: Hyperlipidemia type: pure hypercholesterolemia Qualified Code(s): E78.00 - Pure hypercholesterolemia, unspecified Is this a current diagnosis for this admission?: Yes Plan: Maintain on current medication and dietary restriction management. (5) Seizure Is this a current diagnosis for this admission?: Yes Plan: Maintain on current medication and dietary restriction management. - Time Time Spent with patient: 25-34 minutes Level of Care: IMCU Medications reviewed and adjusted accordingly: Yes Anticipated discharge: Home with Homehealth Anticipated DC Timeframe: within 72 hours - Inpatient Certification Based on my medical assessment, after consideration of the patient's comorbidities, presenting symptoms, or acuity I expect that the services needed warrant INPATIENT care.: Yes I certify that my determination is in accordance with my understanding of Medicare's requirements for reasonable and necessary INPATIENT services [42 CFR 412.3e].: Yes Medical Necessity: Significant Comorbidiites Make Outpatient Treatment Too Risky, Need Close Monitoring Due to Risk of Patient Decompensation, Need For IV Fluids, Need For Continuous Telemetry Monitoring, Need for Nebulizer Therapy and Monitoring of Response, Need for IV Antibiotics, Risk of Complication if Not Cared For in Hospital, Risk of Diagnosis Which Will Require Inpatient Eval/Care/Monitoring Post Hospital Care: D/C Health Outreach Worker Documentation - Plan Summary Plan Summary: Continue current therapy with antibiotic coverage. Follow up on COVID-19 findings.
[2020-04-29] MEDS: PHENYTOIN SODIUM EXTENDED 100 MG CAPSULE PO SCH ×2 (09:53→21:08)
[2020-04-29] MEDS: ENOXAPARIN SODIUM INJ 40 MG/0.4 ML DISP.SYRIN SUBCUT SCH (09:53)
[2020-04-29] MEDS: LISINOPRIL 10 MG TABLET PO SCH (09:53)
[2020-04-29] MEDS: VITAMIN B COMPLEX TABLET PO SCH (09:53)
[2020-04-29] MEDS: ASPIRIN 81 MG TABLET, ENT COATED PO SCH (09:54)
[2020-04-29] MEDS: PHENOBARBITAL 32.4 MG TABLET PO SCH ×2 (09:55→21:08)
--- NOTE | 2020-04-29 18:38 | PDOC PROGRESS REPORT ---
Subjective Progress Note for:: 04/29/20 Subjective:: Patient reported improvement in his breathing. No chest pain. No fever or chills. No nausea, vomiting, or abdominal pain. His COVID-19 test was reported not detected. Reason For Visit: COPD EXACERVATION,PUI FOR COVID Physical Exam Vital Signs: Temp Pulse Resp BP Pulse Ox 97.2 F 56 L 20 119/71 98 04/29/20 15:38 04/29/20 15:38 04/29/20 15:38 04/29/20 15:38 04/29/20 15:38 Intake & Output 04/28/20 04/29/20 04/30/20 06:59 06:59 06:59 Intake Total 990 1500 830 Balance 990 1500 830 Weight 92.4 kg 92.4 kg Physical Exam: General appearance: PRESENT: mild distress on 2L/min supplemental oxygen via nasal cannula Head exam: PRESENT: atraumatic, normocephalic Eye exam: PRESENT: conjunctiva pink. ABSENT: pallor, sclera icterus Respiratory exam: PRESENT: minimal rhonchi, scattered crackles Cardiovascular exam: PRESENT: RRR, +S1, +S2. ABSENT: diastolic murmur, rubs, systolic murmur GI/Abdominal exam: PRESENT: normal bowel sounds, soft. ABSENT: distended, guarding, mass, organomegaly, rebound, tenderness Extremities exam: ABSENT: pedal edema Neurological exam: PRESENT: alert, awake, oriented to person, oriented to place, oriented to time, oriented to situation, CN II-XII grossly intact. ABSENT: motor sensory deficit Psychiatric exam: PRESENT: appropriate affect, normal mood. ABSENT: homicidal ideation, suicidal ideation Skin exam: PRESENT: dry, warm Results Laboratory Results: 04/29/20 06:08 04/29/20 06:08 04/29/20 04/29/20 06:08 06:08 WBC 5.5 RBC 5.07 Hgb 14.6 Hct 44.9 MCV 89 MCH 28.8 MCHC 32.5 RDW 14.3 H Plt Count 250 Seg Neutrophils % 48.2 Sodium 141.0 Potassium 4.5 Chloride 101 Carbon Dioxide 27 Anion Gap 13 BUN 29 H Creatinine 1.40 H Est GFR ( Amer) > 60 Glucose 104 Calcium 9.7 Phosphorus 4.3 Magnesium 2.3 Total Bilirubin 0.5 AST 27 Alkaline Phosphatase 141 H Total Protein 8.7 H Albumin 4.5 04/26/20 09:33 Clean Catch Midstream Urine Culture - Final Staph Coagulase Negative 04/26/20 04/26/20 04/26/20 07:49 18:25 18:25 Creatine Kinase 71 CK-MB (CK-2) Troponin I < 0.012 NT-Pro-B Natriuret Pep 166 H 223 H 04/26/20 04/27/20 04/27/20 18:25 00:45 00:45 Creatine Kinase 81 CK-MB (CK-2) 1.58 1.53 Troponin I < 0.012 < 0.012 NT-Pro-B Natriuret Pep 04/27/20 04/27/20 06:51 06:51 Creatine Kinase 82 CK-MB (CK-2) 1.39 Troponin I < 0.012 NT-Pro-B Natriuret Pep Impressions: Chest CT 04/26/20 00:00 IMPRESSION: No acute findings. Small right pleural effusion and basilar subsegmental atelectasis -scarring, chronic. Chest X-Ray 04/26/20 07:36 IMPRESSION: NO ACUTE RADIOGRAPHIC FINDING IN THE CHEST. Assessment & Plan - Diagnosis (1) Acute hypercapnic respiratory failure Is this a current diagnosis for this admission?: Yes (2) COPD exacerbation Is this a current diagnosis for this admission?: Yes (3) HTN (hypertension) Qualifiers: Hypertension type: essential hypertension Qualified Code(s): I10 - Essential (primary) hypertension Is this a current diagnosis for this admission?: Yes (4) HLD (hyperlipidemia) Qualifiers: Hyperlipidemia type: pure hypercholesterolemia Qualified Code(s): E78.00 - Pure hypercholesterolemia, unspecified Is this a current diagnosis for this admission?: Yes (5) Seizure Is this a current diagnosis for this admission?: Yes - Time Time Spent with patient: 25-34 minutes Level of Care: IMCU Medications reviewed and adjusted accordingly: Yes Anticipated discharge: Home with Homehealth Anticipated DC Timeframe: within 72 hours - Inpatient Certification Based on my medical assessment, after consideration of the patient's comorbidities, presenting symptoms, or acuity I expect that the services needed warrant INPATIENT care.: Yes I certify that my determination is in accordance with my understanding of Medicare's requirements for reasonable and necessary INPATIENT services [42 CFR 412.3e].: Yes Medical Necessity: Significant Comorbidiites Make Outpatient Treatment Too Risky, Need Close Monitoring Due to Risk of Patient Decompensation, Need For IV Fluids, Need For Continuous Telemetry Monitoring, Need for Nebulizer Therapy and Monitoring of Response, Need for IV Antibiotics, Risk of Complication if Not Cared For in Hospital, Risk of Diagnosis Which Will Require Inpatient Eval/Care /Monitoring Post Hospital Care: D/C Porcelain Mixer Documentation - Plan Summary Plan Summary: Continue current medication management. Follow up on blood culture findings.
[2020-04-29] MEDS: SIMVASTATIN 10 MG TABLET PO SCH (21:07)
[2020-04-29] MEDS: LEVOFLOXACIN 750 MG TABLET PO SCH (21:08)
[2020-04-30] MEDS: NORMAL SALINE 1000 ML 1,000 ML IV PRN ×2 (01:03→19:40)
[2020-04-30] MEDS: METHYLPREDNISOLONE INJ 125 MG/2 ML SDV IV SCH ×3 (01:03→17:23)
[2020-04-30] MEDS: GABAPENTIN 300 MG CAPSULE PO SCH ×3 (05:06→23:02)
[2020-04-30] MEDS: ASPIRIN 81 MG TABLET, ENT COATED PO SCH (09:32)
[2020-04-30] MEDS: ENOXAPARIN SODIUM INJ 40 MG/0.4 ML DISP.SYRIN SUBCUT SCH (09:32)
[2020-04-30] MEDS: PHENYTOIN SODIUM EXTENDED 100 MG CAPSULE PO SCH ×2 (09:32→23:02)
[2020-04-30] MEDS: VITAMIN B COMPLEX TABLET PO SCH (09:33)
[2020-04-30] MEDS: PHENOBARBITAL 32.4 MG TABLET PO SCH ×2 (09:33→23:03)
[2020-04-30] MEDS: LISINOPRIL 10 MG TABLET PO SCH (09:33)
--- NOTE | 2020-04-30 18:04 | PDOC PROGRESS REPORT ---
Subjective Progress Note for:: 04/30/20 Subjective:: Patient reported that he is breathing better. No chest pain. No fever or chills. No nausea, vomiting, or abdominal pain. Reason For Visit: COPD EXACERVATION,PUI FOR COVID Physical Exam Vital Signs: Temp Pulse Resp BP Pulse Ox 97.8 F 81 19 95/68 L 98 04/30/20 16:58 04/30/20 16:58 04/30/20 16:58 04/30/20 16:58 04/30/20 16:58 Intake & Output 04/29/20 04/30/20 05/01/20 06:59 06:59 06:59 Intake Total 1500 2667 680 Output Total 900 480 Balance 1500 1767 200 Weight 92.4 kg 92.4 kg Physical Exam: General appearance: PRESENT: mild distress with intermittent use of supplemental oxygen via nasal cannula Head exam: PRESENT: atraumatic, normocephalic Eye exam: PRESENT: conjunctiva pink. ABSENT: pallor, sclera icterus Respiratory exam: PRESENT: minimal expiratory rhonchi Cardiovascular exam: PRESENT: RRR, +S1, +S2. ABSENT: diastolic murmur, rubs, systolic murmur GI/Abdominal exam: PRESENT: normal bowel sounds, soft. ABSENT: distended, guarding, mass, organomegaly, rebound, tenderness Extremities exam: ABSENT: pedal edema Neurological exam: PRESENT: alert, awake, oriented to person, oriented to place, oriented to time, oriented to situation, CN II-XII grossly intact. ABSENT: motor sensory deficit Psychiatric exam: PRESENT: appropriate affect, normal mood. ABSENT: homicidal ideation, suicidal ideation Skin exam: PRESENT: dry, warm Results Laboratory Results: 04/29/20 06:08 04/29/20 06:08 04/26/20 04/26/20 04/26/20 07:49 18:25 18:25 Creatine Kinase 71 CK-MB (CK-2) Troponin I < 0.012 NT-Pro-B Natriuret Pep 166 H 223 H 04/26/20 04/27/20 04/27/20 18:25 00:45 00:45 Creatine Kinase 81 CK-MB (CK-2) 1.58 1.53 Troponin I < 0.012 < 0.012 NT-Pro-B Natriuret Pep 04/27/20 04/27/20 06:51 06:51 Creatine Kinase 82 CK-MB (CK-2) 1.39 Troponin I < 0.012 NT-Pro-B Natriuret Pep Impressions: Chest CT 04/26/20 00:00 IMPRESSION: No acute findings. Small right pleural effusion and basilar subsegmental atelectasis -scarring, chronic. Chest X-Ray 04/26/20 07:36 IMPRESSION: NO ACUTE RADIOGRAPHIC FINDING IN THE CHEST. Assessment & Plan - Diagnosis (1) Acute hypercapnic respiratory failure Is this a current diagnosis for this admission?: Yes (2) COPD exacerbation Is this a current diagnosis for this admission?: Yes (3) HTN (hypertension) Qualifiers: Hypertension type: essential hypertension Qualified Code(s): I10 - Essenti al (primary) hypertension Is this a current diagnosis for this admission?: Yes (4) HLD (hyperlipidemia) Qualifiers: Hyperlipidemia type: pure hypercholesterolemia Qualified Code(s): E78.00 - Pure hypercholesterolemia, unspecified Is this a current diagnosis for this admission?: Yes (5) Seizure Is this a current diagnosis for this admission?: Yes - Time Time Spent with patient: 25-34 minutes Level of Care: IMCU Medications reviewed and adjusted accordingly: Yes Anticipated discharge: Home Anticipated DC Timeframe: within 72 hours - Inpatient Certification Based on my medical assessment, after consideration of the patient's comorbidities, presenting symptoms, or acuity I expect that the services needed warrant INPATIENT care.: Yes I certify that my determination is in accordance with my understanding of Medicare's requirements for reasonable and necessary INPATIENT services [42 CFR 412.3e].: Yes Medical Necessity: Significant Comorbidiites Make Outpatient Treatment Too Risky, Need Close Monitoring Due to Risk of Patient Decompensation, Need For IV Fluids, Need For Continuous Telemetry Monitoring, Need for Nebulizer Therapy and Monitoring of Response, Need for IV Antibiotics, Risk of Complication if Not Cared For in Hospital, Risk of Diagnosis Which Will Require Inpatient Eval/Car e/Monitoring 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 Continue all other current medication management.
[2020-04-30] MEDS: SIMVASTATIN 10 MG TABLET PO SCH (23:02)
[2020-04-30] MEDS: LEVOFLOXACIN 750 MG TABLET PO SCH (23:04)
[2020-05-01] MEDS: IPRATROPIUM/ALBUTEROL 0.5-2.5 MG/3 ML AMPUL NEB PRN ×3 (01:17→20:34)
[2020-05-01] MEDS: METHYLPREDNISOLONE INJ 125 MG/2 ML SDV IV SCH ×2 (01:20→09:38)
[2020-05-01] MEDS: GABAPENTIN 300 MG CAPSULE PO SCH ×3 (05:46→21:38)
[2020-05-01] MEDS: NORMAL SALINE 1000 ML 1,000 ML IV PRN ×2 (09:37→21:38)
[2020-05-01] MEDS: VITAMIN B COMPLEX TABLET PO SCH (09:37)
[2020-05-01] MEDS: PHENYTOIN SODIUM EXTENDED 100 MG CAPSULE PO SCH ×2 (09:38→21:38)
[2020-05-01] MEDS: LISINOPRIL 10 MG TABLET PO SCH (09:38)
[2020-05-01] MEDS: ENOXAPARIN SODIUM INJ 40 MG/0.4 ML DISP.SYRIN SUBCUT SCH (09:38)
[2020-05-01] MEDS: PHENOBARBITAL 32.4 MG TABLET PO SCH ×2 (09:38→21:38)
[2020-05-01] MEDS: ASPIRIN 81 MG TABLET, ENT COATED PO SCH (09:38)
--- NOTE | 2020-05-01 17:47 | PDOC PROGRESS REPORT ---
Subjective Progress Note for:: 05/01/20 Subjective:: No chest pain or difficulty with breathing. No fever or chills. No nausea, vomiting, or abdominal pain. Tolerating oral feeding. Reason For Visit: COPD EXACERVATION,PUI FOR COVID Physical Exam Vital Signs: Temp Pulse Resp BP Pulse Ox 97.6 F 71 18 115/55 L 94 05/01/20 16:33 05/01/20 16:33 05/01/20 16:33 05/01/20 16:33 05/01/20 16:33 Intake & Output 04/30/20 05/01/20 05/02/20 06:59 06:59 06:59 Intake Total 2667 1902 1917 Output Total 900 1630 450 Balance 1425 902 7304 Weight 92.4 kg 92.4 kg Physical Exam: General appearance: PRESENT: mild distress with intermittent use of supplemental oxygen via nasal cannula Head exam: PRESENT: atraumatic, normocephalic Eye exam: PRESENT: conjunctiva pink. ABSENT: pallor, sclera icterus Respiratory exam: PRESENT: minimal end expiratory phase rhonchi Cardiovascular exam: PRESENT: RRR, +S1, +S2. ABSENT: diastolic murmur, rubs, systolic murmur GI/Abdominal exam: PRESENT: normal bowel sounds, soft. ABSENT: distended, guarding, mass, organomegaly, rebound, tenderness Extremities exam: ABSENT: pedal edema Neurological exam: PRESENT: alert, awake, oriented to person, oriented to place, oriented to time, oriented to situation, CN II-XII grossly intact. ABSENT: motor sensory deficit Psychiatric exam: PRESENT: appropriate affect, normal mood. ABSENT: homicidal ideation, suicidal ideation Skin exam: PRESENT: dry, warm Results Laboratory Results: 04/29/20 06:08 04/29/20 06:08 04/26/20 07:49 Blood Blood Culture - Final NO GROWTH IN 5 DAYS 04/26/20 04/26/20 04/26/20 07:49 18:25 18:25 Creatine Kinase 71 CK-MB (CK-2) Troponin I < 0.012 NT-Pro-B Natriuret Pep 166 H 223 H 04/26/20 04/27/20 04/27/20 18:25 00:45 00:45 Creatine Kinase 81 CK-MB (CK-2) 1.58 1.53 Troponin I < 0.012 < 0.012 NT-Pro-B Natriuret Pep 04/27/20 04/27/20 06:51 06:51 Creatine Kinase 82 CK-MB (CK-2) 1.39 Troponin I < 0.012 NT-Pro-B Natriuret Pep Impressions: Chest CT 04/26/20 00:00 IMPRESSION: No acute findings. Small right pleural effusion and basilar subsegmental atelectasis -scarring, chronic. Chest X-Ray 04/26/20 07:36 IMPRESSION: NO ACUTE RADIOGRAPHIC FINDING IN THE CHEST. Assessment & Plan - Diagnosis (1) Acute hypercapnic respiratory failure Is this a current diagnosis for this admission?: Yes (2) COPD exacerbation Is this a current diagnosis for this admission?: Yes (3) HTN (hypertension) Qualifiers: Hypertension type: essential hypertension Qualified Code(s): I10 - Essential (primary) hypertension Is this a current diagnosis for this admission?: Yes (4) HLD (hyperlipidemia) Qualifiers: Hyperlipidemia type: pure hypercholesterolemia Qualified Code(s): E78.00 - Pure hypercholesterolemia, unspecified Is this a current diagnosis for this admission?: Yes (5) Seizure Is this a current diagnosis for this admission?: Yes - Time Time Spent with patient: 25-34 minutes Level of Care: IMCU Anticipated discharge: Home Anticipated DC Timeframe: within 72 hours - Inpatient Certification Based on my medical assessment, after consideration of the patient's comorbidities, presenting symptoms, or acuity I expect that the services needed warrant INPATIENT care.: Yes I certify that my determination is in accordance with my understanding of Medicare's requirements for reasonable and necessary INPATIENT services [42 CFR 412.3e].: Yes Medical Necessity: Significant Comorbidiites Make Outpatient Treatment Too Risky, Need Close Monitoring Due to Risk of Patient Decompensation, Need For IV Fluids, Need For Continuous Telemetry Monitoring, Need for Nebulizer Therapy and Monitoring of Response, Risk of Complication if Not Cared For in Hospital, Risk of Diagnosis Which Will Require Inpatient Eval/Care/Monitoring 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 Maintain on all other current medication management.
[2020-05-01] MEDS: METHYLPREDNISOLONE INJ 40 MG/1 ML SDV IV SCH (17:58)
[2020-05-01] MEDS ORDERED: METHYLPREDNISOLONE INJ 125 MG/2 ML SDV IV SCH (18:00)
[2020-05-01] MEDS: LEVOFLOXACIN 750 MG TABLET PO SCH (21:38)
[2020-05-01] MEDS: SIMVASTATIN 10 MG TABLET PO SCH (21:38)
[2020-05-02] MEDS: METHYLPREDNISOLONE INJ 40 MG/1 ML SDV IV SCH ×2 (00:59→09:38)
[2020-05-02] MEDS: GABAPENTIN 300 MG CAPSULE PO SCH ×2 (05:18→14:15)
[2020-05-02 06:43] LABS: ABSOLUTE MONOCYTES (AUTO) 0.3 10^3/uL (0.1-1.4); ABSOLUTE NEUT (AUTO) 3.1 10^3/uL (1.7-8.2); BASOPHILS % (AUTO) 0.1 % (0-2); LYMPHOCYTES % (AUTO) 22.7 % (13-45); MEAN CORPUSCULAR HEMOGLOBIN 28.7 pg (27.0-33.4); MEAN CORPUSCULAR HGB CONC 32.3 g/dL (32.0-36.0); MEAN CORPUSCULAR VOLUME 89 fl (80-97); MONOCYTES % (AUTO) 6.3 % (3-13); PLATELET COUNT 202 10^3/uL (150-450); RED BLOOD COUNT 4.28 10^6/uL (4.35-5.55); RED CELL DISTRIBUTION WIDTH 14.3 % (11.5-14.0); SEGMENTED NEUTROPHILS % (AUTO) 70.9 % (42-78); TOTAL CELLS COUNTED % (AUTO) 100 %; WHITE BLOOD COUNT 4.4 10^3/uL (4.0-10.5)
[2020-05-02 06:52] LABS: HEMOGLOBIN 12.3 g/dL (13.5-17.0)
[2020-05-02 07:12] LABS: ALBUMIN 3.8 g/dL (3.5-5.0); ALKALINE PHOSPHATASE 100 U/L (38-126); ANION GAP 10 (5-19); ASPARTATE AMINO TRANSFERASE 23 U/L (17-59); BILIRUBIN,DIRECT 0.3 mg/dL (0.0-0.4); BILIRUBIN,TOTAL 0.3 mg/dL (0.2-1.3); BLOOD UREA NITROGEN 20 mg/dL (7-20); CALCIUM 8.9 mg/dL (8.4-10.2); CARBON DIOXIDE 27 mmol/L (22-30); CHLORIDE 103 mmol/L (98-107); GLUCOSE 108 mg/dL (75-110); POTASSIUM 5.2 mmol/L (3.6-5.0); TOTAL PROTEIN 7.3 g/dL (6.3-8.2)
[2020-05-02] MEDS ORDERED: INFLUENZA QUAD (6MOS+) 2020-21 VAC 0.5 ML SYR IM ONE (08:00)
[2020-05-02] MEDS: LISINOPRIL 10 MG TABLET PO SCH (09:38)
[2020-05-02] MEDS: ENOXAPARIN SODIUM INJ 40 MG/0.4 ML DISP.SYRIN SUBCUT SCH (09:38)
[2020-05-02] MEDS: PHENOBARBITAL 32.4 MG TABLET PO SCH (09:38)
[2020-05-02] MEDS: VITAMIN B COMPLEX TABLET PO SCH (09:39)
[2020-05-02] MEDS: PHENYTOIN SODIUM EXTENDED 100 MG CAPSULE PO SCH (09:39)
[2020-05-02] MEDS: ASPIRIN 81 MG TABLET, ENT COATED PO SCH (09:39)
[2020-05-02] MEDS: IPRATROPIUM/ALBUTEROL 0.5-2.5 MG/3 ML AMPUL NEB PRN (09:50)
[2020-05-02 09:53] LABS: HEMATOCRIT 38.2 % (37.9-51.0); HEMOGLOBIN 12.5 g/dL (13.5-17.0); MEAN CORPUSCULAR HGB CONC 32.8 g/dL (32.0-36.0); MEAN CORPUSCULAR VOLUME 89 fl (80-97); PLATELET COUNT 200 10^3/uL (150-450); RED BLOOD COUNT 4.32 10^6/uL (4.35-5.55); RED CELL DISTRIBUTION WIDTH 13.8 % (11.5-14.0); WHITE BLOOD COUNT 5.4 10^3/uL (4.0-10.5)
--- NOTE | 2020-05-02 14:48 | PDOC DISCHARGE SUMMARY ---
Impression - Admit/DC Date/PCP Admission Date/Primary Care Provider: 04/26/20 14:42 BRAULIO DUNCAN Discharge Date: 05/02/20 - Discharge Diagnosis (1) Acute hypercapnic respiratory failure Is this a current diagnosis for this admission?: Yes (2) COPD exacerbation Is this a current diagnosis for this admission?: Yes (3) HTN (hypertension) Is this a current diagnosis for this admission?: Yes (4) HLD (hyperlipidemia) Is this a current diagnosis for this admission?: Yes (5) Seizure Is this a current diagnosis for this admission?: Yes (6) Acute renal injury due to hypovolemia Is this a current diagnosis for this admission?: Yes - Assessment Summary: Patient was admitted for worsening shortness of breath with concern for possible COVID-1 infection. He was reported negative for COVID-19 infection. He remain on bronchodilators and IV Solu Medrol therapy along with IV Levofloxacin for exacerbated COPD. He responded well to treatment and transition to oral therapy. His presenting acute kidney injury did resolved before discharge. He will be discharge home today and follow up in the office as instructed upon discharge. - Additional Information Resuscitation Status: Full Code Discharge Diet: As Tolerated Discharge Activity: Activity As Tolerated Referrals: BRAULIO DUNCAN MD [Primary Care Provider] - 05/07/20 9:00 am Prescriptions: Ipratropium/Albuterol Sulfate [Combivent Respimat 4 gm Mdi] 1 puff IH Q6 #1 aer.w.adap Prednisone 10 mg PO ASDIR PRN #21 tablet PRN Reason: Home Medications: Aspirin [Ecotrin 81 mg EC Tablet] 81 mg PO DAILY 04/23/18 Gabapentin [Neurontin] 600 mg PO Q8 04/23/18 Lisinopril [Prinivil] 20 mg PO DAILY 04/23/18 Phenobarbital [Phenobarbital 32.4 mg Tablet] 32.4 mg PO Q12 04/23/18 Simvastatin [Zocor 20 mg Tablet] 20 mg PO QHS 04/23/18 Acetylcyst/Hprajbk08/Levomefol [Metafolbic Plus Caplet] 1 cap PO DAILY 04/26/20 Phenytoin Sodium Extended [Dilantin 100 mg Capsule.er] 100 mg PO Q12 04/26/20 Ubidecarenone/Vit E Acet [Co Q-10 100 mg Softgel] 1 each PO DAILY 04/26/20 Umeclidinium Brm/Vilanterol Tr [Anoro Ellipta 62.5-25 Mcg INH] 1 each IH BID 04/26/20 Vit B1 Mn/B2/B3/B5/B6/B12/C/FA [B Complex with Vitamin C Tab] 1 each PO DAILY 04/26/20 Ipratropium/Albuterol Sulfate [Combivent Respimat 4 gm Mdi] 1 puff IH Q6 #1 aer.w.adap 05/02/20 Prednisone 10 mg PO ASDIR PRN #21 tablet 05/02/20 History of Present Illiness History of Present Illness: SEAN BECERRA is a 69 year old male, He has a history of COPD he came to emergency room for evaluation of cough and shortness of breath. The cough is productive of sputum scant amount, no hemoptysis, no chest pain no fever or chills no vomiting, he denied any exposure to SARS-CoV-2. In the emergency room he was evaluated he was found to have labored breathing with the use of accessory muscles of breathing there was expiratory wheeze on auscultation of the lung field.The arterial blood gas on FiO2 of 9 L PO2 174.8, pH 7.31, PCO2 61.2, bicarbonate 30.2 consistent with acute hypercapnic acidosis, will need to reduce the FiO2 of this patient he has COPD he needs hypoxic drive to maintain his breathing Hospital Course Hospital Course: Patient was admitted for worsening shortness of breath with concern for possible COVID-1 infection. He was reported negative for COVID-19 infection. He remain on bronchodilators and IV Solu Medrol therapy along with IV Levofloxacin for exacerbated COPD. He responded well to treatment and transition to oral therapy. His presenting acute kidney injury did resolved before discharge. He will be discharge home today and follow up in the office as instructed upon discharge. Physical Exam Vital Signs: Temp Pulse Resp BP Pulse Ox 97.7 F 55 L 16 126/68 H 100 05/02/20 10:00 05/02/20 07:46 05/02/20 07:46 05/02/20 07:46 05/02/20 07:46 Intake & Output 05/01/20 05/02/20 05/03/20 06:59 06:59 06:59 Intake Total 1902 3118 Output Total 7038 6157 Balance 272 -607 Weight 92.4 kg 99.9 kg General appearance: PRESENT: No acute distress Head exam: PRESENT: atraumatic, normocephalic Eye exam: PRESENT: conjunctiva pink. ABSENT: pallor, sclera icterus Respiratory exam: PRESENT: minimal end expiratory phase rhonchi Cardiovascular exam: PRESENT: RRR, +S1, +S2. ABSENT: diastolic murmur, rubs, systolic murmur GI/Abdominal exam: PRESENT: normal bowel sounds, soft. ABSENT: distended, guarding, mass, organomegaly, rebound, tenderness Extremities exam: ABSENT: pedal edema Neurological exam: PRESENT: alert, awake, oriented to person, oriented to place, oriented to time, oriented to situation, CN II-XII grossly intact. ABSENT: motor sensory deficit Psychiatric exam: PRESENT: appropriate affect, normal mood. ABSENT: homicidal ideation, suicidal ideation Skin exam: PRESENT: dry, warm Results Laboratory Results: WBC 5.4 10^3/uL (4.0-10.5) 05/02/20 08:52 RBC 4.32 10^6/uL (4.35-5.55) L 05/02/20 08:52 Hgb 12.5 g/dL (13.5-17.0) L 05/02/20 08:52 Hct 38.2 % (37.9-51.0) 05/02/20 08:52 MCV 89 fl (80-97) 05/02/20 08:52 MCH 29.0 pg (27.0-33.4) 05/02/20 08:52 MCHC 32.8 g/dL (32.0-36.0) 05/02/20 08:52 RDW 13.8 % (11.5-14.0) 05/02/20 08:52 Plt Count 200 10^3/uL (150-450) 05/02/20 08:52 Lymph % (Auto) 22.7 % (13-45) 05/02/20 05:42 [place] % (Auto) 6.3 % (3-13) 05/02/20 05:42 Eos % (Auto) 0.0 % (0-6) 05/02/20 05:42 Baso % (Auto) 0.1 % (0-2) 05/02/20 05:42 Absolute Neuts (auto) 3.1 10^3/uL (1.7-8.2) 05/02/20 05:42 Absolute Lymphs (auto) 1.0 10^3/uL (0.5-4.7) 05/02/20 05:42 Absolute Monos (auto) 0.3 10^3/uL (0.1-1.4) 05/02/20 05:42 Absolute Eos (auto) 0.0 10^3/uL (0.0-0.6) 05/02/20 05:42 Absolute Basos (auto) 0.0 10^3/uL (0.0-0.2) 05/02/20 05:42 Seg Neutrophils % 70.9 % (42-78) 05/02/20 05:42 PT 15.5 SEC (11.4-15.4) H 04/26/20 18:25 INR 1.21 04/26/20 18:25 APTT 48.3 SEC (23.5-35.8) H 04/26/20 18:25 Carbonic Acid 1.84 mmol/L (1.05-1.35) H 04/26/20 08:17 HCO3/H2CO3 Ratio 16:1 04/26/20 08:17 ABG pH 7.31 (7.35-7.45) L 04/26/20 08:17 ABG pCO2 61.2 mmHg (35-45) H 04/26/20 08:17 ABG pO2 174.8 mmHg (80-100) H 04/26/20 08:17 ABG HCO3 30.2 mmol/L (20-24) H 04/26/20 08:17 ABG Total CO2 32.1 mmol/L (23-27) H 04/26/20 08:17 ABG O2 Saturation 99.0 % (94-98) H 04/26/20 08:17 ABG Base Excess 2.4 mmol/L 04/26/20 08:17 FiO2 9L 04/26/20 08:17 Sodium 139.9 mmol/L (137-145) 05/02/20 05:42 Potassium 5.2 mmol/L (3.6-5.0) H 05/02/20 05:42 Chloride 103 mmol/L (98-107) 05/02/20 05:42 Carbon Dioxide 27 mmol/L (22-30) 05/02/20 05:42 Anion Gap 10 (5-19) 05/02/20 05:42 BUN 20 mg/dL (7-20) 05/02/20 05:42 Creatinine 1.16 mg/dL (0.52-1.25) 05/02/20 05:42 Est GFR ( Amer) > 60 (>60) 05/02/20 05:42 Est GFR (Non-Af Amer) Cancelled 04/28/20 08:35 Est GFR (MDRD) Non-Af > 60 (>60) 05/02/20 05:42 Glucose 108 mg/dL (75-110) 05/02/20 05:42 Hemoglobin A1c % 5.3 % (4.7-6.0) 04/27/20 06:51 Calcium 8.9 mg/dL (8.4-10.2) 05/02/20 05:42 Phosphorus 4.3 mg/dL (2.5-4.5) 04/29/20 06:08 Magnesium 2.3 mg/dL (1.6-2.3) 04/29/20 06:08 Total Bilirubin 0.3 mg/dL (0.2-1.3) 05/02/20 05:42 Direct Bilirubin 0.3 mg/dL (0.0-0.4) 05/02/20 05:42 Neonat Total Bilirubin Not Reportable 05/02/20 05:42 Neonat Direct Bilirubin Not Reportable 05/02/20 05:42 Neonat Indirect Bili Not Reportable 05/02/20 05:42 AST 23 U/L (17-59) 05/02/20 05:42 ALT 17 U/L (<50) 05/02/20 05:42 Alkaline Phosphatase 100 U/L (38-126) 05/02/20 05:42 Ammonia < 8.7 umol/L (9-33) L 04/26/20 18:25 Creatine Kinase 82 U/L (55-170) 04/27/20 06:51 CK-MB (CK-2) 1.39 ng/mL (<4.55) 04/27/20 06:51 Troponin I < 0.012 ng/mL 09/27/20 06:51 NT-Pro-B Natriuret Pep 223 pg/mL (<125) H 04/26/20 18:25 Total Protein 7.3 g/dL (6.3-8.2) 05/02/20 05:42 Albumin 3.8 g/dL (3.5-5.0) 05/02/20 05:42 Triglycerides 72 mg/dL (<150) 04/27/20 06:51 Cholesterol 215.75 mg/dL (0-200) H 04/27/20 06:51 LDL Cholesterol Direct 87 mg/dL (<100) 04/27/20 06:51 VLDL Cholesterol 14.0 mg/dL (10-31) 04/27/20 06:51 HDL Cholesterol 115 mg/dL (>40) 04/27/20 06:51 Amylase 104 U/L (30-110) 04/26/20 07:49 Lipase 117.6 U/L (23-300) 04/26/20 07:49 EGFR Cancelled 04/28/20 08:35 TSH 0.48 uIU/mL (0.47-4.68) 04/26/20 07:49 Free T4 1.39 ng/dL (0.78-2.19) 04/26/20 07:49 Urine Color YELLOW 04/26/20 09:33 Urine Appearance CLEAR 04/26/20 09:33 Urine pH 5.0 (5.0-9.0) 04/26/20 09:33 Ur Specific Winn 1.013 04/26/20 09:33 Urine Protein 100 mg/dL (NEGATIVE) H 04/26/20 09:33 Urine Glucose (UA) NEGATIVE mg/dL (NEGATIVE) 04/26/20 09:33 Urine Ketones NEGATIVE mg/dL (NEGATIVE) 04/26/20 09:33 Urine Blood MODERATE (NEGATIVE) H 04/26/20 09:33 Urine Nitrite NEGATIVE (NEGATIVE) 04/26/20 09:33 Urine Bilirubin NEGATIVE (NEGATIVE) 04/26/20 09:33 Urine Urobilinogen NEGATIVE mg/dL (<2.0) 04/26/20 09:33 Ur Leukocyte Esterase NEGATIVE (NEGATIVE) 04/26/20 09:33 Urine WBC (Auto) 1 /HPF 04/26/20 09:33 Urine RBC (Auto) 9 /HPF 04/26/20 09:33 Urine Bacteria (Auto) TRACE /HPF 04/26/20 09:33 Squamous Epi Cells Auto <1 /HPF 04/26/20 09:33 Urine Mucus (Auto) RARE /LPF 04/26/20 09:33 Urine Ascorbic Acid 40 (NEGATIVE) H 04/26/20 09:33 Urine Opiates Screen NEGATIVE 04/26/20 09:33 Urine Methadone Screen NEGATIVE 04/26/20 09:33 Ur Barbiturates Screen UNCONFIRMED POSITIVE 04/26/20 09:33 Phenytoin 16.1 ug/mL (10.0-20.0) 04/26/20 09:33 Ur Phencyclidine Scrn NEGATIVE 04/26/20 09:33 Ur Amphetamines Screen NEGATIVE 04/26/20 09:33 U Benzodiazepines Scrn NEGATIVE 04/26/20 09:33 Urine Cocaine Screen NEGATIVE 04/26/20 09:33 U Marijuana (THC) Screen NEGATIVE 04/26/20 09:33 COVID-19 Source See comment 04/26/20 14:29 COVID-19 ([facility]) Not Detected (Not Detect) 04/26/20 14:29 04/26/20 04/26/20 04/26/20 07:49 18:25 18:25 CK-MB (CK-2) 1.58 Troponin I < 0.012 < 0.012 NT-Pro-B Natriuret Pep 166 H 223 H 04/27/20 04/27/20 00:45 06:51 CK-MB (CK-2) 1.53 1.39 Troponin I < 0.012 < 0.012 NT-Pro-B Natriuret Pep Impressions: Chest CT 04/26/20 00:00 IMPRESSION: No acute findings. Small right pleural effusion and basilar subsegmental atelectasis -scarring, chronic. Chest X-Ray 04/26/20 07:36 IMPRESSION: NO ACUTE RADIOGRAPHIC FINDING IN THE CHEST. Plan Health Concerns: Exacerbation of his COPD. Plan of Treatment: Maintain on tapering dose Prednisone therapy along with Anoro and use of Combivent Respimat for acute wheezing management. We will consider triple therapy inhaler if necessary on outpatient evaluation. Goals: Reduce readmission risk and frequency of exacerbation. Time Spent: Greater than 30 Minutes - I had extensive discussion with patient regarding post acute care management plan. Stroke Is this a Stroke Patient?: No Acute Heart Failure Is this a Heart Failure Patient?: No
[2020-05-02 14:52] VITALS: BP 143/66
== END 2020-05-02 15:25 | disposition home or self-care (01) | DRG 189 ==
LOC: ER 07:31 → EH 14:42 → 3N 17:24 → 3S 04-29 07:45
PROVIDERS: ADMIT Internal Medicine Geriatric Medicine; ATTEND Internal Medicine Geriatric Medicine
DX: J96.02 Acute respiratory failure with hypercapnia (principal); J44.1 Chronic obstructive pulmonary disease with (acute) exacerbation; N17.9 Acute kidney failure, unspecified; I10 Essential (primary) hypertension; E78.5 Hyperlipidemia, unspecified; E86.1 Hypovolemia; Z20.828 Contact with and (suspected) exposure to other viral communicable diseases; Z87.891 Personal history of nicotine dependence; Z79.899 Other long term (current) drug therapy
CPT/HCPCS: 36415; 71045; 71260; 80048; 80053; 80061; 80185; 80307; 81001; 82140; 82150; 82550; 82553; 82803; 83036; 83690; 83735; 83880; 84100; 84439; 84443; 84484; 85025; 85610; 85730; 87040; 87086; 87635; 93005; 93010; 94640; 96365; 96366; 96375; 99285; C9803; J0610; J1650; J1815; J1956; J2920; J2930; J3475; J3490; J7030

== ENCOUNTER → 2020-05-28 | Outpatient (CLI) | payer MEDICARE, OTHER ==
--- NOTE | 2020-05-28 22:07 | XCELERA REPORT ---
[address] [address] Transthoracic Echocardiogram Report Name: SEAN BECERRA Age: 69 yrs Gender: Male : 1950 Patient Status: Preadmit Patient Location: [facility] Study Date: 05/28/2020 12:08 PM History: NSTEMI COPD HTN Height: 71 in Weight: 200 lb BSA: 2.1 m2 Procedure: A complete two-dimensional transthoracic echocardiogram was performed (2D, M-mode, spectral and color flow Doppler). The study was technically difficult with many images being suboptimal in quality. Reason For Study: NSTEMI Previous Evaluation: No previous studies were available. History: NSTEMI COPD HTN. HTN. Ordering Physician: CALVIN MEDINA Performed By: Maeve Locke Interpretation Summary Left ventricular systolic function is normal. The Ejection Fraction estimate is 55-60% The right ventricle is normal in size and function. There is a trace amount of mitral regurgitation There is no aortic valve stenosis There is a trace amount of tricuspid regurgitation There is no pericardial effusion. MMode/2D Measurements & Calculations RVDd: 2.3 cm LVIDd: 4.3 cm FS: 28.4 % Ao root diam: 2.3 cm IVSd: 0.72 cm LVIDs: 3.1 cm EDV(Teich): 83.5 ml Ao root area: 4.3 cm2 LVPWd: 0.91 cm ESV(Teich): 37.4 ml EF(Teich): 55.2 % Doppler Measurements & Calculations MV E max agustin: MV dec slope: Ao V2 max: LV V1 max P.9 cm/sec 348.1 cm/sec2 140.8 cm/sec 6.7 mmHg MV A max agustin: MV dec time: 0.24 sec Ao max PG: LV V1 max: 77.4 cm/sec 7.9 mmHg 129.8 cm/sec MV E/A: 1.1 PA V2 max: PI end-d agustin: 82.2 cm/sec 77.0 cm/sec PA max P.7 mmHg Left Ventricle The left ventricle is normal in size. There is normal left ventricular wall thickness. Left ventricular systolic function is normal. The Ejection Fraction estimate is 55-60%. LV diastolic function could not be adequately assessed. Regional wall motion abnormalities cannot be excluded due to limited visualization. Right Ventricle The right ventricle is normal in size and function. Atria The right atrium is normal. The left atrial size is normal. The interatrial septum is intact with no evidence for an atrial septal defect. There is no Doppler evidence for an interatrial shunt. Mitral Valve The mitral valve is grossly normal. There is no mitral valve stenosis. There is a trace amount of mitral regurgitation. Aortic Valve The aortic valve opens well. The aortic valve is trileaflet. The aortic valve is normal in structure and function. There is no aortic valve stenosis. No aortic regurgitation is present. Tricuspid Valve The tricuspid valve is not well visualized, but is grossly normal. There is no tricuspid stenosis. There is a trace amount of tricuspid regurgitation. Tricuspid regurgitation jet envelope not well defined to measure RV systolic pressure accurately. Pulmonic Valve The pulmonic valve is not well seen, but is grossly normal. There is no pulmonic valvular stenosis. There is a trace amount of pulmonic regurgitation. Great Vessels The aortic root is normal size. The inferior vena cava appeared normal and decreased > 50% with respiration (RAP 5-10 mmHg). Effusions There is no pericardial effusion. : CALVIN MEDINA Anil
== END ==
LOC: SP 12:00
PROVIDERS: ATTEND Internal Medicine
DX: I10 Essential (primary) hypertension (principal); I25.9 Chronic ischemic heart disease, unspecified; I21.4 Non-ST elevation (NSTEMI) myocardial infarction; J44.9 Chronic obstructive pulmonary disease, unspecified; R06.00 Dyspnea, unspecified
CPT/HCPCS: 93306

== ENCOUNTER → 2020-06-02 | Outpatient (CLI) | payer MEDICARE, OTHER ==
[~2020-06-02] MED LIST: REGADENOSON INJ 0.4 MG/5 ML DISP.SYRIN IV ONE
--- NOTE | 2020-06-02 15:30 | DRAGON STRESS TEST REPORT ---
Pharmacological nuclear stress test Date: June 02, 2020 Referring physician: Self Performing physician: Matt Medina MD Indication: Non-STEMI Clinical history 69-year-old male with medical history significant for systemic hypertension, dyslipidemia, COPD with presented to the emergency room with cough and wheezing. This was likely a COPD exacerbation but he did have elevated troponin with a non-STEMI. We decided to proceed with pharmacological nuclear stress testing to evaluate for myocardial ischemia. Procedure The patient presented to the stress lab. Initially rest images were obtained according to standard protocol after the injection of of 14.86 millicurie technetium 99m sestamibi. Subsequently the patient underwent pharmacological stress utilizing 0.4 mg of regadenoson intravenously. The patient's EKG and vital signs were monitored throughout the procedure. Subsequently patient was injected with 38 millicuries of technetium 99m sestamibi. After a period of rest, stress images were obtained according to standard protocol. EKG showed sinus bradycardia at 56 beats per minute. The patient's stress EKG did not show any evidence for myocardial ischemia. There were no arrhythmias observed. Raw as well as processed rest and stress images were reviewed. There was mild to moderate gut uptake which did not interfere with the study. The rest and stress images show uniform uptake of radioactive isotope without any fixed or reversible defects to suggest myocardial ischemia or myocardial infarction. There is evidence of diaphragmatic attenuation on the study. There is normal contractility post-rest. The calculated ejection fraction is 67 %. The TID ratio is 1.10. Conclusion The stress EKG is negative for myocardial ischemia There is no scintigraphic evidence of myocardial infarction or ischemia provoked by pharmacological stress. There is normal contractility post-stress. The gated left ventricular ejection fraction is 67%. The patient will be given an appointment to discuss these results. [facility]
== END ==
LOC: RAD 05-26 08:23
PROVIDERS: ATTEND Internal Medicine
DX: I10 Essential (primary) hypertension (principal); I25.9 Chronic ischemic heart disease, unspecified; I21.4 Non-ST elevation (NSTEMI) myocardial infarction; J44.9 Chronic obstructive pulmonary disease, unspecified; E78.5 Hyperlipidemia, unspecified; F17.211 Nicotine dependence, cigarettes, in remission; G47.39 Other sleep apnea; Z86.73 Personal history of transient ischemic attack (TIA), and cerebral infarction without residual deficits; G40.802 Other epilepsy, not intractable, without status epilepticus
CPT/HCPCS: 93017; 78452; A9500; J2785; Q9969